=== PATIENT | female | born 1940 | race Caucasian/White ===

== ENCOUNTER 2022-11-08 12:50 | Outpatient (OUT) | payer MEDICARE, OTHER, SELFPAY ==
--- NOTE | 2022-11-08 14:10 | PM.CN ---
Consult Note: HPI Data of Consult Patient: known to practice within the last 3 years Consult date: 11/08/22 Requesting Physician: Elisa Donohue MD Primary Care Provider: Danae Wallace MD Consult Narrative Reason for consult: Low back pain, midback pain Narrative: This is a pleasant 82-year-old female who presents for system. She notes persistence of pain throughout her low back, as well as new pain in her right abdomen. She denies any recent trauma or falls. She previously underwent bilateral sacroiliac joint injections approximately one year ago, which provided greater than fifty percent relief for over a three-month period. She notes similar symptoms as before. She recently underwent lumbar imaging, which is significant for multilevel facet arthropathy throughout her lumbar spine. She has a considerable amount of scoliosis. She denies adverse medication side effects loss of bowel or bladder control. cc:: CC: Elisa Donohue MD Review of Systems ROS Status of ROS 10 or more systems reviewed and unremarkable except as noted in history and below Meds Home Medications and Allergies Home Medications Medication Instructions Recorded Confirmed Type acetaminophen 650 mg 650 mg PO Q8H PAIN 11/08/22 11/08/22 History tablet,extended release (8 Hour Pain Reliever) ascorbic acid (vitamin C) 1,000 mg 1 g PO DAILY 11/08/22 11/08/22 History tablet (Vitamin C) cholecalciferol (vitamin D3) 50 50 mcg PO DAILY 11/08/22 11/08/22 History mcg (2,000 unit) tablet (Vitamin D3) diphenhydramine 25 2 tab PO .HS PRN sleep 11/08/22 11/08/22 History mg-acetaminophen 500 mg tablet (Tylenol PM Extra Strength) magnesium 200 mg tablet 200 mg PO DAILY 11/08/22 11/08/22 History zinc 50 mg tablet 50 mg PO DAILY 11/08/22 11/08/22 History Exam Constitutional Common normals: no apparent distress, oriented x3 and healthy appearing Respiratory Common normals: normal respiratory effort Effort & inspection: able to speak in complete sentences Back & Pelvis Other: tenderness to palpation throughout the lower spine and paraspinal musculature. Pain is elicited with flexion, extension, and lateral rotation of the lumbar spine. Facet loading maneuvers are positive bilaterally. Tenderness to palpation over the bilateral PSIS. Magdy's maneuver is positive bilaterally. Positive thigh thrust bilaterally. Coordination remains intact. Gait remains mildly antalgic. Extremity Common normals: normal to inspection Neuro Common normals: oriented x3, CN's II-XII intact bilaterally and no focal motor deficits Psych Common normals: mental status grossly normal and cooperative Assessment and Plan Assessment and Plan (1) Thoracic back pain: (2) Lumbar spondylosis: (3) Sacroiliac joint pain: Plan This is a pleasant 82-year-old female presents for assessment. She has failed physical medical modalities, as stated above. Given that her pain is similar to the pain that she had prior to her sacroiliac joint injections bilaterally last year, which provided substantial relief for greater than three months, it is prudent to repeat bilateral sacroiliac joint injections provide further analgesia. She is in agreement with this plan. In terms of her new pain in the right abdomen, I would like her to undergo a thoracic x-ray to ensure that there is no compression fracture. She expressed understanding. Medications were reviewed, and no changes were made at this time. She will follow-up after the procedure and imaging are complete.
== END 2022-11-08 12:51 ==
LOC: PM 12:50
PROVIDERS: PCP Family Medicine; Visit Provider Anesthesiology
DX: M54.6 Pain in thoracic spine (principal); M47.814 Spondylosis without myelopathy or radiculopathy, thoracic region; M41.86 Other forms of scoliosis, lumbar region; M53.3 Sacrococcygeal disorders, not elsewhere classified
CPT/HCPCS: 72070; G0463

== ENCOUNTER 2022-11-08 14:03 | Outpatient (OUT) | payer MEDICARE, OTHER, SELFPAY ==
--- NOTE | 2022-11-08 14:15 | XR_ITS ---
[facility] [id number] Patient Name: DACIA ESPINOZA MRN: [id number] date: 1940 Sex: F Assigned Patient Location: [facility] Current Patient Location: [facility] Accession/Order Number: [id number] Exam Date: 11/08/2022 14:29 Report Date: 11/09/2022 09:42 At the request of: ISSAC KIRKPATRICKEDRALOLITA Procedure: XR thoracic spine 2V EXAMINATION: XR thoracic spine 2V HISTORY: Thoracic Back Pain COMPARISON: XR L-spine 11/04/2020 FINDINGS: BONES: Marked scoliotic curvature of lumbar spine and involving the lower thoracic spine. No fracture, spondylolisthesis or bone lesion. DISC SPACES: No significant disc height narrowing, subluxation, or endplate abnormality. PARASPINOUS: Negative. No paraspinous abnormality is seen. OTHER: Negative. IMPRESSION: 1. Grossly stable marked scoliosis of lumbar spine. 2. Multilevel mild degenerative changes of thoracic spine; no appreciable acute abnormality. Electronically authenticated by: MARKY BEAL Date: 11/09/2022 09:42
== END 2022-11-08 14:04 ==
PROVIDERS: PCP Family Medicine; Visit Provider Anesthesiology
DX: M54.6 Pain in thoracic spine (principal); M41.86 Other forms of scoliosis, lumbar region; M47.814 Spondylosis without myelopathy or radiculopathy, thoracic region
CPT/HCPCS: 72070

== ENCOUNTER 2022-11-22 08:27 | Day surgery (SDC) | payer MEDICARE, OTHER, SELFPAY ==
[2022-11-22 09:22] VITALS: BP 162/71; PULSE 71; RESP 16; TEMP 36.6; O2SAT 100
[2022-11-22] MEDS: BUPIVACAINE HCL 0.25% PF 25 MG/10 ML VIAL INJ (10:14)
[2022-11-22] MEDS: IOHEXOL 240 MG/ML - 10 ML VIAL INJ (10:15)
[2022-11-22] MEDS: LIDOCAINE HCL 2% PF 100 MG/5 ML VIAL INJ (10:15)
[2022-11-22] MEDS: TRIAMCINOLONE ACETONIDE 40 MG/ML VIAL INJ (10:16)
--- NOTE | 2022-11-22 10:17 | W.PM.PROCNOT ---
Date of procedure: 11/22/22 Pre-op diagnosis: sacroiliitis, bilateral Post-op diagnosis: same Procedure: Procedure: Bilateral block of the nerve innervating the sacroiliac joint Medications: Bupivacaine 0.25% 3cc, kenalog 40mg x2 After informed consent was obtained, the patient was brought to the medical procedure unit and placed in the prone position, when a timeout was completed verifying correct patient, procedure, site, positioning, implant, and/or special equipment.? The skin overlying the area was prepped and draped in standard sterile fashion using alcohol.? A 25-gauge needle was inserted and guided towards the nerve that innervates the left sacroiliac joint under direct fluoroscopic imaging.? Needle tip was advanced and contrast was injected, which showed no vascular uptake.? We then instilled a total of 3 mL of solution.? Postoperatively needles were removed. The same procedure was then completed on the opposite side. The patient tolerated the procedure well without complication.? The patient reported reduction in pain symptoms postoperatively. Anesthesia: None Surgeon: Elisa Donohue Condition: stable
[2022-11-22 12:25] VITALS: BP 155/69; BP 170/72; PULSE 68; PULSE 79; RESP 18; O2SAT 95; O2SAT 96
== END 2022-11-22 10:23 | disposition home or self-care (01) ==
LOC: SURGOUT 08:31
PROVIDERS: PCP Family Medicine; Visit Provider Anesthesiology
DX: M46.1 Sacroiliitis, not elsewhere classified (principal)
CPT/HCPCS: 27096; Q9966

== ENCOUNTER 2022-12-06 14:45 | Outpatient (OUT) | payer MEDICARE, OTHER, SELFPAY ==
--- NOTE | 2022-12-06 15:15 | PM.CN ---
Consult Note: HPI Data of Consult Patient: known to practice within the last 3 years Consult date: 12/06/22 Requesting Physician: Elisa Donohue MD Primary Care Provider: Danae Wallace MD Consult Narrative Reason for consult: Low back pain, R>L Narrative: this is a pleasant 82-year-old female who presents for this. She recently underwent bilateral sacroiliac joint injections and notes significant relief on her left side, though more moderate relief on her right side. She continues to have axial low back pain which has been ongoing for greater than three months. Her lumbar imaging was reviewed, which is significant for severe facet arthropathy throughout the lower lumbar spine. She notes increasing pain while ambulating. She recently completed physical therapy and continues in provider directed home exercises, which she has performed for greater than three months. She utilizes Tylenol, which she has taken for greater than three months. She denies adverse medication side effects or loss of bowel or bladder control. GHADA 34 cc:: CC: Elisa Donohue MD Review of Systems ROS Status of ROS 10 or more systems reviewed and unremarkable except as noted in history and below PFSH PFS Medical History Surgical History Meds Home Medications and Allergies Home Medications Medication Instructions Recorded Confirmed Type acetaminophen 650 mg 650 mg PO Q8H PAIN 11/08/22 11/22/22 History tablet,extended release (8 Hour Pain Reliever) ascorbic acid (vitamin C) 1,000 mg 1 g PO DAILY 11/08/22 11/22/22 History tablet (Vitamin C) calcium 100 mg capsule mg PO .QD 11/08/22 History carbidopa 25 mg-levodopa 100 mg 1 tab PO QID 11/08/22 11/22/22 History tablet (Sinemet) cholecalciferol (vitamin D3) 50 50 mcg PO DAILY 11/08/22 11/22/22 History mcg (2,000 unit) tablet (Vitamin D3) diphenhydramine 25 2 tab PO .HS PRN sleep 11/08/22 11/22/22 History mg-acetaminophen 500 mg tablet (Tylenol PM Extra Strength) magnesium 200 mg tablet 200 mg PO DAILY 11/08/22 11/22/22 History multivitamin 1 tab PO DAILY 11/08/22 11/22/22 History zinc 50 mg tablet 50 mg PO DAILY 11/08/22 11/22/22 History Allergies Allergy/AdvReac Type Severity Reaction Status Date / Time No Known Drug Allergies Allergy Verified 11/22/22 09:31 Exam Constitutional Common normals: no apparent distress, oriented x3 and healthy appearing Respiratory Common normals: normal respiratory effort Effort & inspection: able to speak in complete sentences Back & Pelvis Other: tenderness to palpation throughout the lumbar spine and paraspinal musculature. Pain is elicited with flexion, extension, and lateral lumbar spine. Facet loading maneuvers are positive bilaterally. Coordination remains intact. Gait remains antalgic. Extremity Common normals: normal to inspection Neuro Common normals: oriented x3, CN's II-XII intact bilaterally and no focal motor deficits Psych Common normals: mental status grossly normal and cooperative Assessment and Plan Assessment and Plan (1) Lumbar spondylosis: (2) Lumbar stenosis with neurogenic claudication: (3) Sacroiliac joint pain: Plan this is a pleasant 82-year-old female who presents for assessment. I wanted she had moderate to significant relief after her recent sacroiliac joint injection, but I suspect that her residual axial back pain as a consequence of the severe facet arthropathy in her lower lumbar spine. Given her symptomatology and imaging findings, coupled with her failure to respond to greater than three months of conservative measures, it is prudent to attempt diagnostic bilateral L4-5, L5-S1 medial branch blocks under fluoroscopic guidance with the intention of proceeding to a frequency ablation. She is in agreement with this plan. Medications were reviewed, and no changes were made at this time. She will follow-up after the procedure is completed.
== END 2022-12-06 14:46 | disposition home or self-care (01) ==
LOC: PM 14:45
PROVIDERS: PCP Family Medicine; Visit Provider Anesthesiology
DX: M47.816 Spondylosis without myelopathy or radiculopathy, lumbar region (principal); M48.062 Spinal stenosis, lumbar region with neurogenic claudication; M53.3 Sacrococcygeal disorders, not elsewhere classified
CPT/HCPCS: G0463

== ENCOUNTER 2022-12-13 07:52 | Day surgery (SDC) | payer MEDICARE, OTHER, SELFPAY ==
[2022-12-13 08:33] VITALS: BP 182/80; PULSE 75; RESP 14; TEMP 36.8; O2SAT 100
[2022-12-13] MEDS: LIDOCAINE HCL 2% PF 100 MG/5 ML VIAL INJ (09:07)
[2022-12-13] MEDS: BUPIVACAINE HCL 0.25% PF 25 MG/10 ML VIAL INJ (09:07)
[2022-12-13] MEDS: TRIAMCINOLONE ACETONIDE 40 MG/ML VIAL INJ (09:07)
--- NOTE | 2022-12-13 09:10 | W.PM.PROCNOT ---
Date of procedure: 12/13/22 Pre-op diagnosis: Lumbosacral spondylosis Post-op diagnosis: same Procedure: Procedure: Bilateral L4-5, L5-S1 medial branch block Medications: Bupivacaine 0.25% 5cc The patient was seen and examined in the preoperative holding area.? An informed consent was obtained and placed on the chart.? The patient was brought to the medical procedure unit and placed in the prone position.? A timeout was completed verifying correct patient, procedure site, positioning, plan, and special equipment.? Using aseptic technique, the needle was placed at left L4. Under direct fluoroscopic visualization a Quincke-tipped spinal needle was advanced to the junction of the superior articulating process with the transverse process at the designated medial branch segment.? Preceded by negative aspiration, the above-mentioned injectate was placed in 1 mL aliquots.? The procedure was repeated at left L5, S1.? The needle was removed and insertion site was covered. The same procedure, at the same levels, was completed on the right side. The patient was taken to the postprocedural recovery area and monitored for an appropriate length of time before found suitable for discharge in the company of a responsible adult. Anesthesia: None Surgeon: Elisa Donohue Pathology: none sent Condition: stable
[2022-12-13 14:34] VITALS: BP 179/77; BP 198/82; PULSE 74; PULSE 76; RESP 18; O2SAT 97; O2SAT 98
== END 2022-12-13 09:17 | disposition home or self-care (01) ==
PROVIDERS: PCP Family Medicine; Visit Provider Anesthesiology
DX: M47.817 Spondylosis without myelopathy or radiculopathy, lumbosacral region (principal)
CPT/HCPCS: 64493; 64494

== ENCOUNTER 2022-12-27 12:50 | Outpatient (OUT) | payer MEDICARE, OTHER, SELFPAY ==
--- NOTE | 2022-12-27 13:19 | PM.CN ---
Consult Note: HPI Data of Consult Patient: known to practice within the last 3 years Consult date: 12/27/22 Requesting Physician: Elisa Donohue MD Primary Care Provider: Danae Wallace MD Consult Narrative Reason for consult: Lumbosacral spondylosis Narrative: This is a pleasant 82-year-old female who presents for assessment. She recently underwent diagnostic bilateral L4-L5, L5-S1 medial branch blocks and notes significant relief of her pain of greater than eighty percent for over two hours and subsequent return of her pain to baseline. She continues to now have persistent axial low back pain. she has engaged in provider directed home exercises for greater than three months. She continues to utilize Tylenol number which provides mild relief, which she has done for over 3 months. She otherwise denies any medication side effects with possible bladder control. cc:: CC: Elisa Donohue MD Review of Systems ROS Status of ROS 10 or more systems reviewed and unremarkable except as noted in history and below PFSH PFS Medical History Surgical History Meds Home Medications and Allergies Home Medications Medication Instructions Recorded Confirmed Type acetaminophen 650 mg 650 mg PO Q8H PAIN 11/08/22 12/13/22 History tablet,extended release (8 Hour Pain Reliever) ascorbic acid (vitamin C) 1,000 mg 1 g PO DAILY 11/08/22 12/13/22 History tablet (Vitamin C) calcium 100 mg capsule mg PO .QD 11/08/22 History carbidopa 25 mg-levodopa 100 mg 1 tab PO QID 11/08/22 12/13/22 History tablet (Sinemet) cholecalciferol (vitamin D3) 50 50 mcg PO DAILY 11/08/22 12/13/22 History mcg (2,000 unit) tablet (Vitamin D3) diphenhydramine 25 2 tab PO .HS PRN sleep 11/08/22 12/13/22 History mg-acetaminophen 500 mg tablet (Tylenol PM Extra Strength) magnesium 200 mg tablet 200 mg PO DAILY 11/08/22 12/13/22 History multivitamin 1 tab PO DAILY 11/08/22 12/13/22 History zinc 50 mg tablet 50 mg PO DAILY 11/08/22 12/13/22 History Allergies Allergy/AdvReac Type Severity Reaction Status Date / Time No Known Drug Allergies Allergy Verified 11/22/22 09:31 Exam Narrative Exam Narrative: GHADA 36 Constitutional Common normals: no apparent distress, oriented x3 and healthy appearing Respiratory Common normals: normal respiratory effort Effort & inspection: able to speak in complete sentences Back & Pelvis Lumbar spine/lower back: pain with ROM Other: tenderness to palpation throughout the lumbar spine and paraspinal musculature. Pain is elicited with flexion, extension, and lateral rotation of the lumbar spine. Facet loading maneuvers are positive bilaterally. Coordination remains intact. Gait remains mildly antalgic. Extremity Common normals: normal to inspection Neuro Common normals: oriented x3, CN's II-XII intact bilaterally and no focal motor deficits Psych Common normals: mental status grossly normal and cooperative Assessment and Plan Assessment and Plan (1) Lumbar stenosis with neurogenic claudication: (2) Lumbar spondylosis: (3) Sacroiliac joint pain: Plan this is a pleasant 82-year-old female who presents for assessment. She had significant relief after her recent lumbar medial branch blocks, as noted above. Given her significant response and failure to respond to conservative measures for greater than three months, as mentioned above, it is prudent to proceed with a 2nd diagnostic bilateral L4-L5, L5-S1 medial branch block under fluoroscopic guidance with the intention of proceeding to radiofrequency ablation. She is in agreement with this plan. Medications were reviewed. I recommended that she not exceed 3000 mg of Tylenol daily. She expressed understanding. She will follow up after the procedures completed.
== END 2022-12-27 12:51 | disposition home or self-care (01) ==
LOC: PM 12:51
PROVIDERS: PCP Family Medicine; Visit Provider Anesthesiology
DX: M47.816 Spondylosis without myelopathy or radiculopathy, lumbar region (principal); M53.3 Sacrococcygeal disorders, not elsewhere classified; M48.062 Spinal stenosis, lumbar region with neurogenic claudication
CPT/HCPCS: G0463

== ENCOUNTER 2023-01-10 09:23 | Day surgery (SDC) | payer MEDICARE, OTHER, SELFPAY ==
[2023-01-10 09:53] VITALS: BP 144/69; PULSE 77; RESP 16; TEMP 36.8; O2SAT 100
[2023-01-10] MEDS: LIDOCAINE HCL 2% PF 100 MG/5 ML VIAL INJ (10:35)
[2023-01-10] MEDS: BUPIVACAINE HCL 0.25% PF 25 MG/10 ML VIAL INJ (10:35)
[2023-01-10] MEDS: TRIAMCINOLONE ACETONIDE 40 MG/ML VIAL INJ (10:35)
--- NOTE | 2023-01-10 10:38 | W.PM.PROCNOT ---
Date of procedure: 01/10/23 Pre-op diagnosis: Lumbosacral spondylosis Post-op diagnosis: same as pre-op Procedure: Procedure: Bilateral L4-5, L5-S1 medial branch block Medications: Bupivacaine 0.25% 4cc The patient was seen and examined in the preoperative holding area.? An informed consent was obtained and placed on the chart.? The patient was brought to the medical procedure unit and placed in the prone position.? A timeout was completed verifying correct patient, procedure site, positioning, plan, and special equipment.? Using aseptic technique, the needle was placed at left L4. Under direct fluoroscopic visualization a Quincke-tipped spinal needle was advanced to the junction of the superior articulating process with the transverse process at the designated medial branch segment.? Preceded by negative aspiration, the above-mentioned injectate was placed in 1 mL aliquots.? The procedure was repeated at left L5, S1.? The needle was removed and insertion site was covered. The same procedure, at the same levels, was completed on the right side. The patient was taken to the postprocedural recovery area and monitored for an appropriate length of time before found suitable for discharge in the company of a responsible adult. Anesthesia: None Surgeon: Elisa Donohue Pathology: none sent Condition: stable Disposition: no change
[2023-01-10 14:20] VITALS: BP 149/68; BP 153/69; PULSE 77; PULSE 80; RESP 20; O2SAT 96
== END 2023-01-10 10:45 | disposition home or self-care (01) ==
PROVIDERS: PCP Family Medicine; Visit Provider Anesthesiology
DX: M47.817 Spondylosis without myelopathy or radiculopathy, lumbosacral region (principal)
CPT/HCPCS: 64493; 64494

== ENCOUNTER 2023-01-24 13:12 | Outpatient (OUT) | payer MEDICARE, OTHER, SELFPAY ==
--- NOTE | 2023-01-24 14:55 | PM.CN ---
Consult Note: HPI Data of Consult Patient: new to practice Consult date: 01/24/23 Requesting Physician: Elisa Donohue MD Primary Care Provider: Danae Wallace MD Consult Narrative Reason for consult: Low back pain Narrative: 82yof who presents for assessment. Underwent diagnostic bilateral L4-5, L5-S1 medial branch blocks x2, both with >80% relief for >2 hours and return of pain to baseline. Now still has low back pain that is axial. Continues in provider directed home exercise program. Utilizes tylenol. Denies side effects. cc:: CC: Elisa Donohue MD Review of Systems ROS Status of ROS 10 or more systems reviewed and unremarkable except as noted in history and below PFSH PFS Medical History Surgical History Meds Home Medications and Allergies Home Medications Medication Instructions Recorded Confirmed Type acetaminophen 650 mg 650 mg PO Q8H PAIN 11/08/22 01/10/23 History tablet,extended release (8 Hour Pain Reliever) ascorbic acid (vitamin C) 1,000 mg 1 g PO DAILY 11/08/22 01/10/23 History tablet (Vitamin C) calcium 100 mg capsule mg PO .QD 11/08/22 History carbidopa 25 mg-levodopa 100 mg 1 tab PO QID 11/08/22 01/10/23 History tablet (Sinemet) cholecalciferol (vitamin D3) 50 50 mcg PO DAILY 11/08/22 01/10/23 History mcg (2,000 unit) tablet (Vitamin D3) diphenhydramine 25 2 tab PO .HS PRN sleep 11/08/22 01/10/23 History mg-acetaminophen 500 mg tablet (Tylenol PM Extra Strength) magnesium 200 mg tablet 200 mg PO DAILY 11/08/22 01/10/23 History multivitamin 1 tab PO DAILY 11/08/22 01/10/23 History zinc 50 mg tablet 50 mg PO DAILY 11/08/22 01/10/23 History Allergies Allergy/AdvReac Type Severity Reaction Status Date / Time No Known Drug Allergies Allergy Verified 11/22/22 09:31 Exam Narrative Exam Narrative: GHADA 20 Constitutional Common normals: no apparent distress, oriented x3 and healthy appearing Respiratory Common normals: normal respiratory effort Effort & inspection: able to speak in complete sentences Back & Pelvis Lumbar spine/lower back: pain with ROM Other: tenderness to palpation throughout the lumbar spine and paraspinal musculature. Pain is elicited with flexion, extension, and lateral rotation of the lumbar spine. Facet loading maneuvers are positive bilaterally. Coordination remains intact. Gait remains mildly antalgic. Extremity Common normals: normal to inspection Neuro Common normals: oriented x3, CN's II-XII intact bilaterally and no focal motor deficits Psych Common normals: mental status grossly normal and cooperative Assessment and Plan Assessment and Plan (1) Lumbar spondylosis: (2) Lumbar stenosis with neurogenic claudication: Plan PLeasant 82yof who presents for assessment. Underwent lumbar medial branch blocks, as noted above. Given significant response, prudent to proceed with bilateral L4-5, l5-S1 radiofrequency ablation under fluoroscopic guidance. Will do at 80 degrees Celsius at each level for 90 seconds. She is in agreement. Medications reviewed. No changes. Follow up after procedure.
== END 2023-01-24 13:13 | disposition home or self-care (01) ==
LOC: PM 13:12
PROVIDERS: PCP Family Medicine; Visit Provider Anesthesiology
DX: M47.816 Spondylosis without myelopathy or radiculopathy, lumbar region (principal); M48.062 Spinal stenosis, lumbar region with neurogenic claudication
CPT/HCPCS: G0463

== ENCOUNTER 2023-02-07 09:22 | Day surgery (SDC) | payer MEDICARE, OTHER, SELFPAY ==
[2023-02-07 10:27] VITALS: BP 155/70; PULSE 72; RESP 18; TEMP 36.6; O2SAT 99
[2023-02-07 11:02] VITALS: BP 160/72; PULSE 80; RESP 18; O2SAT 99
[2023-02-07] MEDS: BUPIVACAINE HCL 0.25% PF 25 MG/10 ML VIAL INJ (11:04)
[2023-02-07] MEDS: LIDOCAINE HCL 2% 400 MG/20 ML MDV 15 ML INJ (11:04)
[2023-02-07] MEDS: TRIAMCINOLONE ACETONIDE 40 MG/ML VIAL INJ (11:05)
[2023-02-07 11:08] VITALS: BP 162/65; PULSE 77; RESP 18; O2SAT 99
--- NOTE | 2023-02-07 11:16 | P.ON_ITS ---
Date of procedure: 02/07/23 Pre-op diagnosis: Lumbar spondylosis Post-op diagnosis: same as pre-op Procedure: Procedure: Bilateral L4-5, L5-S1 radiofrequency ablation Medications: Bupivacaine 0.25% 6cc, kenalog 80mg, lidocaine 1% 4cc The patient was seen and examined in the preoperative holding area.? The site was marked.? Written informed consent was obtained and placed on the chart.? The patient was brought to the medical procedure unit and placed in the prone position.? A timeout was completed verifying correct patient, procedure, positioning, and special requirements.? The skin overlying the target points, the designated medial branch, were prepped and draped in the usual sterile fashion.? The target point was achieved with a 20-gauge 15 cm with a 10 mm curved active tip radiofrequency cannula under direct fluoroscopic visualization.? The needle was inserted at level L4 on the right side. Needle tip position was confirmed with lateral fluoroscopic position.? Motor stimulation was carried out at 2 Hz up to 5 volts with the absence of extremity activity.? This was repeated at level L5, S1 on right side.?? Sensory stimulation was carried out.? Concordant pain was realized at the above- mentioned sites.? Then radiofrequency lesioning was carried out times 90 seconds at 80 degrees times 2 lesions at each level.? The radiofrequency probe was removed prior to cannula removal.? The above-mentioned injectate was placed in 1 mL increments.? The needle was removed. The same procedure, with the same steps, was then completed on the left side at the same levels. Insertion sites were covered.? The patient was taken to the postoperative recovery area and monitored for an appropriate length of time before being found suitable for discharge in the company of a responsible adult. Anesthesia: Local Surgeon: Elisa Donohue Pathology: none sent Condition: stable Disposition: no change
== END 2023-02-07 11:27 | disposition home or self-care (01) ==
LOC: SURGOUT 09:24
PROVIDERS: PCP Family Medicine; Visit Provider Anesthesiology
DX: M47.816 Spondylosis without myelopathy or radiculopathy, lumbar region (principal)
CPT/HCPCS: 64635; 64636

== ENCOUNTER 2023-03-07 12:58 | Outpatient (OUT) | payer MEDICARE, OTHER, SELFPAY ==
--- NOTE | 2023-03-07 13:31 | PM.CN ---
Consult Note: HPI Data of Consult Patient: known to practice within the last 3 years Consult date: 03/07/23 Requesting Physician: Elisa Donohue MD Primary Care Provider: Danae Wallace MD Consult Narrative Reason for consult: Low back and right lower extremity pain Narrative: 82yof who presents for assessment. Notes mild improvement after lumbar RFA, but now has new pain in right low back that affects right lower extremity. No recent advanced imaging available for review. Continues in provider directed home exercise program >6 weeks, with limited benefit. Uses tylenol, does not want pain medications otherwise. Denies adverse medication side effects. cc:: CC: Elisa Donohue MD Review of Systems ROS Status of ROS 10 or more systems reviewed and unremarkable except as noted in history and below PFSH PFSH Medical History Parkinson disease ?G20 - Parkinson's disease (ICD-10) Surgical History History of phacoemulsification of cataract of both eyes with intraocular lens implantation ?Z98.41 - Cataract extraction status, right eye (ICD-10) ?Z98.42 - Cataract extraction status, left eye (ICD-10) ?Z96.1 - Presence of intraocular lens (ICD-10) Meds Home Medications and Allergies Home Medications Medication Instructions Recorded Confirmed Type acetaminophen 650 mg 650 mg PO Q8H PAIN 11/08/22 02/07/23 History tablet,extended release (8 Hour Pain Reliever) ascorbic acid (vitamin C) 1,000 mg 1 g PO DAILY 11/08/22 02/07/23 History tablet (Vitamin C) calcium 100 mg capsule mg PO .QD 11/08/22 History carbidopa 25 mg-levodopa 100 mg 1 tab PO QID 11/08/22 02/07/23 History tablet (Sinemet) cholecalciferol (vitamin D3) 50 50 mcg PO DAILY 11/08/22 02/07/23 History mcg (2,000 unit) tablet (Vitamin D3) diphenhydramine 25 2 tab PO .HS PRN sleep 11/08/22 02/07/23 History mg-acetaminophen 500 mg tablet (Tylenol PM Extra Strength) magnesium 200 mg tablet 200 mg PO DAILY 11/08/22 02/07/23 History multivitamin 1 tab PO DAILY 11/08/22 02/07/23 History zinc 50 mg tablet 50 mg PO DAILY 11/08/22 02/07/23 History entacapone 200 mg tablet 200 mg PO BID 01/25/23 02/07/23 History Allergies Allergy/AdvReac Type Severity Reaction Status Date / Time No Known Drug Allergies Allergy Verified 02/07/23 10:23 Exam Narrative Exam Narrative: Psych-alert and oriented x 3. Attentive and appropriate, constitutionally normal, displays normal mood and affect per situation. There are no obvious deficits in memory, reasoning, or intellect.? Skin-no obvious rashes, bruising, erythema noted to the patient's area of pain.? Extremities- extremities are warm with minimal edema and palpable pulses. Lumbar-tenderness to palpation noted in the lumbar spine and paraspinal musculature. Pain is not elicited with flexion, extension, and lateral rotation of the lumbar spine. Range of motion is not diminished with these motions. Facet loading maneuvers are negative.? Strength-noted to be unremarkable with the exception of decreased strength rated at 4 out of 5 in right quadriceps femoris, anterior tibialis. Sensory-no notable sensory deficits in the bilateral lower extremities to touch or pinprick in all dermatomal distributions with the exception to decreased sensation to the right L3, 4, 5 dermatomal distribution Coordination remains intact.? Gait remains non-antalgic. Assessment and Plan Assessment and Plan (1) Lumbar stenosis with neurogenic claudication: (2) Lumbar spondylosis: Plan 82yof who present for assessment. Notes new worsening pain from right low back to right lower extremity. Last MRI was in 2017. Given new and worsening symptoms, coupled with failure to respond to conservative measures, would like her to undergo lumbar MRI without contrast. She is in agreement. Meds reviewed, no changes. Encouraged to use tylenol as needed. Follow up after imaging.
== END 2023-03-07 12:59 | disposition home or self-care (01) ==
LOC: PM 13:02
PROVIDERS: PCP Family Medicine; Visit Provider Anesthesiology
DX: M48.062 Spinal stenosis, lumbar region with neurogenic claudication (principal); M47.816 Spondylosis without myelopathy or radiculopathy, lumbar region
CPT/HCPCS: G0463

== ENCOUNTER 2023-03-15 12:25 | Outpatient (OUT) | payer MEDICARE, OTHER, SELFPAY ==
--- NOTE | 2023-03-15 12:28 | MR_ITS ---
[facility] [place] [id number] Patient Name: DACIA ESPINOZA MRN: [id number] date: 1940 Sex: F Assigned Patient Location: MRI Current Patient Location: MRI Accession/Order Number: [id number] Exam Date: 03/15/2023 12:40 Report Date: 03/15/2023 14:15 At the request of: ISSAC GIEDRALOLITA Procedure: MR lumbar spine wo con MR lumbar spine wo con, 03/15/2023 12:40 PM EDT INDICATION: Lumbar Stenosis COMPARISON: This study was compared to the prior x-ray dated 11/04/2020 TECHNIQUE: Multiplanar, multisequential MRI images of lumbar spine were obtained without contrast. FINDINGS: For dictation purposes, the lowest complete disc space in the lumbar spine considered as L5-S1. There is significant levoscoliosis centered on L2-L3. The vertebral height is relatively preserved. The conus medullaris is at the level of L1. No signal abnormality within the visualized spinal cord is noted. Level of T12-L1, the neuroforaminal narrowing cannot be evaluated. No significant canal stenosis is noted At the level of L1-L2, there are disc bulge. The neuroforaminal narrowing cannot be evaluated. There is no canal stenosis. At the level of L2-L3, there are disc bulge with mild right neuroforaminal narrowing and no canal stenosis. At the level of L3-4, there are disc bulge with moderate right and mild left neuroforaminal narrowing and moderate canal stenosis. At the level of L4-5, there are disc bulge with mild right and moderate left neuroforaminal narrowing and moderate canal stenosis. At the level of L5-S1, there are disc bulge with moderate bilateral neuroforaminal narrowing and no canal stenosis. The paraspinal muscles show moderate fatty atrophy. 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 MR/MR lumbar spine wo con IMPRESSION: Severe levoscoliosis. Moderate degenerative changes of lumbar spine in particular at L3-L4 and L4-L5. Electronically authenticated by: KENYETTA ESPINO Date: 03/15/2023 14:15
== END 2023-03-15 12:26 | disposition home or self-care (01) ==
LOC: MRI 12:26
PROVIDERS: PCP Family Medicine; Visit Provider Anesthesiology
DX: M48.061 Spinal stenosis, lumbar region without neurogenic claudication (principal); M47.816 Spondylosis without myelopathy or radiculopathy, lumbar region; M41.86 Other forms of scoliosis, lumbar region
CPT/HCPCS: 72148

== ENCOUNTER 2023-03-28 10:43 | Outpatient (OUT) | payer MEDICARE, OTHER, SELFPAY ==
--- NOTE | 2023-03-28 11:33 | PM.CN ---
Consult Note: HPI Data of Consult Patient: known to practice within the last 3 years Consult date: 03/28/23 Requesting Physician: Elisa Donohue MD Primary Care Provider: Danae Wallace MD Consult Narrative Reason for consult: Low back, left leg pain Narrative: 82yof who presents for assessment. Worsening low back pain that radiates into left lower extremity, worst at night. MRI reviewed, which is significant for multilevel lumbar stenosis, worst at L4-5 and L5-S1. Continues in provider directed home exercise program for >6 weeks, with minimal benefit. Also uses tylenol, which helps. cc:: CC: Elisa Donohue MD Review of Systems ROS Status of ROS 10 or more systems reviewed and unremarkable except as noted in history and below PFSH PFSH Medical History Parkinson disease ?G20 - Parkinson's disease (ICD-10) Surgical History History of phacoemulsification of cataract of both eyes with intraocular lens implantation ?Z98.41 - Cataract extraction status, right eye (ICD-10) ?Z98.42 - Cataract extraction status, left eye (ICD-10) ?Z96.1 - Presence of intraocular lens (ICD-10) Meds Home Medications and Allergies Home Medications Medication Instructions Recorded Confirmed Type acetaminophen 650 mg 650 mg PO Q8H PAIN 11/08/22 02/07/23 History tablet,extended release (8 Hour Pain Reliever) ascorbic acid (vitamin C) 1,000 mg 1 g PO DAILY 11/08/22 02/07/23 History tablet (Vitamin C) calcium 100 mg capsule mg PO .QD 11/08/22 History carbidopa 25 mg-levodopa 100 mg 1 tab PO QID 11/08/22 02/07/23 History tablet (Sinemet) cholecalciferol (vitamin D3) 50 50 mcg PO DAILY 11/08/22 02/07/23 History mcg (2,000 unit) tablet (Vitamin D3) diphenhydramine 25 2 tab PO .HS PRN sleep 11/08/22 02/07/23 History mg-acetaminophen 500 mg tablet (Tylenol PM Extra Strength) magnesium 200 mg tablet 200 mg PO DAILY 11/08/22 02/07/23 History multivitamin 1 tab PO DAILY 11/08/22 02/07/23 History zinc 50 mg tablet 50 mg PO DAILY 11/08/22 02/07/23 History entacapone 200 mg tablet 200 mg PO BID 01/25/23 02/07/23 History Allergies Allergy/AdvReac Type Severity Reaction Status Date / Time No Known Drug Allergies Allergy Verified 02/07/23 10:23 Exam Narrative Exam Narrative: Psych-alert and oriented x 3. Attentive and appropriate, constitutionally normal, displays normal mood and affect per situation. There are no obvious deficits in memory, reasoning, or intellect.? Skin-no obvious rashes, bruising, erythema noted to the patient's area of pain.? Extremities- extremities are warm with minimal edema and palpable pulses. Lumbar-tenderness to palpation noted in the lumbar spine and paraspinal musculature. Pain is not elicited with flexion, extension, and lateral rotation of the lumbar spine. Range of motion is not diminished with these motions. Facet loading maneuvers are negative.? Strength-noted to be unremarkable with the exception of decreased strength rated at 4 out of 5 in left quadriceps femoris, anterior tibialis. Sensory-no notable sensory deficits in the bilateral lower extremities to touch or pinprick in all dermatomal distributions with the exception to decreased sensation to the left L4, l5 dermatomal distribution? Sacroiliitis - tenderness over left PSIS. Positive thigh thrust on the left. Magdy's maneuver positive on left. Coordination remains intact.? Gait remains non-antalgic Assessment and Plan Assessment and Plan (1) Lumbar stenosis with neurogenic claudication: (2) Sacroiliac joint pain: Plan 82yof who presents for assessment. failed physical and medical modalities, as noted. imaging reviewed, as noted. given imaging and symptoms, prudent to attempt left L4-5, L5-S1 tfesi under fluoroscopic guidance. may also benefit from left block of the nerve innervating the sacroiliac joint. she will call to schedule when she is ready. medications reviewed, no changes. follow up after procedure.
== END 2023-03-28 10:44 | disposition home or self-care (01) ==
LOC: PM 10:44
PROVIDERS: PCP Family Medicine; Visit Provider Anesthesiology
DX: M48.062 Spinal stenosis, lumbar region with neurogenic claudication (principal)
CPT/HCPCS: G0463

== ENCOUNTER 2023-07-25 15:33 | Outpatient (OUT) | payer MEDICARE, OTHER, SELFPAY ==
--- NOTE | 2023-07-25 15:42 | XR_ITS ---
[facility] [place] [address] Patient Name: DACIA ESPINOZA MRN: [id number] date: 1940 Sex: F Assigned Patient Location: [facility] Current Patient Location: Accession/Order Number: [id number] Exam Date: 07/25/2023 16:00 Report Date: 07/26/2023 07:50 At the request of: AMRITA GRANT Procedure: XR lumbar spine 2-3V EXAMINATION: XR lumbar spine 2-3V HISTORY: right side rib pain R07.81, Lumbar back pain M54.50 COMPARISON: No relevant comparison available. FINDINGS: BONES: Severe degenerative rotatory levoscoliosis measuring 57 degrees from T12 to L4. Severe diffuse degenerative spondylosis and facet osteoarthropathy DISC SPACES: Multilevel disc space narrowing with endplate sclerosis PARASPINOUS: Negative. No paraspinous abnormality is seen. OTHER: Vascular calcifications XR/XR lumbar spine 2-3V IMPRESSION: Severe degenerative changes with rotatory levoscoliosis Electronically authenticated by: PING AYALA Date: 07/26/2023 07:50
--- NOTE | 2023-07-25 15:43 | XR_ITS ---
[address] [address] Patient Name: DACIA ESPINOZA MRN: [id number] date: 1940 Sex: F Assigned Patient Location: [facility] Current Patient Location: [facility] Accession/Order Number: [id number] Exam Date: 07/25/2023 16:00 Report Date: 07/26/2023 07:53 At the request of: AMRITA GRANT Procedure: XR ribs RT min 3V w CXR1V EXAMINATION: XR ribs RT min 3V w CXR1V HISTORY: right side rib pain R07.81, Lumbar back pain M54.50 COMPARISON: No relevant comparison available. FINDINGS: LUNGS: No significant pulmonary parenchymal abnormalities. Hyperinflation. Biapical pleural parenchymal opacities likely scarring PLEURA: No pneumothorax, effusion, or pleural thickening. MEDIASTINUM: No visible mass or adenopathy. CARDIAC: No cardiomegaly or cardiac silhouette abnormality. RIBS: No acute rib fracture OTHER: Severe degenerative rotatory levoscoliosis of the thoracolumbar spine XR/XR ribs RT min 3V w CXR1V IMPRESSION: No acute rib fracture Electronically authenticated by: PING AYALA Date: 07/26/2023 07:53
== END 2023-07-25 15:34 | disposition home or self-care (01) ==
LOC: RAD 15:35
PROVIDERS: PCP Family Medicine; Visit Provider Family Medicine
DX: R07.81 Pleurodynia (principal); M54.50 Low back pain, unspecified; M51.36 Other intervertebral disc degeneration, lumbar region
CPT/HCPCS: 71101; 72100

== ENCOUNTER 2024-02-06 14:42 | Outpatient (OUT) | payer MEDICARE, OTHER, SELFPAY ==
--- NOTE | 2024-02-06 16:15 | P.CN_ITS ---
Consult Note: HPI Data of Consult Patient: known to practice within the last 3 years Consult date: 02/06/24 Requesting Physician: Elisa Donohue MD Primary Care Provider: Danae Wallace MD Consult Narrative Reason for consult: midback, low back, right leg pain Narrative: 83yof who presents for assessment. notes worsening pain in midback, low back, right leg. recently has had several falls, but no imaging to evaluate her ribs, where she has acute pain. right leg tends to feel weak. 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 continues in a series of provider directed home exercises >6 weeks, without benefit. uses tylenol prn. cc:: CC: Elisa Donohue MD Review of Systems ROS Status of ROS 10 or more systems reviewed and unremark able except as noted in history and below PFSH PFS Medical History Parkinson disease ?G20 - Parkinson's disease (ICD-10) Surgical History History of phacoemulsification of cataract of both eyes with intraocular lens implantation ?Z98.41 - Cataract extraction status, right eye (ICD-10) ?Z98.42 - Cataract extraction status, left eye (ICD-10) ?Z96.1 - Presence of intraocular lens (ICD-10) Meds Home Medications and Allergies Home Medications ?Medication ?Instructions ?Recorded ?Confirmed ?Type acetaminophen 650 mg 650 mg PO Q8H PAIN 11/08/22 02/07/23 History tablet,extended release (8 Hour Pain Reliever) ascorbic acid (vitamin C) 1,000 mg 1 g PO DAILY 11/08/22 02/07/23 History tablet (Vitamin C) calcium 100 mg capsule mg PO .QD 11/08/22 History carbidopa 25 mg-levodopa 100 mg 1 tab PO QID 11/08/22 02/07/23 History tablet (Sinemet) cholecalciferol (vitamin D3) 50 50 mcg PO DAILY 11/08/22 02/07/23 History mcg (2,000 unit) tablet (Vitamin D3) diphenhydramine 25 2 tab PO .HS PRN sleep 11/08/22 02/07/23 History mg-acetaminophen 500 mg tablet (Tylenol PM Extra Strength) magnesium 200 mg tablet 200 mg PO DAILY 11/08/22 02/07/23 History multivitamin 1 tab PO DAILY 11/08/22 02/07/23 History zinc 50 mg tablet 50 mg PO DAILY 11/08/22 02/07/23 History entacapone 200 mg tablet 200 mg PO BID 01/25/23 02/07/23 History acetaminophen 300 mg-codeine 30 mg 1 tab PO BID PRN pain #60 tabs 02/06/24 Rx tablet Allergies Allergy/AdvReac Type Severity Reaction Status Date / Time No Known Drug Allergies Allergy Verified 02/07/23 10:23 Exam Narrative Exam Narrative: Psych-alert and oriented x 3. Attentive and appropriate, constitutionally normal, displays normal mood and affect per situation. There are no obvious deficits in memory, reasoning, or intellect.? Skin-no obvious rashes, bruising, erythema noted to the patient's area of pain.? Extremities- extremities are warm with minimal edema and palpable pulses. Lumbar-tenderness to palpation noted in the lumbar spine and paraspinal musculature. Pain is elicited with flexion, extension, and lateral rotation of the lumbar spine. Range of motion is diminished with these motions. Facet loading maneuvers are positive.? Strength-noted to be unremarkable with the exception of decreased strength rated at 4 out of 5 in right quadriceps femoris. Sensory-no notable sensory deficits in the bilateral lower extremities to touch or pinprick in all dermatomal distributions with the exception to decreased sensation to the right L4, 5 dermatomal distribution Coordination remains intact.? Gait remains non-antalgic. Assessment and Plan Assessment and Plan (1) Lumbar stenosis with neurogenic claudication: (2) Sacroiliac joint pain: (3) Thoracic back pain: Qualifiers: Chronicity: acute Back pain laterality: right Qualified Code(s): M54.6 - Pain in thoracic spine Plan 83yof who presents for assessment. failed conservative measures, as noted. imaging reviewed, as noted. given symptoms and imaging, prudent to attempt right l4-5, l5-s1 tfesi under fluoroscopic guidance. she may even benefit from right sij injection. she is in agreement. in terms of midback and right rib pain, will order xr of right ribs, thoracic spine, lumbar spine. she is in agreement. meds reviewed. pdmp reviewed. will trial t#3 bid prn. follow up after procedure.
== END 2024-02-06 14:43 | disposition home or self-care (01) ==
PROVIDERS: PCP Family Medicine; Visit Provider Anesthesiology
DX: R07.81 Pleurodynia (principal); M46.1 Sacroiliitis, not elsewhere classified; M47.814 Spondylosis without myelopathy or radiculopathy, thoracic region; M48.062 Spinal stenosis, lumbar region with neurogenic claudication; M54.6 Pain in thoracic spine
CPT/HCPCS: 71100; 72070; 72110; G0463

== ENCOUNTER 2024-02-06 15:56 | Outpatient (OUT) | payer MEDICARE, OTHER, SELFPAY ==
--- NOTE | 2024-02-06 16:40 | XR_ITS ---
[place] [id number] Patient Name: DACIA ESPINOZA MRN: [id number] date: 1940 Sex: F Assigned Patient Location: [facility] Current Patient Location: Accession/Order Number: [id number] Exam Date: 02/06/2024 16:25 Report Date: 02/07/2024 06:34 At the request of: ANDRIUS GIEDRAITIS Procedure: XR thoracic spine 2V 2 views of the thoracic spine INDICATION: Pain COMPARISON: 11/08/2022 XR/XR thoracic spine 2V IMPRESSION: Moderate multilevel degenerative changes of the thoracic spine without evidence for acute fracture or subluxation. Soft tissues grossly unremarkable. Electronically authenticated by: JUAN WARD Date: 02/07/2024 06:34
== END 2024-02-06 15:57 | disposition home or self-care (01) ==
PROVIDERS: PCP Family Medicine; Visit Provider Anesthesiology
DX: R07.81 Pleurodynia (principal); M48.061 Spinal stenosis, lumbar region without neurogenic claudication; M46.1 Sacroiliitis, not elsewhere classified; M47.814 Spondylosis without myelopathy or radiculopathy, thoracic region
CPT/HCPCS: 71100; 72070; 72110

== ENCOUNTER 2024-02-20 10:41 | Day surgery (SDC) | payer MEDICARE, OTHER, SELFPAY ==
[2024-02-20 10:59] VITALS: BP 142/72; PULSE 74; TEMP 36.6; O2SAT 97
--- OUTSIDE RECORDS SUMMARY | 2024-02-20 11:02 | XMS_ITS | CCD ---
Author Organization [facility] [place] [facility] [place] Providers Care Permaculture Designer Name Role Phone Reilly, Maximilian Unavailable Unavailable Zahler, Maximilian Unavailable Unavailable Reilly, Maximilian Unavailable Unavailable NATALIE [phone] UNKNOWN Unavailable Unavailable RUDY, DR DANAE Rosa Admitting Unavailable RUDY, DR DANAE Rosa Attending Unavailable RUDY, DR DANAE Rosa Primary Care Unavailable WEST, DR PING Valentin Consulting Unavailable ERNAEBJENNA, DR MARKY Irhaeta Consulting Unavailable RUDY, DR DANAE Rosa Consulting Unavailable MAGGI, EVARISTO Admitting Unavailable MAGGI, EVARISTO Attending Unavailable RUDY, DR DANAE Rosa Primary Care Unavailable MAGGI, EVARISTO Consulting Unavailable MAGGI, EVARISTO Admitting Unavailable MAGGI, EVARISTO Attending Unavailable RUDY, DR DANAE Rosa Primary Care Unavailable MAGGI, EVARISTO Consulting Unavailable MAGGI, EVARISTO Admitting Unavailable MAGGI, EVARISTO Attending Unavailable RUDY, DR DANAE Rosa Primary Care Unavailable MAGGI, EVARISTO Consulting Unavailable MAGGI, EVARISTO Admitting Unavailable MAGGI, EVARISTO Attending Unavailable DR DANAE GRANT Referring Unavailable DR DANAE GRANT Primary Care Unavailable MD Danae Grant Primary Care Provider MD Danae Grant Referring Provider MD Ankit Resendiz Attending Provider MD Danae Grant Primary Care Provider MD Ankit Resendiz Attending Provider MD Danae Grant Primary Care Provider Community, Outreach Attending Provider Danae Grant Unavailable MD Danae Grant Attending Provider [phone] NO FAMILY, PHYSICIAN Primary Care Unavailable Grant, Danae E Admitting Unavailable Grant, Danae E Attending Unavailable Grant, Danae E Primary Care Unavailable Grant, Danae E Referring Unavailable Bej, Ankit D Admitting Unavailable Bej, Ankit D Attending Unavailable Grant, Danae E Primary Care Unavailable BejAnkit D Admitting Unavailable Bej, Ankit D Attending Unavailable Grant, Danae E Primary Care Unavailable Community, Outreach Admitting Unavailable Community, Outreach Attending Unavailable BEJ, ANKIT D Attending Unavailable RENE, ENRIQUE Attending Unavailable BEJ, ANKIT D Referring Unavailable RENE, ENRIQUE Attending Unavailable BEJ, ANKIT D Referring Unavailable WENGERD, SHERYL Attending Unavailable BEJ, ANKIT D Referring Unavailable WENGERD, SHERYL Attending Unavailable BEJ, ANKIT D Referring Unavailable RENE, ENRIQUE Attending Unavailable BEJ, ANKIT D Referring Unavailable RENE, ENRIQUE Attending Unavailable BEJ, ANKIT D Referring Unavailable WENGERD, SHERYL Attending Unavailable BEJ, ANKIT D Referring Unavailable RENE, ENRIQUE Attending Unavailable BEJ, ANKIT D Referring Unavailable BEJ, ANKIT D Attending Unavailable WENGERD, SHERYL Attending Unavailable BEJANKIT D Referring Unavailable RENE, ENRIQUE Attending Unavailable BEJ, ANKIT D Referring Unavailable WENGERD, SHERYL Attending Unavailable BEJ, ANKIT D Referring Unavailable WENGERD, SHERYL Attending Unavailable BEJ, ANKIT D Referring Unavailable WENGERD, SHERYL Attending Unavailable BEJ, ANKIT D Referring Unavailable WENGERD, SHERYL Attending Unavailable BEJ, ANKIT D Referring Unavailable RENE, ENRIQUE Attending Unavailable BEJ, ANKIT D Referring Unavailable WENGERD, SHERYL Attending Unavailable BEJ, ANKIT D Referring Unavailable RENE, ENRIQUE Attending Unavailable BEJ, ANKIT D Referring Unavailable BEJ, ANKIT D Attending Unavailable Gieditis , Andrius Johnathan Attending Unavailable Gieditis , Andrius Vytfloresita Attending Unavailable Gieditis , Andrius Vytfloresita Attending Unavailable Allergies Allergy Classification Reported Allergen(s) Allergy Type Date of Onset Reaction(s) Facility (1 source) No Known Medication Allergies; Translations: [No Known Medication Allergies] Propensity to adverse reactions (disorder) [facility] Repository Medications Current Medications Medication Drug Class(es) Dates Sig (Normalized) Sig (Original) aspirin 300 mg rectal suppository (5 sources) Platelet Aggregation Inhibitor, Nonsteroidal Anti-inflammatory Drug take 0.5 tablet by mouth once daily Aspirin 300 MG 1/2 tablet Orally Once a day Active Calcium (5 sources) Phosphate Binder, Calcium Calcium 250 MG as directed Orally Active carbidopa 10 mg / levodopa 100 mg oral tablet (5 sources) Aromatic Amino Acid Decarboxylation Inhibitor, Aromatic Amino Acid take 1 tablet by mouth every six hours Sinemet 10-100 MG 1 tablet Orally four times a day Active entacapone 200 mg oral tablet (3 sources) Havrbbaw-Y-Uvenvhowxr sferase Inhibitor take 1 tablet by mouth every six hours Entacapone 200 MG 1 tablet Orally qid Active Fish Oils (5 sources) take 1 capsule by mouth twice daily Fish Oil 500 MG 1 capsule Orally Twice a day Active Magnesium (5 sources) take 2 tablets by mouth twice daily at mealtime Magnesium 100 MG 2 tablets with meals Orally Twice a day Active 24 hr mirabegron 25 mg extended release oral tablet (4 sources) beta3-Adrenergic Agonist Start: 02-15-2023 take 1 tablet by mouth every twenty-four hours Myrbetriq 25 MG 1 tablet Orally Once a day for 30 day(s) Jan, Active Multivitamin preparation (5 sources) Multivitamin Active vitamin b12 0.1 mg oral tablet (1 source) Vitamin B12 Vitamin B12 100 MCG as directed Orally Active Vitamin B12 100 MCG (4 sources) Vitamin B12 100 MCG as directed Orally Active Vitamin C 1000 MG (5 sources) take 1 tablet by mouth once daily Vitamin C 1000 MG 1 tablet Orally Once a day Active Vitamin D 1000 UNIT (5 sources) take 1 tablet by mouth once daily Vitamin D 1000 UNIT 1 tablet Orally Once a day Active Zinc (5 sources) take 1 tablet by mouth once daily Zinc 100 MG 1 tablet Orally Once a day Active Problems Active Problems Problem Classification Problem Date Documented Date Episodic/Chronic Genitourinary symptoms and ill-defined conditions (9 sources) Mixed urinary incontinence; Translations: [Mixed incontinence] Onset: 02-08-2023 Chronic Other acquired deformities (5 sources) Leg length inequality; Translations: [Unequal limb length (acquired), unspecified site] Episodic Other nervous system disorders (1 source) Polyneuropathy, unspecified; Translations: [Polyneuropathy, unspecified] Onset: 04-12-2022 Chronic Other nervous system disorders (5 sources) Abnormal gait; Translations: [Other abnormalities of gait and mobility] Episodic Other screening for suspected conditions (not mental disorders or infectious disease) (2 sources) Encounter for screening mammogram for malignant neoplasm of breast; Translations: [Abnormal findings on diagnostic imaging of other parts of musculoskeletal system] Onset: 06-04-2021 Episodic Parkinson`s disease (5 sources) Parkinson's disease; Translations: [Parkinson's disease] Chronic Spondylosis; intervertebral disc disorders; other back problems (1 source) Spondylosis without myelopathy or radiculopathy, lumbar region; Translations: [SPONDYLS W/O MYELO-/RADICULOP LUMB] Onset: 11-25-2021 Chronic Spondylosis; intervertebral disc disorders; other back problems (1 source) Sacrococcygeal disorders, not elsewhere classified; Translations: [SACROCOCCYGEAL DISORDERS NEC] Onset: 11-25-2021 Episodic Unclassified (3 sources) LOW BACK PAIN, UNSPECIFIED; Translations: [LOW BACK PAIN, UNSPECIFIED] Onset: 11-25-2021 Past or Other Problems Problem Classification Problem Date Documented Da te Episodic/Chronic Residual codes; unclassified (4 sources) Asymptomatic menopausal state; Translations: [ASYMPTOMATIC MENOPAUSAL STATE] Onset: 05-28-2021 Episodic Residual codes; unclassified (1 source) Family history of malignant neoplasm of breast; Translations: [FAMILY HX MALIG NEOPLASM OF BREAST] Onset: 06-04-2021 Episodic Residual codes; unclassified (1 source) Family history of leukemia; Translations: [FAMILY HISTORY OF LEUKEMIA] Onset: 06-04-2021 Episodic Unclassified (1 source) LOW BACK PAIN, UNSPECIFIED; Translations: [LOW BACK PAIN, UNSPECIFIED] Onset: 11-20-2021 Results Test Name Value Interpretation Reference Range Facility Urinalysis - DIPSTICKon 01-28 Appearance (U) cloudy [facility] Other Bilirubin Ql (U) small brotips Other Color (U) orange [facility] Other Glucose Ql (U) Negative [facility] Other Hemoglobin Ql (U) Negative [facility] Other Ketones Ql (U) off chart [facility] Other Leukocyte esterase Test strip Ql (U) off chart [facility] Other Nitrite Ql (U) Negative [facility] Other pH (U) trace [facility] Other Protein Ql (U) trace [facility] Other Specific gravity (U) [Rel density] 1.015 [facility] Other Urobilinogen (U) [Mass/Vol] 0.2 mg/dL [facility] Other Urinalysis - DIPSTICK [facility] [employer] Other Urine Cultureon 02-08-2023 Bacteria identified Cx Nom (U) <9,000 colonies/ml mixed bacterial skin contaminants 2 Days PERFORMED BY: [place] [address] PATHOLOGIST INSPECTOR HAIRSPRING ISAIAS BAHENA M.D. [facility] Comment on above: Performed By: #### C UU #### [address] Bacteria identified Cx Nom (U) [employer] [facility] Other Alanine aminotransferase [En zymatic activity/volume] in Serum or PlasmaOrdered By: OUTREACH COMMUNITY on 01-15-2023 ALT [Catalytic activity/Vol] 11 U/L 7-52 [facility] Albumin [Mass/volume] in Ser um or Plasma by Bromocresol green (BCG) dye binding methoOrdered By: OUTREACH COMMUNITY on 01-15-2023 Albumin BCG dye [Mass/Vol] 4.2 g/dL 3.5-5.7 [facility] Alkaline phosphatase [Enzyma tic activity/volume] in Serum or PlasmaOrdered By: OUTREACH COMMUNITY on 01-15-2023 ALP [Catalytic activity/Vol] 35 U/L 34-104 [facility] Aspartate aminotransferase [ Enzymatic activity/volume] in Serum or PlasmaOrdered By: OUTREACH COMMUNITY on 01-15-2023 AST [Catalytic activity/Vol] 28 U/L 13-39 [facility] Bilirubin.total [Mass/volume ] in Serum or PlasmaOrdered By: OUTREACH COMMUNITY on 01-15-2023 Bilirubin [Mass/Vol] 0.4 mg/dL 0.3-1.0 [facility] CBC Without Differentialon 0 01-15-2023 Erythrocyte distribution width (RBC) [Ratio] 13.2 % Normal 11.9-15.3 [facility] Comment on above: Performed By: #### O UTREACH CMP, OUTREACH LIPID, CBCNOOUTREACH #### [address] Hematocrit (Bld) [Volume fraction] 34.7 % Normal 34.0-46.4 [facility] Comment on above: Performed By: #### O UTREACH CMP, OUTREACH LIPID, CBCNOOUTREACH #### [address] Hemoglobin (Bld) [Mass/Vol] 11.5 g/dL Low 11.8-15.4 [facility] Comment on above: Performed By: #### O UTREACH CMP, OUTREACH LIPID, CBCNOOUTREACH #### [address] MCH (RBC) [Entitic mass] 32.2 pg Normal 24.7-34.3 [facility] Comment on above: Performed By: #### O UTREACH CMP, OUTREACH LIPID, CBCNOOUTREACH #### [facility] [address] [place] [address] MCV (RBC) [Entitic vol] 97.2 fL Normal 80-100 [facility] Comment on above: Performed By: #### O UTREACH CMP, OUTREACH LIPID, CBCNOOUTREACH #### [facility] [address] [place] [address] Mean Corpuscular HGB Conc 33.1 g/dL Normal 32.0-35.0 [facility] Comment on above: Performed By: #### O UTREACH CMP, OUTREACH LIPID, CBCNOOUTREACH #### [address] Platelet mean volume (Bld) [Entitic vol] 7.9 fL Normal 6.3-10.7 [facility] Comment on above: Result Comment: PERF ORMED BY: [place] [address] PATHOLOGIST INSPECTOR HAIRSPRING ISAIAS BAHENA M.D. Performed By: #### O UTREACH CMP, OUTREACH LIPID, CBCNOOUTREACH #### [address] Platelets (Bld) [#/Vol] 319 10*3/uL Normal 150-450 [facility] Comment on above: Performed By: #### O UTREACH CMP, OUTREACH LIPID, CBCNOOUTREACH #### [address] RBC (Bld) [#/Vol] 3.56 10*6/uL Low 3.60-5.00 [facility] Comment on above: Performed By: #### O UTREACH CMP, OUTREACH LIPID, CBCNOOUTREACH #### [address] WBC (Bld) [#/Vol] 9.3 10*3/uL Normal 3.8-11.6 [facility] Comment on above: Performed By: #### O UTREACH CMP, OUTREACH LIPID, CBCNOOUTREACH #### [facility] [address] [place] [address] CMP Outreachon 01-15-2023 Albumin [Mass/Vol] 4.2 g/dL Normal 3.5-5.7 [facility] Comment on above: Performed By: #### O UTREACH CMP, OUTREACH LIPID, CBCNOOUTREACH #### [address] ALP [Catalytic activity/Vol] 35 U/L Normal 34-104 [facility] Comment on above: Performed By: #### O UTREACH CMP, OUTREACH LIPID, CBCNOOUTREACH #### [address] ALT [Catalytic activity/Vol] 11 U/L Normal 7-52 [facility] Comment on above: Performed By: #### O UTREACH CMP, OUTREACH LIPID, CBCNOOUTREACH #### [facility] [address] [place] [address] [place] Anion gap [Moles/Vol] 12.5 mmol/L Normal 6.0-15.0 [facility] Comment on above: Performed By: #### O UTREACH CMP, OUTREACH LIPID, CBCNOOUTREACH #### [facility] [address] AST [Catalytic activity/Vol] 28 U/L Normal 13-39 [facility] Comment on above: Performed By: #### O UTREACH CMP, OUTREACH LIPID, CBCNOOUTREACH #### [facility] [address] [place] [address] [place] Bilirubin [Mass/Vol] 0.4 mg/dL Normal 0.3-1.0 [facility] Comment on above: Performed By: #### O UTREACH CMP, OUTREACH LIPID, CBCNOOUTREACH #### [facility] [address] [place] [address] [place] Calcium [Mass/Vol] 9.9 mg/dL Normal 8.6-10.3 [facility] Comment on above: Performed By: #### O UTREACH CMP, OUTREACH LIPID, CBCNOOUTREACH #### [facility] [address] [place] [address] [place] Chloride [Moles/Vol] 104 mmol/L Normal 98-107 [facility] Comment on above: Performed By: #### O UTREACH CMP, OUTREACH LIPID, CBCNOOUTREACH #### [facility] [address] [place] [address] [place] CO2 [Moles/Vol] 26.8 mmol/L Normal 21.0-31.0 [facility] Comment on above: Performed By: #### O UTREACH CMP, OUTREACH LIPID, CBCNOOUTREACH #### [facility] [address] [place] [address] [place] Creatinine [Mass/Vol] 0.76 mg/dL Normal 0.60-1.20 [facility] Comment on above: Performed By: #### O UTREACH CMP, OUTREACH LIPID, CBCNOOUTREACH #### [facility] [address] [place] [address] [place] GFR/1.73 sq M.predicted MDRD (S/P/Bld) [Vol rate/Area] mL/min/{1.73_m2} Normal [facility] Comment on above: Performed By: #### O UTREACH CMP, OUTREACH LIPID, CBCNOOUTREACH #### [facility] [address] [place] [address] [place] Glucose [Mass/Vol] 102 mg/dL High 70-100 [facility] Comment on above: Result Comment: [facility] Glucose Reference Range is dependent on time and content of last meal. Glucose of more than 200 mg/dL in a nonstressed, ambulatory subject supports the diagnosis of Diabetes Mellitus. ADA recommended reference range Performed By: #### O UTREACH CMP, OUTREACH LIPID, CBCNOOUTREACH #### [facility] [address] [place] [address] [place] Potassium [Moles/Vol] 4.3 mmol/L Normal 3.5-5.1 [facility] Comment on above: Performed By: #### O UTREACH CMP, OUTREACH LIPID, CBCNOOUTREACH #### [facility] [address] [place] [address] [place] Protein [Mass/Vol] 6.6 g/dL Normal 6.4-8.9 [facility] Comment on above: Performed By: #### O UTREACH CMP, OUTREACH LIPID, CBCNOOUTREACH #### [facility] [address] [place] [id number] [place] Sodium [Moles/Vol] 139 mmol/L Normal 136-145 [facility] Comment on above: Performed By: #### O UTREACH CMP, OUTREACH LIPID, CBCNOOUTREACH #### [facility] [address] [place] [id number] [place] Urea nitrogen [Mass/Vol] 28 mg/dL High 7-25 [facility] Comment on above: Performed By: #### [facility], CBCNOOUTREACH #### [facility] [address] Calcium [Mass/volume] in Ser um or PlasmaOrdered By: OUTREACH COMMUNITY on 01-15-2023 Calcium [Mass/Vol] 9.9 mg/dL 8.6-10.3 [facility] Carbon dioxide, total [Moles /volume] in Serum or PlasmaOrdered By: OUTREACH COMMUNITY on 01-15-2023 CO2 [Moles/Vol] 26.8 mmol/L 21.0-31.0 [facility] Chloride [Moles/volume] in S zachary or PlasmaOrdered By: OUTREACH COMMUNITY on 01-15-2023 Chloride [Moles/Vol] 104 mmol/L 98-107 [facility] Cholesterol [Mass/volume] in Serum or PlasmaOrdered By: OUTREACH COMMUNITY on 01-15-2023 Cholesterol [Mass/Vol] 211 mg/dL 140-200 [facility] Comment on above: Chol less than 200 m g/dl low riskChol 201-239 mg/dl borderline riskChol 240 mg/dl and greater high risk Cholesterol in LDL Calc [Mas s/Vol]Ordered By: OUTREACH COMMUNITY on 01-15-2023 Cholesterol in LDL [Mass/Vol] 121 mg/dL 0-100 [facility] Comment on above: LDL ATP III CLASSIFI CATIONLDL less than 100 mg/dL OptimalLDL 100-129 mg/dL Near or above optimalLDL 130-159 mg/dL Borderline highLDL 160-189 mg/dL HighLDL greater than 189 mg/dL Very high Cholesterol in VLDL Calc [Ma ss/Vol]Ordered By: OUTREACH COMMUNITY on 01-15-2023 Cholesterol in VLDL [Mass/Vol] 11 mg/dL [facility] Creatinine [Mass/volume] in Serum or PlasmaOrdered By: OUTREACH COMMUNITY on 01-15-2023 Creatinine [Mass/Vol] 0.76 mg/dL 0.60-1.20 [facility] Erythrocyte distribution wid th Auto (RBC) [Ratio]Ordered By: OUTREACH COMMUNITY on 01-15-2023 Erythrocyte distribution width (RBC) [Ratio] 13.2 % 11.9-15.3 [facility] Glucose [Mass/volume] in Ser um or PlasmaOrdered By: [facility] on 01-15-2023 Glucose [Mass/Vol] 102 mg/dL 70-100 [facility] Comment on above: ADA recommended refe rence rangeRandom Glucose Reference Range is dependent on time and content of last meal. Glucose of more than 200 mg/dL in a nonstressed, ambulatory subject supports the diagnosis of Diabetes Mellitus. Hematocrit Auto (Bld) [Volum e fraction]Ordered By: [facility] on 01-15-2023 Hematocrit (Bld) [Volume fraction] 34.7 % 34.0-46.4 [facility] Hemoglobin [Mass/volume] in BloodOrdered By: [facility] on 01-15-2023 Hemoglobin (Bld) [Mass/Vol] 11.5 g/dL 11.8-15.4 [facility] Leukocytes [#/volume] correc glenda for nucleated erythrocytes in Blood by Automated counOrdered By: [facility] on 01-15-2023 WBC corrected for nucl RBC Auto (Bld) [#/Vol] 9.3 10*3/uL 3.8-11.6 [facility] Lipid Profile Outreach Cholesterol [Mass/Vol] 211 mg/dL High 140-200 [facility] Comment on above: Result Comment: Chol less than 200 mg/dl low risk Chol 201-239 mg/dl borderline risk Chol 240 mg/dl and greater high risk Performed By: #### O RYLEE [facility], OUTREACH LIPID, CBCNOOUTREACH #### [facility] [address] [place] [id number] [place] Cholesterol in HDL [Mass/Vol] 78 mg/dL Normal 23-92 [facility] Comment on above: Result Comment: HDL CHOL ATP-III CLASSIFICATION Cardiovascular Risk HDL > or equal to 60 mg/dL LOW HDL < 40 mg/dL HIGH Performed By: #### O RYLEE [facility], OUTREACH LIPID, CBCNOOUTREACH #### [facility] [address] [place] [id number] [facility] Cholesterol.total/Chol esterol in HDL [Mass ratio] 2.7 {ratio} Normal <5.0 [facility] Comment on above: Result Comment: PERF ORMED BY: [place] [address] PATHOLOGIST INSPECTOR HAIRSPRING ISAIAS BAHENA M.D. Performed By: #### O UTRLANNYCH CMP, OUTREACH LIPID, CBCNOOUTREACH #### [address] LDL Cholesterol,Calculated 121 mg/dL High 0-100 [facility] Comment on above: Result Comment: LDL ATP III CLASSIFICATION LDL less than 100 mg/dL Optimal LDL 100-129 mg/dL Near or above optimal LDL 130-159 mg/dL Borderline high LDL 160-189 mg/dL High LDL greater than 189 mg/dL Very high Performed By: #### O UTREACH CMP, OUTREACH LIPID, CBCNOOUTREACH #### [facility] [address] [place] [address] Triglyceride w/Reflex 59 mg/dL Normal 0-149 [facility] Comment on above: Result Comment: TRIG ATP III CLASSIFICATION TRIG less than 150 mg/dL Normal TRIG 150-199 mg/dL Borderline high TRIG 200-500 mg/dL High TRIG greater than 500 mg/dL Very high Standard traceable to the Center for Disease Conrtrol and Prevention (CDC) test method. Performed By: #### O UTRLANNYCH CMP, OUTREACH LIPID, CBCNOOUTREACH #### [facility] [address] [place] [address] VLDL CHOLESTEROL 11 mg/dL Normal [facility] Comment on above: Performed By: #### O UTREACH CMP, OUTREACH LIPID, CBCNOOUTREACH #### [facility] [address] [place] [address] MCH Auto (RBC) [Entitic mass ]Ordered By: OUTREACH COMMUNITY on 01-15-2023 MCH (RBC) [Entitic mass] 32.2 pg 24.7-34.3 [facility] MCHC Auto (RBC) [Mass/Vol]Or dered By: OUTREACH COMMUNITY on 01-15-2023 MCHC (RBC) [Mass/Vol] 33.1 g/dL 32.0-35.0 [facility] MCV Auto (RBC) [Entitic vol] Ordered By: OUTREACH COMMUNITY on 01-15-2023 MCV (RBC) [Entitic vol] 97.2 fL 80-100 [facility] No Panel InformationOrdered By: OUTREACH [facility] on 01-15-2023 Estimated GFR (CKD-EPI) > 60.0 mL/Min [facility] Creatinine Clearance (Chem N/A [facility] Platelet mean volume Auto (B ld) [Entitic vol]Ordered By: [facility] on 01-15-2023 Platelet mean volume (Bld) [Entitic vol] 7.9 fL 6.3-10.7 [facility] Platelets Auto (Bld) [#/Vol] Ordered By: [facility] on 01-15-2023 Platelets (Bld) [#/Vol] 319 10*3/uL 150-450 [facility] Potassium [Moles/volume] in Serum or PlasmaOrdered By: [facility] on 01-15-2023 Potassium [Moles/Vol] 4.3 mmol/L 3.5-5.1 [facility] Protein [Mass/volume] in Ser um or PlasmaOrdered By: [facility] on 01-15-2023 Protein [Mass/Vol] 6.6 g/dL 6.4-8.9 [facility] RBC Auto (Bld) [#/Vol]Ordere d By: [facility] on 01-15-2023 RBC (Bld) [#/Vol] 3.56 10*6/uL 3.60-5.00 [facility] Serum or plasma anion gap de terminationOrdered By: [facility] on 01-15-2023 Anion gap [Moles/Vol] 12.5 mmol/L 6.0-15.0 [facility] Serum or plasma high density lipoprotein (HDL) cholesterol measurementOrdered By: [facility] on 01-15-2023 Cholesterol in HDL [Mass/Vol] 78 mg/dL 23-92 [facility] Comment on above: HDL CHOL ATP-III CLA SSIFICATION Cardiovascular RiskHDL > or equal to 60 mg/dL LOWHDL < 40 mg/dL HIGH Serum or plasma total choles terol/high density lipoprotein (HDL) cholesterol mass ratOrdered By: [facility] on 01-15-2023 Cholesterol.total/Chol esterol in HDL [Mass ratio] 2.7 {ratio} <5.0 [facility] Sodium [Moles/volume] in Ser um or PlasmaOrdered By: OUTREACH COMMUNITY on 01-15-2023 Sodium [Moles/Vol] 139 mmol/L 136-145 [facility] Triglyceride [Mass/volume] i n Serum or PlasmaOrdered By: OUTREACH COMMUNITY on 01-15-2023 Triglyceride [Mass/Vol] 59 mg/dL 0-149 [facility] Comment on above: TRIG ATP III CLASSIF ICATIONTRIG less than 150 mg/dL NormalTRIG 150-199 mg/dL Borderline highTRIG 200-500 mg/dL High TRIG greater than 500 mg/dL Very highStandard traceable to the Center for Disease Conrtrol and Prevention (CDC) test method. Urea nitrogen [Mass/volume] in Serum or PlasmaOrdered By: [employer]REACH COMMUNITY on 01-15-2023 Urea nitrogen [Mass/Vol] 28 mg/dL 7-25 [facility] A1C with Estimated Average G luon 10-01-2022 Glucose [Mass/Vol] 117 mg/dL Normal [facility] Comment on above: Result Comment: PERF ORMED BY: [place] [address] PATHOLOGIST INSPECTOR HAIRSPRING ISAIAS BAHENA M.D. Performed By: #### A 1C WT eA #### [address] HbA1c (Bld) [Mass fraction] 5.7 % High 4.3-5.6 [facility] Comment on above: Result Comment: Incr eased risk for diabetes: 5.7 - 6.4 diabetes: >6.4 glycemic control for adults with diabetes: <7.0 Performed By: #### A 1C WT eA #### [facility] [address] [place] [address] XR lumbar spine min 4V*on XR lumbar spine min 4V* [facility] [address] XRay Report Signed Patient: Dacia Sprague MR#: [id number] : 1940 Acct:[id number] Age/Sex: 82 / F ADM Date: 10/01/22 Loc: XD Room: Type: [facility] Attending Dr: Ankit Resendiz MD Copies to: Ankit Resendiz MD Ordering Provider: Ankit Resendiz MD Date of Service: 10/01/22 XR/XR lumbar spine min 4V*: - LUMBAR SPINE - 6 views: CLINICAL HISTORY: Chronic worsening low back pain, greater on the right. No injury. COMPARISON: None AP, lateral, both oblique and AP and lateral coned-down views of the lumbosacral junction were obtained. There is prominent rotatory lumbar levoscoliosis. There is right lateral translation of L1 on L2 and left lateral translation of L4 on L5. There is approximately 6 mm of anterolisthesis of L4 and L5. There is multilevel disc space narrowing, greater toward the right proximally and toward the left distally. There is mild endplate spurring. There is also mid and lower lumbar facet disease. No pars defect is identified. The sacroiliac joints are maintained and show mild sclerosis. There is atherosclerotic plaque involving the aorta. There are no paraspinal soft tissue abnormalities. XR/XR lumbar spine min 4V* IMPRESSION: PROMINENT SCOLIOSIS. DEGENERATIVE CHANGES, DESCRIBED. Impression dictated by: Yaneli Neely M.D.10/01/2022 3:36 PM Dictation Location: [place] [address] Transcribed By: [facility] 10/01/22 153 Dictated By: Yaneli Neely MD 10/01/22 153 Signed By: 10/01/22 153 Normal [facility] A1C with Estimated Average G milisoila 04-12-2022 Glucose [Mass/Vol] 117 mg/dL Normal [facility] Comment on above: Result Comment: PERF ORMED BY: [place] [address] PATHOLOGIST INSPECTOR HAIRSPRING ISAIAS BAHENA M.D. Performed By: #### A 1C [facility] #### [address] HbA1c (Bld) [Mass fraction] 5.7 % High 4.3-5.6 [facility] Comment on above: Result Comment: Incr eased risk for diabetes: 5.7 - 6.4 diabetes: >6.4 glycemic control for adults with diabetes: <7.0 Performed By: #### A 1C [facility] #### [facility] [address] MG MAMM SCREEN 3D GISELA CADon 05-28-2021 MG MAMM SCREEN 3D GISELA CAD Patient: DACIA SPRAGUE Exam Date: 05/28/2021 : 1940 Gender:F Ordering : DR DANAE GRANT M.D. Admission #: [id number] Family : Order #: [id number] CLICK HERE TO VIEW EXAM RADIOLOGY REPORT PROCEDURE: MAMMOGRAM SCREENING 3D BILATERAL CAD COMPARISON: MG MAMM SCREEN GISELA W CAD, 05/03/2019. MG MAMM SCREEN GISELA W CAD, 02/06/2018. INDICATIONS: Screening mammography Calculator Name NCI Breast Cancer Risk Assessment Tool 5 Year Breast Cancer Risk 1.90% Lifetime Breast Cancer Risk 2.70% Personal Breast Cancer No Personal Ovarian Cancer No Treatments None Family Cancers Aunt-maternal with breast cancer at age 65; Daughter with leukemia cancer at age 25. LOCATION: [facility] BREAST COMPOSITION: Heterogeneously dense,which may obscure small masses. FINDINGS: DIAGNOSTIC CATEGORY 1--NEGATIVE. NO CHANGE FROM COMPARISON ASSESSMENT. Tomographic images not obtained in the CC projection due to patient stability and inability to turn her head. Scattered benign-appearing calcifications are present. RIGHT BREAST: No significant suspicious finding. LEFT BREAST: No significant suspicious finding. RECOMMENDATIONS: ROUTINE MAMMOGRAM AND CLINICAL EVALUATION IN 12 MONTHS. PLEASE NOTE: A NORMAL MAMMOGRAM DOES NOT EXCLUDE THE POSSIBILITY OF BREAST CANCER. A CLINICALLY SUSPICIOUS PALPABLE LUMP SHOULD BE BIOPSIED. Dictated by: Ping Anand MD on 05/29/2021 at 07:23 Approved by: Ping Anand MD on 05/29/2021 at 07:25 Normal [facility] XR DEXA BONE DENSITYon 05-28 XR DEXA BONE DENSITY EXAMINATION: XR DEX A BONE DENSITY, 05/28/2021 1:41 PM EST HISTORY: Bone density finding COMPARISON: DEXA bone densitometry 11/11/2017 TECHNIQUE: Dual-energy X-ray absorptiometry (DEXA) bone density study performed for the axial skeleton. FINDINGS: FOREARM ANALYSIS: Average bone mineral density is 0.694 g/cm2. T-score (standard deviation relative to young adult mean): -0.3 . -6.7% change since prior study. HIP ANALYSIS: Lowest bone mineral density is within the left femoral trochanter, 0.750 g/cm2. T-score (standard deviation relative to young adult mean): -0.9 . +10.1% change since prior study. IMPRESSION: [employer] Classification: Normal - Low Fracture Risk Electronically authenticated by: MARKY BEAL Date: 2021-05-28 14:52 Normal [facility] Initial Visit (Orthopaedic S urgery)on 10-26-2019 Initial Visit (Orthopaedic Surgery) Chief Complaint New patient visit for scoliosis of lumbar spine. -MM History of Present Illnessretirend [facility]. Seen at the request of self for another opinion about low back pain in the setting of scoliosis. Patient complains of low back pain present since about 2015, but worsening for the past 8 or 9 months since late 2018. She has no significant injury, but notices that she is shuffling her feet and walking more slowly. Pain is localized mainly over the left buttock she calls her hip, but also feels some pinching poking type pain over the right side of the pelvis. She has been evaluated by 2 neurologists, PMANDR,, and pain management for epidural injection without relief Patient reports no fevers, chills, sweats, night pain, weight loss or cancer history no bowel or bladder disturbance. Pertinent Physical Exam (see remainder below): MSK: She has a marketed right lumbar scoliosis and is unable to get upright to neutral in the coronal plane, and also has a mildly positive sagittal balance and extends only to 0 degrees, but is really unable to provoke any of her severe pain with spinal motion or prolonged positioning and weightbearing. She was getting the right-sided rib pinching when I loaded her lower ribs against her right iliac crest. Kody test was positive on left for sacral region pain, and the left SI joint was more tender than the right. Pelvis otherwise level, straight leg raise negative Neuro: Normal strength, bulk and tone of lower limbs bilaterally , Reflexes absent in lower extremities sensation intact IMPRESSION: Lumbar scoliosis, probably progressive, but pain seems more mechanical, likely left sacroiliitis possibly left L5 facet pain with radiation RECOMMENDATIONS: -New lumbar x-rays today were compared with once she brought in from outside hospital 2017 but she says these were not done in the weightbearing position. There appears to be approximately 40 degrees lumbar curve measured from the superior endplate of L1 and L5, and by gross comparison there is been progression since 2017 x-rays. I also reviewed lumbar MRI from 2017 with the report in HIE below, but it looks like there is only mild foraminal stenosis (reading has moderate Right L3 stenosis but this doesn't fit with her symptoms. -I will perform a left sacroiliac injection followed by possible left L4 and L5 facet medial branch blocks. This is basically picking up or Dr. Gonzalez left off his epidural injection and May which did not help -Continue Tylenol, restart ibuprofen or Aleve and alternate. She really does not want to take medications f/u 6-8 wk, consider repeat MRI lumbar or spine surgery consultation but she really does not want surgery at her age. I suppose we could do bone density testing if we are considering surgery okay diagnoses and plan discussed with the patient, patient educated on above diagnoses and treatments, including alternatives Anthony Bright MD, FAAPMR, R-MSK Chief, Division of PMANDR Board Certified in PMANDR and Sports Medicine SUPPORTING DOCUMENTATION (remaining history, exam, other findings): Work-up reviewed - this has included - MRI [facility] 2017 - L2-L3: Marked disc height reduction and moderate facet spondylosis without significant central canal or foraminal narrowing. L3-L4: Moderate right foraminal narrowing. Prominent posterior disc-osteophyte complex and marked disc height reduction. Moderate facet spondylosis bilaterally. L4-L5: Mild central canal and foraminal narrowing bilaterally. A diffuse disc bulging and moderate facet spondylosis bilaterally. Marked disc height reduction. L5-S1: Mild-moderate foraminal narrowing bilaterally at. No significant central canal narrowing. Mild diffuse disc bulging and mild disc height reduction. Moderate facet spondylosis bilaterally xray Treatment has included above, HORACIO May ?level - no help. Review of Systems: GENERAL:No weight loss, malaise or fevers., SEE HPI HEENT:Negative for frequent or significant headaches, No changes in hearing or vision, no nose bleeds or other nasal problems NECK:Negative for lumps, goiter, pain and significant neck swelling RESPIRATORY: Negative for cough, wheezing or shortness of breath. CARDIOVASCULAR: Negative for chest pain, leg swelling or palpitations. GASTROINTESTINAL: Negative for abdominal discomfort, blood in stools or black stools or change in bowel habits GENITOURINARY: No history of dysuria, frequency or incontinence MUSCULOSKELETAL: See HPI NEUROLOGIC:See HPI SKIN:Negative for lesions, rash, and itching. PSYCHIATRIC: Negative for sleep disturbance, mood disorder and recent psychosocial stressors.[] HEM Normal [facility] Operative Reporton Operative Report Date of Surgery: 05/16/2018SURGEON: Maximilian Grover D.O.PREOPERATIVE DIAGNOSIS: Nuclear sclerotic cataract, right eyePOSTOPERATIVE DIAGNOSIS: Nuclear sclerotic cataract, right eyeOPERATION: Cataract extraction with intraocular lens placement, right eyeANESTHESIA: TopicalCOMPLICATIONS: NoneESTIMATED BLOOD LOSS: ZeroPROCEDURE: The patient was brought to the Operating Room in the supineposition. After proper identification, the right eye was prepped anddraped in a sterile ophthalmic fashion. Two drops of Tetracaine wereplaced into the eye and a paracentesis was created at the two oclockposition. Approximately 0.1 cc of unpreserved Xylocaine was injected intothe anterior chamber and this was followed by Amvisc Plus. Using a 2.6 mmkeratome blade, a clear corneal incision was created at the twelve oclocklimbus. A cystotome was fashioned out of a 25 gauge needle and acurvilinear capsulorrhexis was begun and continued for 360 degrees withUtrata forceps. Balanced Salt Solution on a cannula was injected under theanterior capsule to hydrodissect as well as hydrodelineate the lens. Afterensuring mobility with a second handpiece, phacoemulsification wasperformed in a conquer and divide type fashion. After all nuclear materialhad been removed from the eye, IA was introduced into the anterior chamberand all residual cortical material was cleaned up. Additional Amvisc Pluswas injected into the posterior bag and a lens Model MX60 24.0 diopters wasinjected into the posterior bag as well. This was dialed into positionwith a secondhand piece and centered. After ensuring centration, IA wasreintroduced into the anterior chamber and all residual Amvisc Plus wasremoved from the eye. Balanced Salt Solution on a cannula was injectedinto the stroma of the clear corneal incision as well as the paracentesisto hydrate the wounds. Additional Balanced Salt Solution was injected intothe anterior chamber to pressurize the eye to approximately 20-22 mmHg byfinger tension. Weck-krishna sponges were then utilized to check the wounds sheri watertight. One drop of Iopidine, one drop of prednisolone acetate andone drop of Ocuflox were placed into the eye and a shield was placed overtop. The patient was sent to the Postoperative Area in satisfactorycondition to follow up the following day for postoperative care.Maximilian Grover D.O.glsDictated: 05/16/2018 #[id number]: 05/17/2018 #[id number]: Maximilian Grover D.O. [facility] Comment on above: Result Comment: Elec tronically Signed By: Maximilian Grover DO\.br\Date and Time Signed: 06/02/18 11:27 EST Coding Summary.on 05-17-2018 Coding Summary. CODING DATE: 018 FINAL [facility] STATUS: Home (Routine DC) PAYOR: Medicare APC DESCRIPTION 5491 Level 1 Intraocular Procedures ADMIT DX: REASON FOR VISIT DX: H25.11 Age-related nuclear cataract, right eye FINAL DX: PRINCIPAL: H25.11 Age-related nuclear cataract, right eye SECONDARY: H25.011 Cortical age-related cataract, right eye Z98.42 Cataract extraction status, left eye Z96.1 Presence of intraocular lens PYMT PROC APC STAT DESCRIPTION DOCTOR NAME DATE 08926 5491 J1 Extracapsular cataract Maximilian Grover DO 05/16/2018 removal with insertion of intraocular lens prosthesis (1 stage procedure), manual or mechanical technique (eg, irrigation and aspiration or phacoemulsification) RT Right side (used to identify procedures performed on the right side of the body) NOTE: The code number assigned matches the documented diagnosis and / or procedure in the patient's chart. However, the narrative phrase printed from the coding software may appear abbreviated, or result in slightly different terminology. Coded By: Linda Schaefer Date Saved: 05/17/2018 11:16 am Normal [facility] History and Physicalon 05-16 History and Physical HOSPITAL REGULATION S: ALL Positive Important Negative Findings Shall BeRecordedDATE ADMITTED: 05/16/2018HISTORY: The patient is a 77-year-old white female presenting complainingof a steady decline in visual acuity of her right eye. The gradual onsetof this has been slow over the prior several years, however more noticeableover the last year. She states having difficulty seeing the television andthe scrolling on the bottom of it. She states having difficulty atnighttime while driving with road signs at a distance as well as headlightcreating glare. Finally, she states having difficulty while reading.PAST OCULAR HISTORY: Status post cataract extraction with intraocular lensplacement to the left eye.PAST MEDICAL HISTORY: Scoliosis.PSYCHOSOCIAL HISTORY: Denies tobacco, alcohol or recreational drug abuse.SYSTEMIC MEDICATIONS: Denies.ALLERGIES: Denies.REVIEW OF SYSTEMS: No pertinent positives.PHYSICAL EXAMINATION:VITAL SIGNS: Blood pressure measured at 161/84 with a respiration rate of12 and pulse of 67.GENERAL: She is awake, alert and oriented x3, well developed, wellnourished. No acute distress.HEART: Regular rate and rhythm.LUNGS: Clear bilaterally.ABDOMEN: Soft, nontender, nondistended.EXTREMITIE S: No pitting edema.EYES: Ophthalmic examination revealed a visual acuity of 20/50 -2 in theright eye and 20/60 -1 in the left eye. Pupils, motility, muscle balance,confrontation to visual gorman are within normal limits bilaterally.Pressures are measured at 16 bilaterally. Slit-lamp examination revealedblepharitis with a severe decrease in tear film bilaterally. Conjunctivae,cornea, anterior chamber and iris are within normal limits bilaterally.Lens status demonstrated 3+ nuclear sclerosis with 1+ cortical changes inthe right eye and a well-centered posterior chamber intraocular lens in theleft eye. Fundus examination revealed a good view with good dilationbilaterally. Optic discs, macula, vessels, periphery and vitreous withinnormal limits bilaterally.ASSESSMENT AND PLAN: Visually significant cataract, right eye. Afterrisks, benefits, alternatives as well as expectations were delivered to thepatient, she elected to go forward with cataract removal. She understandsthose risks to include but are not limited to infection, bleeding, loss ofvision or loss of the eye itself. Secondly, she understands thatpostoperatively she is likely to require spectacle correction for her bestvisual acuity. Finally, a complete ophthalmic examination was performedand there was not determined to be any other source of vision decline otherthan that of the cataract. After understanding all risks as well asexpectations, she elected to go forward with the procedure as listed aboveand will be doing so in the near future.Maximilian Grover D.O.glsDictated: 05/15/2018 #[id number] 05/16/2018 #[id number]: Maximilian Grover D.O. [facility] Comment on above: Result Comment: Elec tronically Signed By: Maximilian Grover DO\.br\Date and Time Signed: 05/16/18 07:20 EST Inpatient Patient Summaryon 05-16-2018 [facility] Name: DACIA SPRAGUE [facility] Admitting Physician: Maximilian Grover DOAttending Physician: Maximilian Grover DO PCP: Narda GRANT MD Diagnosis: Cataract Comment: PATIENT EDUCATION INFORMATIONInstructions :REILLY- After Surgery Eye (Custom)Medication Leaflets:Follow up:With: Address: When: Maximilian Grover [facility] [address], [place] [phone] Business (1) Within 1 to 2 days MEDICATION LISTComment: [facility] Main OR Intraoperative Recor don 05-16-2018 Main OR Intraoperative Record IntraOp Document Type FT Summary Primary Physician: Maximilian Grover DO Finalized Date/Time: 05/16/18 14:53:37 Pt. Name: DACIA SPRAGUE D.O.B./Sex: 1940 Female Med Rec #: [id number] Physician: Maximilian Grover DO Financial #: [id number] Pt. 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 Case Attendance FT Entry 1 Entry 2 Entry 3 Case Attendee Reilly CROSS, aMximilian Blount RN, Jorgito Clay RN, Kadi Aguilar Role Performed Surgeon - Primary Tape Edge Machine Operator - Primary Tape Edge Machine Operator - Primary Time In 05/16/18 08:56:00 05/16/18 08:51:00 05/16/18 08:51:00 Time Out 05/16/18 09:13:00 05/16/18 09:13:00 05/16/18 09:13:00 Procedure CATARACT EXTRACTION W/ CATARACT EXTRACTION W/ CATARACT EXTRACTION W/ INTRAOCULAR LENS(Right) INTRAOCULAR LENS(Right) INTRAOCULAR LENS(Right) Comments Last Modified By: Jose Alejandro RN, Jorgito Blount RN, Jorgito Blount RNJorgito 05/16/18 09:13:05 05/16/18 09:13:05 05/16/18 09:13:05 Entry 4 Entry 5 Case Attendee Al COOPER, Digna Cash CST, Mindy Role Performed Scrub - Primary Scrub - Other Time In 05/16/18 08:51:00 05/16/18 08:51:00 Time Out 05/16/18 09:13:00 05/16/18 09:13:00 Procedure CATARACT EXTRACTION W/ CATARACT EXTRACTION W/ INTRAOCULAR LENS(Right) INTRAOCULAR LENS(Right) Comments Last Modified By: Jose Alejandro AGUILLON, Jorgito Ryan RN 05/16/18 09:13:05 05/16/18 09:13:05 Perioperative Protocols FT Pre-Care Text: Implements protective measures prior to operative or invasive procedure, confirms identity before the operative or invasive procedure, verifies operative procedure, surgical site, and laterality Entry 1 Procedure(s) CATARACT EXTRACTION W/ Patient Identity Birthday, ID Band INTRAOCULAR LENS(Right) Verified (select at Check, Patient least 2): Participation Consents / H and P HandP, Surgery/Procedure Operative Site Present Verified Consent Marking Verified Surgical Site Yes Laterality Verified Yes Verified Procedure Verified Yes Correct Patient Yes Position Verified Availability Equipment, Implant, Prep Dry n/a Verified (If Medication Applicable) PreOp Antibiotic No Time Out Maximilian Grover DO, Given Participants Jorgito Blount RN, Crosby RN, Al Goodman CST, Shreya Lance CST, Mindy Time Out Complete 05/16/18 08:58:00 Outcomes Met? Yes Last Modified By: Jorgito Blount RN 05/16/18 09:00:25 Post-Care Text: The patient is free from signs and symptoms of injury caused by extraneous objects Allergy Information FT Pre-Care Text: Verifies allergies Entry 1 Allergies Reviewed? Yes Allergies Reviewed Self/Patient With Outcomes Met? Yes Last Modified By: Jorgito Blount RN 05/16/18 08:39:00 Post-Care Text: The patient received appropriate medication(s) safely administered during the perioperative period Surgical Procedures FT Entry 1 Procedure Description Procedure CATARACT EXTRACTION W/ Modifiers Right INTRAOCULAR LENS IMPLANTATION Surgeon Description CATARACT EXTRACTION RIGHT EYE WITH INTRAOCULAR LENS IMPLANTATION Primary Procedure Yes Primary Surgeon Maximilian Grover DO Start 05/16/18 09:00:00 Stop 05/16/18 09:11:00 Anesthesia Type Local Surgical Service Ophthalmology Wound Class 1 - Clean Last Modified By: Jorgito Blount RN 05/16/18 09:13:03 General Case Data FT Pre-Care Text: Classifies surgical wound, implements aseptic technique, initiates traffic control Entry 1 Case Information OR OR 3 FT Case Level Level 2 Wound Class 1 - Clean Specialty Ophthalmology Preop Diagnosis CATARACT RIGHT EYE Postop Same As Preop Yes Postop Diagnosis CATARACT RIGHT EYE Outcomes Met? Yes Last Modified By: Jorgito Blount RN 05/16/18 08:39:21 Post-Care Text: The patient is free from signs and symptoms of infection Skin Assessment (Pre Procedure) FT Pre-Care Text: Implements protective measures to prevent skin/ tissue injury due to thermal or mechanical sources Evaluates for signs and symptoms of physical injury to skin and tissue Entry 1 Skin Integrity Intact, Hannah, Warm, and Skin Abnormality No Dry Outcomes Met? Yes Last Modified By: Jorgito Blount RN 05/16/18 08:39:29 Post-Care Text: The patient is free from signs and symptoms of injury caused by extraneous objects Patient Positioning FT Pre-Care Text: Identifies physical alterations that require additional precautions for procedure-specific positioning, verifies presence of prosthetics or corrective devices, positions the patient, evaluates the patient for signs and symptoms of injury as a result of positioning Entry 1 Procedure CATARACT EXTRACTION W/ Additional folded towel under head INTRAOCULAR LENS(Right) Information Body Position Supine Feet Uncrossed? Yes Left Arm Position Resting at Side Right Arm Position Resting at Side Left Leg Position Extended Right Leg Position Extended Press Points Checked Yes By Jorgito Blount RN Outcomes Met? Yes Last Modified By: Jorgito Blount RN 05/16/18 08:39:53 Post-Care Text: The patient is free from signs and symptoms of injury related to positioning General Comments: EYE CART WHEELS LOCKED FOR PROCEDURE. Patient Care Devices FT Pre-Care Text: Implements protective measures to prevent skin/ tissue injury due to thermal or mechanical sources Entry 1 Entry 2 Entry 3 Equipment Type MICROSCOPE EYE[F] MONITOR CHARGE SURGERY PHACO UNIT[F] [F] Equipment Number Equipment Setting Outcomes Met? Yes Yes Yes Last Modified By: Jorgito Blount RN, RN, Andrea L Krupp RN, Andrea L 05/16/18 08:40:11 05/16/18 08:40:11 05/16/18 08:40:11 Post-Care Text: The patient is free from signs and symptoms of injury caused by extraneous objects Transport To OR FT Pre-Care Text: Transports according to individual needs. Evaluates for signs and symptoms of skin and tissue injury as a result of transfer or transport Entry 1 Via Cart By Jorgito Blount RN Safety Precautions Side Rails Up Outcomes Met? Yes Last Modified By: Jorgito Blount RN 05/16/18 08:40:22 Post-Care Text: The patient is free from signs and symptoms of injury related to transfer/transport Counts Verification FT Pre-Care Text: Performs required counts Entry 1 Entry 2 Procedure(s) CATARACT EXTRACTION W/ CATARACT EXTRACTION W/ INTRAOCULAR LENS(Right) INTRAOCULAR LENS(Right) Type Initial Final Items Instruments Instruments Status Correct Correct Time 05/16/18 08:54:00 05/16/18 09:11:00 By Digna Melendez CST Outcomes Met? Yes Yes Last Modified By: Jorgito Blount RN, RN, Andrea L 05/16/18 08:54:57 05/16/18 09:11:49 Post-Care Text: The patient is free from signs and symptoms of injury caused by extraneous objects Skin Prep FT Pre-Care Text: Performs skin preparations Entry 1 Procedure CATARACT EXTRACTION W/ Prep Area operative site- RIGHT INTRAOCULAR LENS(Right) EYE Prep Agents Saline Rinse, Betadine Scrub and Solution Hair Removal Methods Not Indicated By Kadi Clay RN Outcomes Met? Yes Last Modified By: Jorgito Blount RN 05/16/18 08:55:11 Post-Care Text: The patient is free from signs and symptoms of infection Departure From OR FT Pre-Care Text: Transports according to individual needs. Evaluates for signs and symptoms of skin and tissue injury as a result of transfer or transport. Entry 1 Via Cart Safety Precautions Side Rails Up PostOp Destination Pre Surgery/ASU Transported By Jorgito Blount RN Patient Status Stable Skin. Condition Intact, Hannah, Warm, and Dry Airway Maintenance Oxygen in Use? No Airway Device N/A Outcomes Met? Yes Last Modified By: Jorgito Blount RN 05/16/18 09:00:05 Post-Care Text: The patient is free from signs and symptoms of injury related to transfer/transport General Comments: OR TRANSPORTER TO TAKE PATIENT BACK TO ASU UNIT AFTER SURGICAL PROCEDURE. Dressing/Packing FT Pre-Care Text: Administers care to wound sites Entry 1 Type Dressing Site and Details RIGHT EYE- PLASTIC EYE SHIELD AND PAPER TAPE Outcomes Met? Yes Last Modified By: Jorgito Blount RN 05/16/18 09:02:22 Post-Care Text: The patient is free from signs and symptoms of infection Medication Administration FT Pre-Care Text: Verifies allergies, administers prescribed medications and solutions, administers prescribed antibiotic therapy and immunizing agents as ordered, evaluates response to medications Administers prescribed medications and solutions Entry 1 Route of Admin Intraocular Expiration Date Yes Verified Outcomes Met? Yes Last Modified By: Jorgito Blount RN 05/16/18 09:00:47 Post-Care Text: The patient received appropriate medication(s) safely administered during the perioperative period For Ricarda please see scanned medication reconcilliation form for medications used at the field during the procedure. Implant Log FT Pre-Care Text: Records devices implanted during the operative or invasive procedure Entry 1 Implant/Explant Implant Implant Identification Description YOVANI [id number] 12.50MM Serial Number [id number] 24.00 [[id number]] Lot Number [id number] [employer] Catalog ?# [id number] [F] Size 24.0 Expiration Date 04/28/20 Usage Data Implant Site RIGHT EYE Quantity 1 Reconstitution N/A Outcomes Met? Yes Method Last Modified By: Jorgito Blount RN 05/16/18 09:02:00 Post-Care Text: The patient is free from signs and symptoms of injury caused by extraneous objects Case Comments Finalized By: Blessing Stacy CST Document Signatures Signed By: Jorgito Blount RN 05/16/18 09:13 Blessing Stacy CST 05/16/18 14:53 Normal [facility] Main OR PACU II Recordon Main OR PACU II Record PACU Phase II Doc ument Type FT Summary Primary Physician: Maximilian Grover DO Finalized Date/Time: 05/16/18 10:30:32 Pt. Name: DACIA SPRAGUE Esequiel Santo/Sex: 1940 Female Med Rec #: [id number] Physician: Maximilian Grover DO Financial #: [id number] Pt. Type: A Room/Bed: [place] [address] Admit/Disch: 05/16/18 06:43:11 - Institution: Case Times PACU II FT Pre-Care Text: Identifies barriers to communication and implements measures to provide psychological support and determines knowledge level Develops individualized plan of care, and ensures continuity of care Maintains patient's dignity and privacy, and maintains patient confidentiality Identifies and reports philosophical, cultural, and spiritual beliefs and values Identifies individual values and wishes concerning care administers prescribed antibiotic therapy and immunizing agents as ordered, Evaluates postoperative tissue perfusion Implements thermoregulation measures, and monitors body temperature Evaluates postoperative respiratory status Evaluates postoperative cardiac status Evaluates postoperative neurological status Assesses pain control, collaborated in initiating patient-controlled analgesia and implements alternative methods of pain control Verifies allergies, administers prescribed medications and solutions, evaluates response to medications Entry 1 In PACU II 05/16/18 09:15:00 Discharge from PACU 05/16/18 09:50:00 II Outcomes Met? Yes Last Modified By: Shu Chung RN 05/16/18 10:30:29 Post-Care Text: The patient demonstrates knowledge of the expected response to the operative or invasive procedure The patient's care is consistent with the individualized perioperative plan of care The patient's right to privacy is maintained The patient's value system, lifestyle, ethnicity, and culture are considered, respected, and incorporated into the perioperative plan of care The patient participates in decisions affecting his or her perioperative plan of care. The patient is free from signs and symptoms of infection The patient has wound/tissue perfusion consistent with or improved from baseline levels established preoperatively The patient is at or returning to normothermia at the conclusion of the immediate postoperative period The patient's respiratory function is consistent with or improved from baseline levels established preoperatively The patient's cardiovascular status is consistent with or improved from baseline levels established preoperatively The patient's neurological status is consistent with or improved from baseline levels established preoperatively The patient demonstrates and/or reports adequate pain control throughout the perioperative period The patient received appropriate medication(s), safely administered during the perioperative period Finalized By: Shu Chung RN Document Signatures Signed By: Shu Chung RN 05/16/18 10:30 Normal [facility] Main OR Preoperative Recordo n 05-16-2018 Main OR Preoperative Record PreOp Document Type FT Summary Primary Physician: Maximilian Grover DO Finalized Date/Time: 05/16/18 08:54:03 Pt. Name: DACIA SPRAGUE/Sex: 1940 Female Med Rec #: [id number] Physician: Maximilian Grover DO Financial #: [id number] Pt. Type: A Room/Bed: Admit/Disch: 05/16/18 06:43:11 - Institution: Case Times PreOp FT Pre-Care Text: Verifies consent for planned procedure, identifies individual values and wishes concerning care, includes family members in perioperative teaching Entry 1 Patient Times. In Pre Surgery 05/16/18 07:00:00 Out Pre Surgery 05/16/18 08:41:00 Outcomes Met? Yes Last Modified By: Jorgito Blount RN 05/16/18 08:54:02 Post-Care Text: The patient participates in decisions affecting his or her perioperative plan of care Finalized By: Jorgito Blount RN Document Signatures Signed By: Jorgito Blount RN 05/16/18 08:54 Normal [facility] Main OR Preoperative Record Holding Area Document Type FT Summary Primary Physician: Maximilian Grover DO Finalized Date/Time: 05/16/18 07:10:50 Pt. Name: OLGA DACIA Valenzuela./Sex: 1940 Female Med Rec #: [id number] Physician: Maximilian Grover DO Financial #: [id number] Pt. Type: A Room/Bed: [place] [address] Admit/Disch: 05/16/18 06:43:11 - Institution: Case Times Holding FT Pre-Care Text: Verifies consent for planned procedure, identifies individual values and wishes concerning care, includes family members in perioperative teaching Secures patient's records' belongings, and valuables, maintains patient's dignity and privacy, and maintains patient confidentiality Entry 1 In Holding 05/16/18 07:00:00 Outcomes Met? Yes Last Modified By: Silvia Munoz RN 05/16/18 07:08:41 Post-Care Text: The patient participates in decisions affecting his or her perioperative plan of care The patient's right to privacy is maintained Surgery Checklist FT Entry 1 Patient Birthday, ID Band Procedure Surgical Consent, With Identification: Check, Patient Verification: Patient Participation NPO after Midnight: No Date/Time: 05/16/18 05:30:00 Personal Items: Cataract Lens Implant Complaints of Pain: No Operative Site Yes Marked By: CHRIS AGUILLON Marking: Does Patient Smoke No Patient states Yes Comment - Adult VABIHAV-SPOUSE postop adult Supervision supervision available Case Cancelled in No Holding Area see comments below for reason Last Modified By: Silvia Munoz RN 05/16/18 07:10:46 Finalized By: Frasher RN, Silvia Document Signatures Signed By: Silvia Munoz RN 05/16/18 07:10 Normal [facility] Patient Education - Texton 1 07-17-2017 Patient Education - Text [facility] GroverAFTER SURGERY [right eye] [left eye] RESTRICTIONS FOR SIX WEEKS:(1) No rubbing of eye.(2) Try not to sleep on stomach.(3) Wear eye shield at bedtime for 2 WEEKS.(4) Avoid circumstances which may result in trauma to the eye.(5) You may shower and/or bathe. To wash hair allow water to run down back of the head if possible. (6) For YOUR comfort, wear sunglasses in sunlight as needed.METHOD OF APPLYING EYE MEDICATION:(1) Look up.(2) Pull down lower lid. (NO PRESSURE ON EYE)(3) Apply one drop of medication inside the pocket of lower lid.ON THE DAY OF SURGERY:(1) Wear your shield until you get home and then it can be removed. Reapply the shield at bedtime or at any time you are sleeping.(2) PAIN: use Tylenol 325 mg. every 4 hours as needed. The eye may feel as if there is an eyelash in it. This scratchiness is normal.(3) Start your eye drops when you get home.Besivance ? apply to surgical eye, three more times today.Diclofenac ? apply to surgical eye, four more times today.Prednisolone Acetate ? apply to surgical eye, six times today. Normal [facility] Progress Note-Physicianon Protein mass conc Patient: DACIA SPRAGUE Age: 77 years Sex: Female : 1940 Associated Diagnoses: None Author: Maximilian Grover DO Postoperative Information Date/ Time: 05/16/18 09:14:00 Preoperative Diagnosis: Senile Cataract - OD . Postoperative Diagnosis: same . Procedure: Cataract Extraction with IOL placement - OD. Anesthesia Method: Local. Performed by: Maximilian Grover DO. Specimens Removed: none . Estimated Blood Loss: 0 ml. Complications: None. Normal [facility] Comment on above: Result Comment: Elec tronically Signed By: Maximilian Grover DO\.br\Date and Time Signed: 05/16/18 09:14 EST Vital Signs Date Time Vital Sign Value Performing Clinician Facility 04-11-2023 14:30-0500 Body height 149.86 cm Danae Grant Other [facility] Other 04-11-2023 14:30-0500 Body mass index (BMI) [Ratio] 21.89 kg/m2 Danae Grant Other [facility] Other 04-11-2023 14:30-0500 Body weight 49.17 kg Danae Grant Other [facility] Other 04-11-2023 14:30-0500 Diastolic blood pressure 68 mm[Hg] Danae Grant Other [facility] Other 04-11-2023 14:30-0500 Systolic blood pressure 142 mm[Hg] Danae Grant Other [facility] Other 02-08-2023 15:00-0400 Body height 149.86 cm Danae Grant Other [facility] Other 02-08-2023 15:00-0400 Body mass index (BMI) [Ratio] 21.61 kg/m2 Danae Grant Other [facility] Other 02-08-2023 15:00-0400 Body weight 48.54 kg Danae Grant Other [facility] Other 02-08-2023 15:00-0400 Diastolic blood pressure 71 mm[Hg] Danae Grant Other [facility] Other 02-08-2023 15:00-0400 Respiratory rate 12 /min Danae Grant Other [facility] Other 02-08-2023 15:00-0400 Systolic blood pressure 126 mm[Hg] Danae Rudy Other [facility] Other Encounters Encounter Date Encounter Type Care Provider Facility Start: 02-06-2024 End: 02-06-2024 ambulatory Elisa Donohue MD Facility:[facility] Start: 01-10-2024 End: 01-10-2024 ambulatory ANKIT D BEJ Not Available Start: 11-24-2023 End: 11-25-2023 ambulatory ENRIQUE RENE Not Available Start: 11-22-2023 End: 11-22-2023 ambulatory SHERYL WENGERD Not Available Start: 11-17-2023 End: 11-18-2023 ambulatory ENRIQUE RENE Not Available Start: 11-15-2023 End: 11-15-2023 ambulatory SHERYL WENGERD Not Available Start: 11-10-2023 End: 11-11-2023 ambulatory SHERYL WENGERD Not Available Start: 10-27-2023 End: 10-27-2023 ambulatory SHERYL WENGERD Not Available Start: 10-25-2023 End: 10-26-2023 ambulatory SHERYL WENGERD Not Available Start: 10-20-2023 End: 10-20-2023 ambulatory ENRIQUE RENE Not Available Start: 10-18-2023 End: 10-19-2023 ambulatory SHERYL WENGERD Not Available Start: 10-18-2023 End: 10-18-2023 ambulatory ANKIT D BEJ Not Available Start: 10-13-2023 End: 10-13-2023 ambulatory ENRIQUE RENE Not Available Start: 10-11-2023 End: 10-12-2023 ambulatory SHERYL WENGERD Not Available Start: 10-06-2023 End: 10-06-2023 ambulatory ENRIQUE RENE Not Available Start: 10-03-2023 End: 10-04-2023 ambulatory ENRIQUE RENE Not Available Start: 09-27-2023 End: 09-28-2023 ambulatory SHERYL WENGERD Not Available Start: 09-22-2023 End: 09-22-2023 ambulatory SHERYL JASSO Not Available Start: 09-19-2023 End: 09-20-2023 ambulatory ENRIQUELATESHA AVENDAÑORENE Not Available Start: 09-15-2023 End: 09-15-2023 ambulatory ENRIQUELATESHA AVENDAÑORENE Not Available Start: 08-16-2023 End: 08-16-2023 ambulatory ANKIT RESENDIZ Not Available Start: 04-25-2023 End: 04-25-2023 ambulatory Danae Grant Other [facility] Other Start: 04-25-2023 Telephone encounter Danae Grant [facility] Start: 04-11-2023 End: 04-11-2023 ambulatory Danae Grant Other [facility] Other Start: 04-11-2023 Office outpatient visit 15 minutes Danae Grant [facility] Start: 03-28-2023 End: 03-28-2023 ambulatory Elisa Donohue MD Facility:[facility] Start: 03-07-2023 Telephone encounter Danae Grant [facility] Start: 03-07-2023 End: 03-07-2023 ambulatory Elisa Donohue MD [facility] Other Start: 02-11-2023 End: 02-11-2023 ambulatory Danae Grant Other [facility] Other Start: 02-11-2023 Telephone encounter Danae Grant [facility] Start: 02-08-2023 End: 02-08-2023 Departed Referred MD Danae Grant Work Phone: [facility] [place] Work Phone: Start: 02-08-2023 End: 02-08-2023 ambulatory MD Danae Grant Work Phone: [facility] Work Phone: Start: 02-08-2023 Office outpatient visit 15 minutes Danae Grant [facility] Start: 01-15-2023 End: 01-15-2023 ambulatory Danae Grant Facility:[facility] Start: 01-15-2023 End: 01-15-2023 ambulatory MD Danae Grant Work Phone: [facility] Work Phone: Start: 01-15-2023 End: 01-15-2023 Departed Referred MD Danae Grant Work Phone: [facility] Work Phone: Start: 10-01-2022 End: 10-01-2022 ambulatory Danae Grant Facility:[facility] Start: 10-01-2022 End: 10-01-2022 ambulatory MD Danae Grant Work Phone: [facility] Work Phone: Start: 10-01-2022 End: 10-01-2022 Patient encounter procedure MD Danae Grant Work Phone: [facility] [place] Work Phone: Start: 04-12-2022 End: 04-12-2022 ambulatory Danae Grant Facility:[facility] Start: 04-12-2022 End: 04-12-2022 ambulatory MD Danae Grant Work Phone: [facility] Work Phone: Start: 04-12-2022 End: 04-12-2022 Patient encounter procedure MD Danae Grant Work Phone: [facility] [place] Start: 02-19-2022 ambulatory EVARISTO MAGGI Facility :[facility] Start: 11-20-2021 End: 11-21-2021 ambulatory EVARISTO MAGGI Facility:[facility] Start: 10-23-2021 End: 10-23-2021 ambulatory EVARISTO MAGGI Facility:[facility] Start: 10-09-2021 End: 10-10-2021 ambulatory EVARISTO MAGGI Facility:[facility] Start: 05-28-2021 End: 05-29-[address] DANAE GRANT Facility:[facility] Start: 05-16-2018 End: 05-16-2018 Patient encounter procedure Maximilian Grover Facility:[facility] Procedures Date Procedure Procedure Detail Performing Clinician Start: 10-01-2022 X-ray of lumbar spin e, four or more views MD Danae Grant Work Phone: Plan of Treatment Date Care Activity Detail Author Start: 02-08-2023 Bacteria identified in Urine by Culture Urine Culture [facility] Start: 10-01-2022 [facility] Start: 04-12-2022 [facility] Glucose measurement estimated from glycated hemoglobin [facility] Work Phone: Glucose measurement estimated from glycated hemoglobin [facility] Hemoglobin A1c/Hemoglobin.total in Blood [facility] Work Phone: Hemoglobin A1c/Hemoglobin.total in Blood [facility] Immunizations Immunization Date Immunization Notes Care Provider Fa cility 02-08-2023 influenza, high dose seasonal, preservative-free Danae Grant Other [facility] Other 04-30-2021 COVID-19 Vaccine Moderna - Documentation Purposes Only Danae Grant Other [facility] Other 03-19-2021 influenza virus vaccine, split virus (incl. purified surface antigen) Danae Grant Other [facility] Other 09-18-2020 COVID-19 Vaccine Pfi zer - Documentation Purposes Only Danae Grant Other [facility] Other 08-29-2020 COVID-19 Vaccine Pfi zer - Documentation Purposes Only Danae Grant Other [facility] Other 03-06-2020 influenza virus vaccine, split virus (incl. purified surface antigen) Danae Grant Other [facility] Other 03-29-2019 pneumococcal polysaccharide vaccine, 23 valent Danae Grant Other [facility] Other 02-23-2019 influenza virus vaccine, split virus (incl. purified surface antigen) Danae Grant Other [facility] Other 03-07-2018 influenza virus vaccine, split virus (incl. purified surface antigen) Danae Grant Other [facility] Other 02-10-2017 influenza virus vaccine, split virus (incl. purified surface antigen) Danae Grant Other [facility] Other 05-20-2016 influenza virus vaccine, split virus (incl. purified surface antigen) Danae Grant Other [facility] Other 05-20-2016 influenza, injectabl e, quadrivalent, preservative free Danae Grant Other [facility] Other 05-06-2015 pneumococcal conjuga te vaccine, 13 valent Danae Grant Other [facility] Other 03-11-2015 influenza virus vaccine, split virus (incl. purified surface antigen) Danae Grant Other [facility] Other 02-20-2014 tetanus and diphther ia toxoids, adsorbed, preservative free, for adult use (5 Lf of tetanus toxoid and 2 Lf of diphtheria toxoid) Danae Grant Other [facility] Other 04-04-2013 tetanus and diphther ia toxoids, adsorbed, preservative free, for adult use (5 Lf of tetanus toxoid and 2 Lf of diphtheria toxoid) Danae Grant Other [facility] Other Payers Date Payer Category Payer Medicare 2022 Unknown 2022 Self-pay [id number] 2018 Medicare [id number] 1959 Medicare [id number] 1959 Unknown [id number] 1940 Unknown [id number] 2.16.84 0.1.330106.3.579.2.727 1940 Unknown [id number] 2.16.84 0.1.797167.3.579.2.593 1940 Unknown [id number] 2.16.84 0.1.057889.3.579.2.593 1940 Unknown [id number] 2.16.84 0.1.986923.3.579.2.593 1940 Unknown [id number] 2.16.84 0.1.783085.3.579.2.593 1940 Unknown [id number] 2.16.84 0.1.535180.3.579.2.593 1940 Unknown [id number] 2.16.84 0.1.712044.3.579.2.1259 1940 Unknown [id number] 2.16.84 0.1.178815.3.579.2.1259 1940 Unknown [id number] 2.16.84 0.1.221465.3.579.2.1259 1940 Unknown [id number] 2.16.84 0.1.154140.3.579.2.1259 1940 Unknown [id number] 2.16.84 0.1.309619.3.579.2.1259 1940 Unknown [id number] 2.16.84 0.1.155295.3.579.2.1259 1940 Unknown [id number] 2.16.84 0.1.033503.3.579.2.1259 1940 Unknown [id number] 2.16.84 0.1.394711.3.579.2.1259 1940 Unknown [id number] 2.16.84 0.1.602652.3.579.2.1259 1940 Unknown [id number] 2.16.84 0.1.529842.3.579.2.1258 1940 Unknown [id number] 2.16.84 0.1.352167.3.579.2.1258 1940 Unknown [id number] 2.16.84 0.1.701891.3.579.2.1258 1940 Unknown [id number] 2.16.84 0.1.551327.3.579.2.1258 1940 Unknown [id number] 2.16.84 0.1.740339.3.579.2.1258 1940 Unknown [id number] 2.16.84 0.1.924858.3.579.2.1258 1940 Unknown [id number] 2.16.84 0.1.319442.3.579.2.1258 1940 Unknown [id number] 2.16.84 0.1.528646.3.579.2.1258 1940 Unknown [id number] 2.16.84 0.1.235349.3.579.2.9 1940 Unknown [id number] 2.16.84 0.1.378120.3.579.2.1258 1940 Unknown [id number] 2.16.84 0.1.949145.3.579.2.1258 1940 Unknown [id number] 2.16. 840.1.200337.3.579.2. 1940 Unknown [id number] 2.16. 840.1.856456.3.579.2.196 1940 Unknown [id number] 2.16. 840.1.077260.3.579.2.196 Medicare [id number] 2.1 6.840.1.147433.19 Medicare [id number] 2.16 .840.1.228609.19 Unknown [id number] 2.16.8 40.1.539742.3.579.2.531 Unknown [id number] 2.16.8 40.1.453205.3.579.2.531 Unknown [id number] 2.16.8 40.1.498053.3.579.2.531 Unknown [id number] 2.16.8 40.1.114376.3.579.2.531 Social History Date Type Detail Facility Tobacco smoking status NHIS Unknown if ever smoked [facility] Work Phone: Start: 1940 Sex Assigned At Female F [facility] Sex Assigned At Sex Assigned At Bir th [facility] Other Evaluation note 04-11-2023 Note Date & Type Note Facility 04-11-2023 Evaluation note Encounter Date Diagnosis Assessment Notes Mar, Mixed stress and urge urinary incontinence (ICD-10 - N39.46) States improvement on myrbetriq, continue at 25mg dose Mar, Abnormal MRI, lumbar spine (ICD-10 - R93.7) will contact pain mgmt with her concerns. [facility] Other Evaluation note 03-07-2023 Note Date & Type Note Facility 03-07-2023 Evaluation note Encounter Date Diagnosis Assessment Notes Feb, Mixed stress and urge urinary incontinence (ICD-10 - N39.46) [facility] Other Evaluation note 02-08-2023 Note Date & Type Note Facility 02-08-2023 Evaluation note Encounter Date Diagnosis Assessment Notes Jan, Mixed stress and urge urinary incontinence (ICD-10 - N39.46) Myrbetriq #28 samples given to pt. Discussed potential referral to Urology due to the amount of leakage. Pt just went through a lot of appts, procedures w pain management. Will start w myrbetriq and consider referral in a few weeks if not improved. [facility] Other Evaluation note Note Date & Type Note Facility Evaluation note No assessment information availa ble [facility] Work Phone: Evaluation note Note Date & Type Note Facility Evaluation note No Information [facility] [employer] Other History general Narrative - Reported Note Date & Type Note Facility History general Narrative - Reported Type Medical History SCOLIOSIS Medical History Parkinson Surgical History D&C Hospitalization History SEE ABOVE [facility] [employer] Other Summary Purpose Family History No Family History Records FoundNo Family History Records FoundNo Family History Records FoundNo Family History Records FoundNo Family History Records FoundNo Family History Records Found Advance Directives No Advanced Directives Records Found Advance Directive Response Recorded Date/ Time Advance Directives No May 02, 2017 11:42am Advance Directive Response Recorded Date/ Time Advance Directives No May 02, 2017 12:42pm Chief Complaint and Reason for Visit Chief Complaint G62.9;R79.89 Chief Complaint See order Chief Complaint complete Additional Source Comments INFORMATION SOURCE (unrecogn ized section and content) DATE CREATED AUTHOR 06/03/2018 [facility] DATE CREATED AUTHOR AUTHOR'S ORGANIZ ATION 10/26/2019 [employer] DATE CREATED AUTHOR AUTHOR'S ORGANIZ ATION [facility]/26/[address] [facility] DATE CREATED AUTHOR AUTHOR'S ORGANIZ ATION 02/16/2023 [facility] DATE CREATED AUTHOR AUTHOR'S ORGANIZ ATION 01/12/2024 [facility] EPIC DATE CREATED AUTHOR AUTHOR'S ORGANIZ ATION 02/12/2024 [facility] Care Teams (unrecognized sec tion and content) Team Status: Inactive Member Role Status Dates Danae Grant MD Primary Care Provider, Referring Tony pleitez Active Ankit Resendiz MD Attending Provider Active Team Status: Active Member Role Status Dates Danae Grant MD Primary Care Provider Active Team Status: Inactive Member Role Status Dates Danae Grant MD Primary Care Provider Active Ankit Resendiz MD Attending Provider Active Team Status: Inactive Member Role Status Dates Danae Grant MD Primary Care Provider Active [facility] Attending Provider Active Team Status: Inactive Member Role Status Dates Danae Grant MD Attending Provider Active Goals (unrecognized section and content) Goals may be documented in a n alternate sectionGoals may be documented in an alternate sectionGoals may be documented in an alternate sectionNo InformationNo InformationGoals may be documented in an alternate sectionNo InformationNo InformationNo Information REASON FOR VISIT (unrecogniz ed section and content) urine cultureUrinary inconti nence; 8-9 wksSampleseveral concernsabnormal lumbar MRI FOR RECORDS PERTAINING TO PATIENTS WHO ARE OR HAVE BEEN ENROLLED IN A CHEMICAL DEPENDENCY/SUBSTANCEABUSE PROGRAM, SOME INFORMATION MAY BE OMITTED. This clinical summary was aggregated from multiple sources. Caution should be exercised in using it in the provision of clinical care. This summary normalizes information from multiple sources, and as a consequence, information in this document may materially change the coding, format and clinical context of patient data. In addition, data may be omitted in some cases. CLINICAL DECISIONS SHOULD BE BASED ON THE PRIMARY CLINICAL RECORDS. [employer] provides no warranty or guarantee of the accuracy or completeness of information in this document.
[2024-02-20 11:39] VITALS: BP 171/74; BP 174/77; PULSE 79; O2SAT 97
[2024-02-20] MEDS: 0.9 % SODIUM CHLORIDE 10 ML SYRINGE - SALINE FLUSH INJ (11:43)
[2024-02-20] MEDS: BUPIVACAINE HCL 0.25% PF 25 MG/10 ML VIAL INJ (11:43)
--- NOTE | 2024-02-20 11:43 | P.ON_ITS ---
Date of procedure: 02/20/24 Pre-op diagnosis: Pain due to lumbar stenosis with neurogenic claudication Post-op diagnosis: same as pre-op Procedure: Procedure: Right L4-5, L5-S1 transforaminal epidural steroid injection Medications: Bupivacaine 0.25% 2cc, lidocaine 2% 1cc, kenalog 80mg The patient was seen and examined in the preoperative holding area.? Informed consent was obtained and placed on the chart.? Patient was brought to the medical procedure unit and placed in the prone position where a timeout was completed verifying the correct patient, procedure site, position, and planned special equipment using sterile aseptic technique.? Under direct fluoroscopic visualization a 25-gauge Quincke tipped spinal needle was advanced to the designated neural foramen where contrast dye was injected to show adequate spread.? The needle was inserted at level right L4-5. There was no evidence of vascular or adverse uptake.? Epidural spread was appreciated.? The above- mentioned injectate was then placed in a 1.5 mL aliquot preceded by negative aspiration.? The needle was removed. The needle was inserted and the procedure repeated at level right L5-S1.? The surgery site was covered.? Patient was taken to the postprocedural recovery area and monitored for an appropriate length of time before found suitable for discharge in the accompaniment of a responsible adult. Anesthesia: Local Surgeon: Elisa Donohue Pathology: none sent Condition: stable Disposition: no change
[2024-02-20] MEDS: TRIAMCINOLONE ACETONIDE 40 MG/ML VIAL 80 MG INJ (11:44)
[2024-02-20] MEDS: LIDOCAINE HCL 2% 400 MG/20 ML MDV INJ (11:44)
[2024-02-20] MEDS: IOHEXOL 240 MG/ML - 10 ML VIAL 12 MG INJ (11:44)
== END 2024-02-20 11:52 | disposition home or self-care (01) ==
LOC: SURGOUT 10:42
PROVIDERS: PCP Family Medicine; Visit Provider Anesthesiology
DX: M48.062 Spinal stenosis, lumbar region with neurogenic claudication (principal)
CPT/HCPCS: 64483; 64484; J0665; J3301; Q9966

== ENCOUNTER 2024-02-29 13:43 | Outpatient (OUT) | payer MEDICARE, OTHER, SELFPAY ==
--- NOTE | 2024-02-29 14:27 | P.CN_ITS ---
Consult Note: HPI Data of Consult Patient: known to practice within the last 3 years Consult date: 02/06/24 Requesting Physician: Farzaneh Syed NP Primary Care Provider: Danae Wallace MD Consult Narrative Reason for consult: midback, low back, right leg pain Narrative: 83yof who presents for assessment. notes worsening pain in midback, low back, right leg. recently has had several falls, where she has acute pain. right leg tends to feel weak. 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 continues in a series of provider directed home exercises >6 weeks, without benefit. uses tylenol prn. recently underwent right L4-5 L5-S1 TFESI with mild relief ongoing, complaining of low back pain right sided greater than left. has trialed tylenol #3 with drowsiness and dizziness, has not utilized often due to side effects. cc:: CC: Farzaneh Syed NP Review of Systems ROS Status of ROS 10 or more systems reviewed and unremark able except as noted in history and below PFSH PFSH Medical History Parkinson disease ?G20 - Parkinson's disease (ICD-10) Surgical History History of phacoemulsification of cataract of both eyes with intraocular lens implantation ?Z98.41 - Cataract extraction status, right eye (ICD-10) ?Z98.42 - Cataract extraction status, left eye (ICD-10) ?Z96.1 - Presence of intraocular lens (ICD-10) Meds Home Medications and Allergies Home Medications ?Medication ?Instructions ?Recorded ?Confirmed ?Type acetaminophen 650 mg 650 mg PO Q8H PAIN 11/08/22 02/20/24 History tablet,extended release (8 Hour Pain Reliever) ascorbic acid (vitamin C) 1,000 mg 1 g PO DAILY 11/08/22 02/20/24 History tablet (Vitamin C) calcium 100 mg capsule mg PO .QD 11/08/22 History carbidopa 25 mg-levodopa 100 mg 1 tab PO QID 11/08/22 02/20/24 History tablet (Sinemet) cholecalciferol (vitamin D3) 50 50 mcg PO DAILY 11/08/22 02/20/24 History mcg (2,000 unit) tablet (Vitamin D3) diphenhydramine 25 2 tab PO .HS PRN sleep 11/08/22 02/20/24 History mg-acetaminophen 500 mg tablet (Tylenol PM Extra Strength) magnesium 200 mg tablet 200 mg PO DAILY 11/08/22 02/20/24 History multivitamin 1 tab PO DAILY 11/08/22 02/20/24 History zinc 50 mg tablet 50 mg PO DAILY 11/08/22 02/20/24 History entacapone 200 mg tablet 200 mg PO BID 01/25/23 02/20/24 History acetaminophen 300 mg-codeine 30 mg 1 tab PO BID PRN pain #60 tabs 02/06/24 02/20/24 Rx tablet Allergies Allergy/AdvReac Type Severity Reaction Status Date / Time No Known Drug Allergies Allergy Verified 02/20/24 11:02 Exam Narrative Exam Narrative: Psych-alert and oriented x 3. Attentive and appropriate, constitutionally normal, displays normal mood and affect per situation. There are no obvious deficits in memory, reasoning, or intellect.? Skin-no obvious rashes, bruising, erythema noted to the patient's area of pain.? Extremities- extremities are warm with minimal edema and palpable pulses. Lumbar-tenderness to palpation noted in the lumbar spine and paraspinal musculature. Pain is elicited with flexion, extension, and lateral rotation of the lumbar spine. Range of motion is diminished with these motions. Facet loading maneuvers are positive.? right sij positive keila(patricks), gaenslens, thigh thrust, compression test Strength-noted to be unremarkable Sensory-no notable sensory deficits in the bilateral lower extremities to touch or pinprick in all dermatomal distributions Coordination remains intact.? Gait remains non-antalgic. Results Additional Findings Additional findings: If on a controlled substance or opioids, I have checked an [place] report on this patient and there are no aberrancies noted in the prescribing history.??If on a controlled substance or opioid a drug screen was completed and reviewed within the last year, and if there has not been a drug screen completed we ordered one today to monitor higher risk, state monitored pain medication use. As part of providing excellent, safe, comprehensive care, the following was completed at our patient's visit: 1. A medication reconciliation and review to ensure accurate knowledge of current/active medications, including asking our patients to inform us about any [id number] medications or herbal remedies/nutritional supplements/alternative remedies. 2. A review to specifically ensure our patients have had annual screening for screening for depression, screening for tobacco use, and screening for unhealthy alcohol use. For concerning screenings had a discussion with the patient, provided patient education, and recommended follow-up with primary care provider when appropriate. If patient noted with a risk of falling, they received education on strength, gait, and balance training to prevent future risk of falling. Assessment and Plan Assessment and Plan (1) Sacroiliac joint pain: (2) Lumbar stenosis with neurogenic claudication: (3) Lumbar spondylosis: Assessment and Plan: could consider right L1-2 L2-3 MBB x2 working towards RFA in the future (4) Lumbar scoliosis: Assessment and Plan: unfortunately with degree of curvature she is unlikely to have significant relief from interventional therapy Plan right SIJ injection under fluoroscopy stop tylenol #3 due to dizziness and drowsiness, start hydrocodone-acetaminophen 5-325mg daily as needed moderate to severe pain 7 day trial 7 tabs continue HEP as tolerated encouraged rollator use over cane f/u after injection
== END 2024-02-29 13:44 | disposition home or self-care (01) ==
PROVIDERS: PCP Family Medicine; Visit Provider Nurse Practitioner
DX: M53.3 Sacrococcygeal disorders, not elsewhere classified (principal); M48.062 Spinal stenosis, lumbar region with neurogenic claudication; M47.816 Spondylosis without myelopathy or radiculopathy, lumbar region; M41.86 Other forms of scoliosis, lumbar region
CPT/HCPCS: G0463

== ENCOUNTER 2024-03-12 10:28 | Day surgery (SDC) | payer MEDICARE, OTHER, SELFPAY ==
--- OUTSIDE RECORDS SUMMARY | 2024-03-12 10:47 | XMS_ITS | CCD ---
Author Organization [facility] Care Team Providers Care Certified Professional Coder Name Role Phone Reilly, Maximilian Unavailable Unavailable Zahler, Maximilian Unavailable Unavailable Reilly, Maximilian Unavailable Unavailable NATALIE [phone] UNKNOWN Unavailable Unavailable RUDY, DR DANAE Rosa Admitting Unavailable RUDY, DR DANAE Rosa Attending Unavailable RUDY, DR DANAE Rosa Primary Care Unavailable WEST, DR PING Valentin Consulting Unavailable ERNAEBJENNA, DR MARKY Iraheta Consulting Unavailable RUDY, DR DANAE Rosa Consulting [...] Care Provider MD Ankit Resendiz Attending Provider [phone] MD Danae Grant Primary Care Provider Community, Outreach Attending Provider Danae Grant Unavailable MD Danae Grant Attending Provider [phone] NO FAMILY, PHYSICIAN Primary Care Unavailable Grant, [...] Referring Unavailable BEJ, ANKIT D Attending Unavailable Giedraitis , Andrius Vytfloresita Attending Unavailable Giedraitis , Andrius Vytautas Attending Unavailable Giedraitis , Andrius Vytautas Attending Unavailable Giedraitis , Andrius Vytautas Attending Unavailable Allergies Allergy Classification Reported Allergen(s) Allergy Type Date of Onset Reaction(s) Facility (1 source) No Known Medication Allergies; Translations: [No Known Medication Allergies] Propensity to adverse reactions (disorder) [facility] Repository Medications Current Medications Medication Drug Class(es) [...] entacapone 200 mg oral tablet (3 sources) Upnaeyyg-S-Vzdkxdghev sferase Inhibitor take 1 tablet by mouth [...] Urinalysis - DIPSTICKon 01-28 Appearance (U) cloudy Brandpotion Other Bilirubin Ql (U) small [employer] Other Color (U) orange Gabstr Other Glucose Ql (U) Negative Brandpotion Other Hemoglobin Ql (U) Negative BrightBytes Other Ketones Ql (U) off chart Brandpotion Other Leukocyte esterase Test strip Ql (U) off chart Gabstr Other Nitrite Ql (U) Negative [employer]otion Other pH (U) trace Gab[employer] Other Protein Ql (U) trace [employer]otion Other Specific gravity (U) [Rel density] 1.015 Gabstr Other Urobilinogen (U) [Mass/Vol] 0.2 mg/dL [place] 24S[employer] Other Urinalysis - DIPSTICK Nor 24Symbols Other Urine Cultureon 02-08-2023 Bacteria identified Cx Nom (U) <9,000 colonies/ml mixed bacterial skin contaminants 2 Days PERFORMED BY: [place] [address] PATHOLOGIST EQUIPMENT MAINTENANCE SUPERVISOR ISAIAS BAHENA M.D. Normal [facility] Comment on above: Performed By: #### C UU #### [address] Bacteria identified Cx Nom (U) Gabstr Other Alanine aminotransferase [En zymatic activity/volume] in Serum or PlasmaOrdered By: OUTREACH COMMUNITY on 01-15-2023 ALT [Catalytic activity/Vol] 11 U/L 7-52 [facility] Albumin [Mass/volume] in Ser um or Plasma by Bromocresol green (BCG) dye binding methoOrdered By: OUTREACH COMMUNITY on 01-15-2023 Albumin BCG dye [Mass/Vol] 4.2 g/dL 3.5-5.7 [facility] Alkaline phosphatase [Enzyma tic activity/volume] in Serum or PlasmaOrdered By: OUTREACH COMMUNITY on 01-15-2023 ALP [Catalytic activity/Vol] 35 U/L 34-104 [facility] Aspartate aminotransferase [ Enzymatic activity/volume] in Serum or PlasmaOrdered By: OUTREACH COMMUNITY on 01-15-2023 AST [Catalytic activity/Vol] 28 U/L 13-39 [facility] Bilirubin.total [Mass/volume ] in Serum or PlasmaOrdered By: OUTREACH COMMUNITY on 01-15-2023 Bilirubin [Mass/Vol] 0.4 mg/dL 0.3-1.0 [facility] CBC Without Differentialon 0 01-15-2023 Erythrocyte distribution width (RBC) [Ratio] 13.2 % Normal 11.9-15.3 [facility] Comment on above: Performed By: #### O UTREACH CMP, OUTREACH LIPID, CBCNOOUTREACH #### [address] Hematocrit (Bld) [Volume fraction] 34.7 % Normal 34.0-46.4 [facility] Comment on above: Performed By: #### O UTREACH CMP, OUTREACH LIPID, CBCNOOUTREACH #### [address] Hemoglobin (Bld) [Mass/Vol] 11.5 g/dL Low 11.8-15.4 [facility] Comment on above: Performed By: #### O UTREACH CMP, OUTREACH LIPID, CBCNOOUTREACH #### [address] MCH (RBC) [Entitic mass] 32.2 pg Normal 24.7-34.3 [facility] Comment on above: Performed By: #### O UTREACH CMP, OUTREACH LIPID, CBCNOOUTREACH #### [address] MCV (RBC) [Entitic vol] 97.2 fL Normal 80-100 [facility] Comment on above: Performed By: #### O UTREACH CMP, OUTREACH LIPID, CBCNOOUTREACH #### [address] Mean Corpuscular HGB Conc 33.1 g/dL Normal 32.0-35.0 [facility] Comment on above: Performed By: #### O UTREACH CMP, OUTREACH LIPID, CBCNOOUTREACH #### [address] Platelet mean volume (Bld) [Entitic vol] 7.9 fL Normal 6.3-10.7 [facility] Comment on above: Result Comment: PERF ORMED BY: [place] [address] PATHOLOGIST EQUIPMENT MAINTENANCE SUPERVISOR ISAIAS BAHENA M.D. Performed By: #### O UTREACH CMP, OUTREACH LIPID, CBCNOOUTREACH #### [address] Platelets (Bld) [#/Vol] 319 10*3/uL Normal 150-450 [facility] Comment on above: Performed By: #### O UTREACH CMP, OUTREACH LIPID, CBCNOOUTREACH #### [address] RBC (Bld) [#/Vol] 3.56 10*6/uL Low 3.60-5.00 [facility] Comment on above: Performed By: #### O UTREACH CMP, OUTREACH LIPID, CBCNOOUTREACH #### [address] WBC (Bld) [#/Vol] 9.3 10*3/uL Normal 3.8-11.6 [facility] Comment on above: Performed By: #### O UTREACH CMP, OUTREACH LIPID, CBCNOOUTREACH #### [address] CMP Outreachon 01-15-2023 Albumin [Mass/Vol] 4.2 g/dL Normal 3.5-5.7 [facility] Comment on above: Performed By: #### O UTREACH CMP, OUTREACH LIPID, CBCNOOUTREACH #### [address] ALP [Catalytic activity/Vol] 35 U/L Normal 34-104 [facility] Comment on above: Performed By: #### O UTREACH CMP, OUTREACH LIPID, CBCNOOUTREACH #### [address] [place] [address] [place] ALT [Catalytic activity/Vol] 11 U/L Normal 7-52 [facility] Comment on above: Performed By: #### O UTREACH CMP, OUTREACH LIPID, CBCNOOUTREACH #### [facility] [address] Anion gap [Moles/Vol] 12.5 mmol/L Normal 6.0-15.0 [facility] Comment on above: Performed By: #### O UTREACH CMP, OUTREACH LIPID, CBCNOOUTREACH #### [facility] [address] [place] [address] AST [Catalytic activity/Vol] 28 U/L Normal 13-39 [facility] Comment on above: Performed By: #### O UTREACH CMP, OUTREACH LIPID, CBCNOOUTREACH #### [facility] [address] [place] [address] Bilirubin [Mass/Vol] 0.4 mg/dL Normal 0.3-1.0 [facility] Comment on above: Performed By: #### O UTREACH CMP, OUTREACH LIPID, CBCNOOUTREACH #### [facility] [address] [place] [address] [place] Calcium [Mass/Vol] 9.9 mg/dL Normal 8.6-10.3 [facility] Comment on above: Performed By: #### O UTREACH CMP, OUTREACH LIPID, CBCNOOUTREACH #### [facility] [address] [place] [address] [place] Chloride [Moles/Vol] 104 mmol/L Normal 98-107 [facility] Comment on above: Performed By: #### O UTREACH CMP, OUTREACH LIPID, CBCNOOUTREACH #### [facility] [address] [place] [address] [place] CO2 [Moles/Vol] 26.8 mmol/L Normal 21.0-31.0 [facility] Comment on above: Performed By: #### O UTREACH CMP, OUTREACH LIPID, CBCNOOUTREACH #### [facility] [address] [place] [address] [place] Creatinine [Mass/Vol] 0.76 mg/dL Normal 0.60-1.20 [facility] Comment on above: Performed By: #### O UTREACH CMP, OUTREACH LIPID, CBCNOOUTREACH #### [facility] [address] [place] [address] [place] GFR/1.73 sq M.predicted MDRD (S/P/Bld) [Vol rate/Area] mL/min/{1.73_m2} Normal [facility] Comment on above: Performed By: #### O UTREACH CMP, OUTREACH LIPID, CBCNOOUTREACH #### [facility] [address] [place] [address] [place] Glucose [Mass/Vol] 102 mg/dL High 70-100 [facility] Comment on above: Result Comment: [facility] Glucose Reference Range is dependent on time and content of last meal. Glucose of more than 200 mg/dL in a nonstressed, ambulatory subject supports the diagnosis of Diabetes Mellitus. ADA recommended reference range Performed By: #### O UTREACH CMP, OUTREACH LIPID, CBCNOOUTREACH #### [facility] [address] [place] [address] [place] Potassium [Moles/Vol] 4.3 mmol/L Normal 3.5-5.1 [facility] Comment on above: Performed By: #### O UTREACH CMP, OUTREACH LIPID, CBCNOOUTREACH #### [facility] [address] [place] [address] [place] Protein [Mass/Vol] 6.6 g/dL Normal 6.4-8.9 [facility] Comment on above: Performed By: #### O UTREACH CMP, OUTREACH LIPID, CBCNOOUTREACH #### [facility] [address] [place] [id number] [place] Sodium [Moles/Vol] 139 mmol/L Normal 136-145 [facility] Comment on above: Performed By: #### O UTREACH CMP, OUTREACH LIPID, CBCNOOUTREACH #### [facility] [address] [place] [address] [place] Urea nitrogen [Mass/Vol] 28 mg/dL High 7-25 [facility] Comment on above: Performed By: #### [facility], OUTREACH LIPID, CBCNOOUTREACH #### [facility] [address] Calcium [Mass/volume] in Ser um or PlasmaOrdered By: OUTREACH COMMUNITY on 01-15-2023 Calcium [Mass/Vol] 9.9 mg/dL 8.6-10.3 [facility] Carbon dioxide, total [Moles /volume] in Serum or PlasmaOrdered By: OUTREACH COMMUNITY on 01-15-2023 CO2 [Moles/Vol] 26.8 mmol/L 21.0-31.0 [facility] Chloride [Moles/volume] in S zachary or PlasmaOrdered By: OUTREACH COMMUNITY on 01-15-2023 Chloride [Moles/Vol] 104 mmol/L 98-107 [facility] Cholesterol [Mass/volume] in Serum or PlasmaOrdered By: OUTREACH COMMUNITY on 01-15-2023 Cholesterol [Mass/Vol] 211 mg/dL 140-200 [facility] Comment on above: Chol less than 200 m g/dl low riskChol 201-239 mg/dl borderline riskChol 240 mg/dl and greater high risk Cholesterol in LDL Calc [Mas s/Vol]Ordered By: OUTREACH COMMUNITY on 01-15-2023 Cholesterol in LDL [Mass/Vol] 121 mg/dL 0-100 [facility] Comment on above: LDL ATP III CLASSIFI CATIONLDL less than 100 mg/dL OptimalLDL 100-129 mg/dL Near or above optimalLDL 130-159 mg/dL Borderline highLDL 160-189 mg/dL HighLDL greater than 189 mg/dL Very high Cholesterol in VLDL Calc [Ma ss/Vol]Ordered By: OUTREACH COMMUNITY on 01-15-2023 Cholesterol in VLDL [Mass/Vol] 11 mg/dL [facility] Creatinine [Mass/volume] in Serum or PlasmaOrdered By: OUTREACH COMMUNITY on 01-15-2023 Creatinine [Mass/Vol] 0.76 mg/dL 0.60-1.20 [facility] Erythrocyte distribution wid th Auto (RBC) [Ratio]Ordered By: OUTREACH COMMUNITY on 01-15-2023 Erythrocyte distribution width (RBC) [Ratio] 13.2 % 11.9-15.3 [facility] Glucose [Mass/volume] in Ser um or PlasmaOrdered By: [facility] on 01-15-2023 Glucose [Mass/Vol] 102 mg/dL 70-100 [facility] Comment on above: ADA recommended refe rence rangeRandom Glucose Reference Range is dependent on time and content of last meal. Glucose of more than 200 mg/dL in a nonstressed, ambulatory subject supports the diagnosis of Diabetes Mellitus. Hematocrit Auto (Bld) [Volum e fraction]Ordered By: [facility] on 01-15-2023 Hematocrit (Bld) [Volume fraction] 34.7 % 34.0-46.4 [facility] Hemoglobin [Mass/volume] in BloodOrdered By: [facility] on 01-15-2023 Hemoglobin (Bld) [Mass/Vol] 11.5 g/dL 11.8-15.4 [facility] Leukocytes [#/volume] correc glenda for nucleated erythrocytes in Blood by Automated counOrdered By: [facility] on 01-15-2023 WBC corrected for nucl RBC Auto (Bld) [#/Vol] 9.3 10*3/uL 3.8-11.6 [facility] Lipid Profile [facility] Cholesterol [Mass/Vol] 211 mg/dL High 140-200 [facility] Comment on above: Result Comment: Chol less than 200 mg/dl low risk Chol 201-239 mg/dl borderline risk Chol 240 mg/dl and greater high risk Performed By: #### O R[facility]E [facility], OUTREACH LIPID, CBCNOOUTREACH #### [facility] [address] [place] [id number] [place] Cholesterol in HDL [Mass/Vol] 78 mg/dL Normal 23-92 [facility] Comment on above: Result Comment: HDL CHOL ATP-III CLASSIFICATION Cardiovascular Risk HDL > or equal to 60 mg/dL LOW HDL < 40 mg/dL HIGH Performed By: #### O RYLEE [facility], OUTREACH LIPID, CBCNOOUTREACH #### [facility] [address] [place] [address] [facility] Cholesterol.total/Chol esterol in HDL [Mass ratio] 2.7 {ratio} Normal <5.0 [facility] Comment on above: Result Comment: PERF ORMED BY: [place] [address] PATHOLOGIST EQUIPMENT MAINTENANCE SUPERVISOR ISAIAS BAHENA M.D. Performed By: #### O RYLEE CMP, OUTREACH LIPID, CBCNOOUTREACH #### [facility] [address] LDL Cholesterol,Calculated 121 mg/dL High 0-100 [facility] Comment on above: Result Comment: LDL ATP III CLASSIFICATION LDL less than 100 mg/dL Optimal LDL 100-129 mg/dL Near or above optimal LDL 130-159 mg/dL Borderline high LDL 160-189 mg/dL High LDL greater than 189 mg/dL Very high Performed By: #### O RYLEE CMP, OUTREACH LIPID, CBCNOOUTREACH #### [address] Triglyceride w/Reflex 59 mg/dL Normal 0-149 [facility] Comment on above: Result Comment: TRIG ATP III CLASSIFICATION TRIG less than 150 mg/dL Normal TRIG 150-199 mg/dL Borderline high TRIG 200-500 mg/dL High TRIG greater than 500 mg/dL Very high Standard traceable to the Center for Disease Conrtrol and Prevention (CDC) test method. Performed By: #### O RYLEE CMP, OUTREACH LIPID, CBCNOOUTREACH #### [address] VLDL CHOLESTEROL 11 mg/dL Normal [facility] Comment on above: Performed By: #### O RYLEE CMP, OUTREACH LIPID, CBCNOOUTREACH #### [facility] [address] [place] [address] MCH Auto (RBC) [Entitic mass ]Ordered By: OUTREACH COMMUNITY on 01-15-2023 MCH (RBC) [Entitic mass] 32.2 pg 24.7-34.3 [facility] MCHC Auto (RBC) [Mass/Vol]Or dered By: OUTREACH COMMUNITY on 01-15-2023 MCHC (RBC) [Mass/Vol] 33.1 g/dL 32.0-35.0 [facility] MCV Auto (RBC) [Entitic vol] Ordered By: OUTREACH COMMUNITY on 01-15-2023 MCV (RBC) [Entitic vol] 97.2 fL 80-100 [facility] No Panel InformationOrdered By: [facility] on 01-15-2023 Estimated GFR (CKD-EPI) > 60.0 mL/Min [facility] Creatinine Clearance (Chem N/A [facility] Platelet mean volume Auto (B ld) [Entitic vol]Ordered By: [facility] on 01-15-2023 Platelet mean volume (Bld) [Entitic vol] 7.9 fL 6.3-10.7 [facility] Platelets Auto (Bld) [#/Vol] Ordered By: [facility] on 01-15-2023 Platelets (Bld) [#/Vol] 319 10*3/uL 150-450 [facility] Potassium [Moles/volume] in Serum or PlasmaOrdered By: [facility] on 01-15-2023 Potassium [Moles/Vol] 4.3 mmol/L 3.5-5.1 [facility] Protein [Mass/volume] in Ser um or PlasmaOrdered By: [facility] on 01-15-2023 Protein [Mass/Vol] 6.6 g/dL 6.4-8.9 [facility] RBC Auto (Bld) [#/Vol]Ordere d By: [facility] on 01-15-2023 RBC (Bld) [#/Vol] 3.56 10*6/uL 3.60-5.00 [facility] Serum or plasma anion gap de terminationOrdered By: OUTREACH [facility] on 01-15-2023 Anion gap [Moles/Vol] 12.5 mmol/L 6.0-15.0 [facility] Serum or plasma high density lipoprotein (HDL) cholesterol measurementOrdered By: [facility] on 01-15-2023 Cholesterol in HDL [Mass/Vol] 78 mg/dL 23-92 [facility] Comment on above: HDL CHOL ATP-III CLA SSIFICATION Cardiovascular RiskHDL > or equal to 60 mg/dL LOWHDL < 40 mg/dL HIGH Serum or plasma total choles terol/high density lipoprotein (HDL) cholesterol mass ratOrdered By: OUTREACH [facility] on 01-15-2023 Cholesterol.total/Chol esterol in HDL [Mass ratio] 2.7 {ratio} <5.0 [facility] Sodium [Moles/volume] in Ser um or PlasmaOrdered By: OUTREACH COMMUNITY on 01-15-2023 Sodium [Moles/Vol] 139 mmol/L 136-145 [facility] Triglyceride [Mass/volume] i n Serum or PlasmaOrdered By: OUTREACH COMMUNITY on 01-15-2023 Triglyceride [Mass/Vol] 59 mg/dL 0-149 [facility] Comment on above: TRIG ATP III CLASSIF ICATIONTRIG less than 150 mg/dL NormalTRIG 150-199 mg/dL Borderline highTRIG 200-500 mg/dL High TRIG greater than 500 mg/dL Very highStandard traceable to the Center for Disease Conrtrol and Prevention (CDC) test method. Urea nitrogen [Mass/volume] in Serum or PlasmaOrdered By: OUTREACH COMMUNITY on 01-15-2023 Urea nitrogen [Mass/Vol] 28 mg/dL 7-25 [facility] A1C with Estimated Average G luon 10-01-2022 Glucose [Mass/Vol] 117 mg/dL Normal [facility] Comment on above: Result Comment: PERF ORMED BY: [place] [address] PATHOLOGIST EQUIPMENT MAINTENANCE SUPERVISOR ISAIAS BAHENA M.D. Performed By: #### A 1C WT eA #### [address] HbA1c (Bld) [Mass fraction] 5.7 % High 4.3-5.6 [facility] Comment on above: Result Comment: Incr eased risk for diabetes: 5.7 - 6.4 diabetes: >6.4 glycemic control for adults with diabetes: <7.0 Performed By: #### A 1C WT eA #### [facility] [address] [place] [address] XR lumbar spine min 4V*on XR lumbar spine min 4V* [facility] Main [place] [address] [place] [address] XRay Report Signed Patient: Dacia Sprague MR#: [id number] : 1940 Acct:[id number] Age/Sex: 82 / F ADM Date: 10/01/22 Loc: XD Room: Type: [facility] Attending Dr: Ankit Resendiz MD Copies to: [...] Yaneli Neely M.D.10/01/2022 3:36 PM Dictation Location: [place] [address] Transcribed By: [facility] 10/01/22 153 Dictated By: Yaneli Neely MD 10/01/22 153 Signed By: 10/01/22 153 Normal [facility] A1C with Estimated Average [facility] 04-12-2022 Glucose [Mass/Vol] 117 mg/dL Normal [facility] Comment on above: Result Comment: PERF ORMED BY: [place] [address] PATHOLOGIST EQUIPMENT MAINTENANCE SUPERVISOR ISAIAS BAHENA M.D. Performed By: #### A 1C [facility] #### [address] HbA1c (Bld) [Mass fraction] 5.7 % High 4.3-5.6 [facility] Comment on above: Result Comment: Incr eased risk for diabetes: 5.7 - 6.4 diabetes: >6.4 glycemic control for adults with diabetes: <7.0 Performed By: #### A 1C [facility] #### [place] [id number] [facility] MG MAMM SCREEN 3D GISELA CADon 05-28-2021 MG MAMM SCREEN 3D GISELA CAD Patient: DACIA SPRAGUE Exam Date: 05/28/2021 : 1940 Gender:F Ordering : DR DANAE GRANT M.D. Admission #: [id number] Family : Order #: [id number] CLICK HERE TO VIEW EXAM RADIOLOGY REPORT [...] leukemia cancer at age 24. LOCATION: [facility] BREAST COMPOSITION: Heterogeneously dense,which may obscure small [...] MD on 05/29/2021 at 07:25 Normal [facility] XR DEXA BONE DENSITYon 05-28 XR DEXA [...] MARKY BEAL Date: 2021-05-28 14:52 Normal [facility] Initial Visit (Orthopaedic S urgery)on 10-26-2019 Initial Visit (Orthopaedic Surgery) Chief Complaint New patient visit for scoliosis of lumbar spine. -MM History of Present Illnessretirend woman [facility] [place]. Seen at the request of self for [...] She has been evaluated by 2 neurologists, PMAADITIR,, and pain management for epidural injection without [...] day for postoperative care.Maximilian Grover D.O.glsDictated: 05/16/2018 #[id number]: 05/17/2018 #[id number]: Maximilian Grover D.O. [facility] Comment on above: Result Comment: Elec tronically Signed By: Maximilian Grover DO\.br\Date and Time Signed: 06/02/18 11:27 EST Coding Summary.on 05-17-2018 Coding Summary. CODING DATE: 018 FINAL [facility] STATUS: Home (Routine DC) PAYOR: Medicare APC DESCRIPTION 5491 Level 1 Intraocular Procedures ADMIT DX: REASON FOR VISIT DX: H25.11 Age-related nuclear cataract, right eye FINAL DX: PRINCIPAL: H25.11 Age-related nuclear cataract, right eye SECONDARY: H25.011 Cortical age-related cataract, right eye Z98.42 Cataract extraction status, left eye Z96.1 Presence of intraocular lens PYMT PROC APC STAT DESCRIPTION DOCTOR NAME DATE [id number] J1 Extracapsular cataract Maximilian Grover DO 05/16/2018 [...] Scha[place]er Date Saved: 05/17/2018 11:16 am Normal [facility] History and Physicalon 05-16 History and Physical [...] in the near future.Maximilian Grover D.O.glsDictated: 05/15/2018 #[id number] 05/16/2018 #[id number]: Maximilian Grover D.O. [facility] Comment on above: Result Comment: Elec tronically Signed By: Maximilian Grover DO\.br\Date and Time Signed: 05/16/18 07:20 EST Inpatient Patient Summaryon 05-16-2018 [facility] InstructionsPERSON INFORMATION Name: DACIA SPRAGUE PHYSICIANS Admitting Physician: Maximilian Grover DOAttending Physician: Maximilian Grover DO PCP: Narda GRANT MD Diagnosis: Cataract Comment: PATIENT EDUCATION INFORMATIONInstructions :REILLY- After Surgery Eye (Custom)Medication Leaflets:Follow up:With: Address: When: Maximilian Grover [facility] [address], [address] [place], [place] [id number] Business (1) Within 1 to 2 days MEDICATION LISTComment: [facility] Main OR Intraoperative Recor don 05-16-2018 Main OR Intraoperative Record IntraOp Document Type FT Summary Primary Physician: Maximilian Grover DO Finalized Date/Time: 05/16/18 14:53:37 Pt. Name: DACIA SPRAGUE D.O.B./Sex: 1940 Female Med Rec #: [id number] Physician: Maximilian Grover DO Financial #: [id number] Pt. Type: A Room/Bed: [facility] Admit/Disch: 05/16/18 06:43:00 - 05/16/18 09:50:00 Institution: Case Times FT Entry 1 Patient Times In Room 05/16/18 08:51:00 Out Room 05/16/18 09:13:00 Procedure Times Start 05/16/18 09:00:00 Stop 05/16/18 09:11:00 Anesthesia Times Last Modified By: Blessing Stacy CST 05/16/18 09:12:54 General Comments: 05/16/18 Chart opened to review and send charges Jeff Stacy CST Case Attendance FT Entry 1 Entry 2 Entry 3 Case Attendee Maximilian Grover DO RN, Jorgito Clay RN, Kadi Aguilar Role Performed Surgeon - Primary Vacuum Truck Driver - Primary Vacuum Truck Driver - Primary Time In 05/16/18 08:56:00 05/16/18 [...] and tissue Entry 1 Skin Integrity Intact, Wilcox, Warm, and Skin Abnormality No Dry Outcomes [...] RN Patient Status Stable Skin. Condition Intact, Wilcox, Warm, and Dry Airway Maintenance Oxygen in [...] safely administered during the perioperative period For [facility] please see scanned medication reconcilliation form for medications used at the field during the procedure. Implant Log FT Pre-Care Text: Records devices implanted during the operative or invasive procedure Entry 1 Implant/Explant Implant Implant Identification Description YOVANI [id number] 12.50MM Serial Number [id number] 24.00 [[id number]] Lot Number [id number] Principal Process Engineer [employer] Catalog ?# [id number] [F] Size 24.0 Expiration Date 04/28/20 Usage [...] 09:13 Blessing Stacy CST 05/16/18 14:53 Normal [facility] Main OR PACU II [facility] Main OR PACU II Record PACU Phase II Doc ument Type FT Summary Primary Physician: Maximilian Grover DO Finalized Date/Time: 05/16/18 10:30:32 Pt. Name: OLGADACIA/Sex: 1940 Female Med Rec #: [id number] Physician: Maximilian Grover DO Financial #: [id number] Pt. Type: A Room/Bed: [facility] HOSPITAL Admit/Disch: 05/16/18 06:43:11 - Institution: Case Times [...] By: Shu Chung RN 05/16/18 10:30 Normal [facility] Main OR Preoperative Recordo n 05-16-2018 Main OR Preoperative Record PreOp Document Type FT Summary Primary Physician: Maximilian Grover DO Finalized Date/Time: 05/16/18 08:54:03 Pt. Name: DACIA SPRAGUE/Sex: 1940 Female Med Rec #: [id number] Physician: Maximilian Grover DO Financial #: [id number] Pt. Type: A Room/Bed: [facility]06/30 Admit/Disch: 05/16/18 06:43:11 - Institution: Case Times [...] By: Jorgito Blount RN 05/16/18 08:54 Normal [facility] Main OR Preoperative Record Holding Area Document Type FT Summary Primary Physician: Maximilian Grover DO Finalized Date/Time: 05/16/18 07:10:50 Pt. Name: OLGADACIA./Sex: 1940 Female Med Rec #: [id number] Physician: Maximilian Grover DO Financial #: [id number] Pt. Type: A Room/Bed: [place] [address] Admit/Disch: 05/16/18 06:43:11 - Institution: Case Times [...] No Patient states Yes Comment - Adult VAIBHAV-SPOUSE postop adult Supervision supervision available Case Cancelled in No Holding Area see comments below for reason Last Modified By: Silvia Munoz RN 05/16/18 07:10:46 Finalized By: Silvia Munoz RN Document Signatures Signed By: Silvia Munoz RN 05/16/18 07:10 Normal [facility] Patient Education - Texton 1 07-17-2017 Patient Education - Text [facility] Zora Grover.AFTER SURGERY [right eye] [left eye] RESTRICTIONS FOR [...] to surgical eye, six times today. Normal [facility] Progress Note-Physicianon Protein mass conc Patient: DACIA [...] Blood Loss: 0 ml. Complications: None. Normal [facility] Comment on above: Result Comment: Elec tronically Signed By: Lisa Grover DO.maritza\Date and Time Signed: 05/16/18 09:14 EST Vital Signs Date Time Vital Sign Value Performing Clinician Facility 04-11-2023 14:30-0500 Body height 149.86 cm Danae Grant Other [facility] Other 04-11-2023 14:30-0500 Body mass index (BMI) [Ratio] 21.89 kg/m2 Danae Grant Other [facility] Other 04-11-2023 14:30-0500 Body weight 49.17 kg Danae Grant Other [facility] Other 04-11-2023 14:30-0500 Diastolic blood pressure 68 mm[Hg] Danae Grant Other [facility] Other 04-11-2023 14:30-0500 Systolic blood pressure 142 mm[Hg] Danae Grant Other [facility] Other 02-08-2023 15:00-0400 Body height 149.86 cm Danae Grant Other [facility] Other 02-08-2023 15:00-0400 Body mass index (BMI) [Ratio] 21.61 kg/m2 Danae Grant Other [facility] Other 02-08-2023 15:00-0400 Body weight 48.54 kg Danae Grant Other [facility] Other 02-08-2023 15:00-0400 Diastolic blood pressure 71 mm[Hg] Danae Grant Other [facility] Other 02-08-2023 15:00-0400 Respiratory rate 12 /min Danae Grant Other [facility] Other 02-08-2023 15:00-0400 Systolic blood pressure 126 mm[Hg] Danae Grant Other [facility] Other Encounters Encounter Date Encounter Type Care Provider Facility Start: 02-20-2024 End: 02-20-2024 ambulatory Elisa Donohue MD Facility:[facility] Start: 02-06-2024 End: 02-06-2024 ambulatory Elisa Donohue MD Facility:[facility] Start: 01-10-2024 End: 01-10-2024 ambulatory ANKIT D [...] Available Start: 09-22-2023 End: 09-22-2023 ambulatory SHERYL WENGERD Not Available Start: 09-19-2023 End: 09-20-2023 ambulatory ENRIQUE RENE Not Available Start: 09-15-2023 End: 09-15-2023 ambulatory ENRIQUE RENE Not Available Start: 08-16-2023 End: 08-16-2023 ambulatory ANKIT HUMMELJ Not Available Start: 04-25-2023 End: 04-25-2023 ambulatory Danae Grant Other [facility] Other Start: 04-25-2023 Telephone encounter Danae Grant [facility] Start: 04-11-2023 End: 04-11-2023 ambulatory Danae Grant Other [facility] Other Start: 04-11-2023 Office outpatient visit 15 minutes Danae Grant [facility] Start: 03-28-2023 End: 03-28-2023 ambulatory Elisa Donohue MD Facility:[facility] Start: 03-07-2023 Telephone encounter Danae Grant [facility] Start: 03-07-2023 End: 03-07-2023 ambulatory Elisa Donohue MD [facility] Other Start: 02-11-2023 End: 02-11-2023 ambulatory Danae Grant Other [facility] Other Start: 02-11-2023 Telephone encounter Danae Grant [facility] Start: 02-08-2023 End: 02-08-2023 Departed Referred MD Danae Grant Work Phone: [facility] [place] Work Phone: Start: 02-08-2023 End: 02-08-2023 ambulatory MD Danae Grant Work Phone: [facility] Work Phone: Start: 02-08-2023 Office outpatient visit 15 minutes Danae MARINA [facility] Start: 01-15-2023 End: 01-15-2023 ambulatory Danae Grant Facility:[facility] Start: 01-15-2023 End: 01-15-2023 ambulatory MD Danae Grant Work Phone: [facility] Work Phone: Start: 01-15-2023 End: 01-15-2023 Departed Referred MD Danae Grant Work Phone: [facility] Work Phone: Start: 10-01-2022 End: 10-01-2022 ambulatory Danae Grant Facility:[facility] Start: 10-01-2022 End: 10-01-2022 ambulatory MD Danae Grant Work Phone: [facility] Work Phone: Start: 10-01-2022 End: 10-01-2022 Patient encounter procedure MD Danae Grant Work Phone: [facility] [place] Work Phone: Start: 04-12-2022 End: 04-12-2022 ambulatory Danae Grant Facility:[facility] Start: 04-12-2022 End: 04-12-2022 ambulatory MD Danae Grant Work Phone: [facility] Work Phone: Start: 04-12-2022 End: 04-12-2022 Patient encounter procedure MD Danae Grant Work Phone: [facility] [place] Start: 02-19-2022 ambulatory EVARISTO MAGGI Facility :[facility] Start: 11-20-2021 End: 11-21-2021 ambulatory EVARISTO MAGGI Facility:[facility] Start: 10-23-2021 End: 10-23-2021 ambulatory EVARISTO MAGGI Facility:[facility] Start: 10-09-2021 End: 10-10-2021 ambulatory EVARISTO TAY Facility:[facility] Start: 05-28-2021 End: 05-29-[address] DANAE GRANT Facility:[facility] Start: 05-16-2018 End: 05-16-2018 Patient encounter procedure Maximilian Grover [place] [place] Date Procedure Procedure Detail Performing Clinician Start: 10-01-2022 X-ray of lumbar spin e, four or more views MD Danae Grant Work Phone: Plan of Treatment Date Care Activity Detail Author Start: 02-08-2023 Bacteria identified in Urine by Culture Urine Culture [facility] Start: 10-01-2022 [facility] Start: 04-12-2022 [facility] Glucose measurement estimated from glycated hemoglobin [facility] Work Phone: Glucose measurement estimated from glycated hemoglobin [facility] Hemoglobin A1c/Hemoglobin.total in Blood [facility] Work Phone: Hemoglobin A1c/Hemoglobin.total in Blood [facility] Immunizations Immunization Date Immunization Notes Care Provider Fa cility 02-08-2023 influenza, high dose seasonal, preservative-free Danae Grant Other [facility] Other 04-30-2021 COVID-19 Vaccine Moderna - Documentation Purposes Only Danae Grant Other [facility] Other 03-19-2021 influenza virus vaccine, split virus (incl. purified surface antigen) Danae Grant Other [facility] Other 09-18-2020 COVID-19 Vaccine Pfi zer - Documentation Purposes Only Danae Grant Other [facility] Other 08-29-2020 COVID-19 Vaccine Pfi zer - Documentation Purposes Only Danae Grant Other [facility] Other 03-06-2020 influenza virus vaccine, split virus (incl. purified surface antigen) Danae Grant Other [facility] Other 03-29-2019 pneumococcal polysaccharide vaccine, 23 valent Danae Grant Other [facility] Other 02-23-2019 influenza virus vaccine, split virus (incl. purified surface antigen) Danae Grant Other [facility] Other 03-07-2018 influenza virus vaccine, split virus (incl. purified surface antigen) Danae Grant Other [facility] Other 02-10-2017 influenza virus vaccine, split virus (incl. purified surface antigen) Danae Grant Other [facility] Other 05-20-2016 influenza virus vaccine, split virus (incl. purified surface antigen) Danae Grant Other [facility] Other 05-20-2016 influenza, injectabl e, quadrivalent, preservative free Danae Grant Other [facility] Other 05-06-2015 pneumococcal conjuga te vaccine, 13 valent Danae Grant Other [facility] Other 03-11-2015 influenza virus vaccine, split virus (incl. purified surface antigen) Danae Grant Other [facility] Other 02-20-2014 tetanus and diphther ia toxoids, adsorbed, preservative free, for adult use (5 Lf of tetanus toxoid and 2 Lf of diphtheria toxoid) Danae Grant Other [facility] Other 04-04-2013 tetanus and diphther ia toxoids, adsorbed, preservative free, for adult use (5 Lf of tetanus toxoid and 2 Lf of diphtheria toxoid) Danae Grant Other [facility] Other Payers Date Payer Category Payer Medicare 2022 Unknown 2022 Self-pay [id number] 2018 Medicare [id number] 1959 Medicare [id number] 1960 Unknown [id number] 1940 Unknown [id number] 2.16.84 0.1.235210.3.579.2.727 1940 Unknown [id number] 2.16.84 0.1.477482.3.579.2.593 1940 Unknown [id number] 2.16.84 0.1.185055.3.579.2.593 1940 Unknown [id number] 2.16.84 0.1.508468.3.579.2.593 1940 Unknown [id number] 2.16.84 0.1.611470.3.579.2.593 1940 Unknown [id number] 2.16.84 0.1.285405.3.579.2.593 1940 Unknown [id number] 2.16.84 0.1.940775.3.579.2.1259 1940 Unknown [id number] 2.16.84 0.1.048185.3.579.2.1259 1940 Unknown [id number] 2.16.84 0.1.858837.3.579.2.1259 1940 Unknown [id number] 2.16.84 0.1.227889.3.579.2.1259 1940 Unknown [id number] 2.16.84 0.1.105634.3.579.2.1259 1940 Unknown [id number] 2.16.84 0.1.720252.3.579.2.1259 1940 Unknown [id number] 2.16.84 0.1.938865.3.579.2.1259 1940 Unknown [id number] 2.16.84 0.1.400164.3.579.2.1258 1940 Unknown [id number] 2.16.84 0.1.628598.3.579.2.1258 1940 Unknown [id number] 2.16.84 0.1.034902.3.579.2.1258 1940 Unknown [id number] 2.16.84 0.1.445485.3.579.2.1258 1940 Unknown [id number] 2.16.84 0.1.916851.3.579.2.1258 1940 Unknown [id number] 2.16.84 0.1.357614.3.579.2.1258 1940 Unknown [id number] 2.16.84 0.1.454716.3.579.2.1258 1940 Unknown [id number] 2.16.84 0.1.732628.3.579.2.1258 1940 Unknown [id number] 2.16.84 0.1.959350.3.579.2.1258 1940 Unknown [id number] 2.16.84 0.1.702598.3.579.2.1258 1940 Unknown [id number] 2.16.84 0.1.537105.3.579.2.1258 1940 Unknown [id number] 2.16.84 0.1.003994.3.579.2.1258 1940 Unknown [id number] 2.16.84 0.1.609684.3.579.2.1258 1940 Unknown [id number] 2.16. 840.1.390265.3.579.2. 1940 Unknown [id number] 2.16. 840.1.253363.3.579.2.196 1940 Unknown [id number] 2.16. 840.1.602883.3.579.2.196 1940 Unknown [id number] 2.16. 840.1.794201.3.579.2.196 Medicare [id number] 2.1 6.840.1.541602.19 Medicare [id number] 2.16 .840.1.614116.19 Unknown [id number] 2.16.8 40.1.781870.3.579.2.531 Unknown [id number] 2.16.8 40.1.935367.3.579.2.531 Unknown [id number] 2.16.8 40.1.357734.3.579.2.531 Unknown [id number] 2.16.8 40.1.211708.3.579.2.531 Social History Date Type Detail Facility Tobacco smoking status NHIS Unknown if ever smoked [facility] Work Phone: Start: 1940 Sex Assigned At Female F [facility] Sex Assigned At Sex Assigned At Bir th [facility] Other Evaluation note 04-11-2023 Note Date & Type Note Facility 04-11-2023 Evaluation note Encounter Date Diagnosis Assessment Notes Mar, Mixed stress and urge urinary incontinence (ICD-10 - N39.46) States improvement on myrbetriq, continue at 25mg dose Mar, Abnormal MRI, lumbar spine (ICD-10 - R93.7) will contact pain mgmt with her concerns. [facility] Other Evaluation note 03-07-2023 Note Date & Type Note Facility 03-07-2023 Evaluation note Encounter Date Diagnosis Assessment Notes Feb, Mixed stress and urge urinary incontinence (ICD-10 - N39.46) [facility] Other Evaluation note 02-08-2023 Note Date & [...] in a few weeks if not improved. [facility] Other Evaluation note Note Date & Type Note Facility Evaluation note No assessment information availa [facility] Work Phone: Evaluation note Note Date & Type Note Facility Evaluation note No Information [email or web address] [facility] [employer] Other History general Narrative - Reported Note Date & Type Note Facility History general Narrative - Reported Type Medical History SCOLIOSIS Medical History Parkinson Surgical History D&C Hospitalization History SEE ABOVE [facility] Other Summary Purpose Family History No Family [...] section and content) DATE CREATED [facility]03/[facility] DATE CREATED AUTHOR AUTHOR'S ORGANIZ ATION 10/26/2019 [employer] DATE CREATED AUTHOR AUTHOR'S ORGANIZ ATION 11/26/2021 [facility] DATE CREATED AUTHOR AUTHOR'S ORGANIZ ATION 02/16/2023 [facility] DATE CREATED AUTHOR AUTHOR'S ORGANIZ ATION 01/12/2024 [facility] DATE CREATED AUTHOR AUTHOR'S ORGANIZ ATION 02/27/2024 [facility] Care Teams (unrecognized sec tion and content) Team Status: Inactive Member Role Status Dates Danae Grant MD Primary Care Provider, Referring Tony pleitez Active Ankit Resendiz MD Attending Provider Active Team Status: Active Member Role Status Dates Danae Grnat MD Primary Care Provider Active Team Status: Inactive Member Role Status Dates Danae Grant MD Primary Care Provider Active Ankit Resendiz MD Attending Provider Active Team Status: Inactive Member Role Status Dates Danae Grant MD Primary Care Provider Active Outreach [facility] Attending Provider Active Team Status: Inactive Member [...] BE BASED ON THE PRIMARY CLINICAL RECORDS. [facility]. provides no warranty or guarantee of the accuracy or completeness of information in this document.
[2024-03-12 10:54] VITALS: BP 148/76; PULSE 78; TEMP 36.1; O2SAT 96
[2024-03-12] MEDS: BUPIVACAINE HCL 0.25% PF 25 MG/10 ML VIAL 5 ML INJ (11:34)
[2024-03-12] MEDS: TRIAMCINOLONE ACETONIDE 40 MG/ML VIAL INJ (11:35)
[2024-03-12] MEDS: LIDOCAINE HCL 2% 400 MG/20 ML MDV 15 ML INJ (11:35)
[2024-03-12] MEDS: IOHEXOL 240 MG/ML - 10 ML VIAL INJ (11:35)
[2024-03-12 11:36] VITALS: BP 155/68; BP 164/73; PULSE 80; PULSE 85; O2SAT 96
--- NOTE | 2024-03-12 11:36 | W.PM.PROCNOT ---
Date of procedure: 03/12/24 Pre-op diagnosis: Pain due to right sacroiliitis Post-op diagnosis: same as pre-op Procedure: Procedure: Right sacroiliac joint injection Medications: Bupivacaine 0.25% 3cc, kenalog 40mg After informed consent was obtained, the patient was brought to the medical procedure unit and placed in the prone position, when a timeout was completed verifying correct patient, procedure, site, positioning, implant, and/or special equipment.? The skin overlying the area was prepped and draped in standard sterile fashion using alcohol.? A 25-gauge needle was inserted towards the right sacroiliac joint under direct fluoroscopic imaging.? Needle tip was advanced until the joint was encountered.? We instilled a total of 2 mL of solution.? Postoperatively needles were removed.? The patient tolerated the procedure well without complication.? The patient reported reduction in pain symptoms postoperatively. Anesthesia: Local Surgeon: Elisa Donohue Pathology: none sent Condition: stable Disposition: no change
== END 2024-03-12 11:47 | disposition home or self-care (01) ==
LOC: SURGOUT 10:29
PROVIDERS: PCP Family Medicine; Visit Provider Anesthesiology
DX: M46.1 Sacroiliitis, not elsewhere classified (principal)
CPT/HCPCS: 27096; J0665; J3301; Q9966

== ENCOUNTER 2024-03-22 14:34 | Outpatient (OUT) | payer MEDICARE, OTHER, SELFPAY ==
--- NOTE | 2024-03-22 14:58 | P.CN_ITS ---
Consult Note: HPI Data of Consult Patient: known to practice within the last 3 years Consult date: 02/06/24 Requesting Physician: Farzaneh Syed NP Primary Care Provider: Danae Wallace MD Consult Narrative Reason for consult: midback, low back, right leg pain Narrative: 83yof who presents for assessment. notes worsening pain in midback, low back, right leg. recently has had several falls, where she has acute pain. right leg tends to feel weak. 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 continues in a series of provider directed home exercises >6 weeks, without benefit. uses tylenol prn. recently underwent right L4-5 L5-S1 TFESI with mild relief ongoing and right SIJ injection with mild relief. she failed tylenol #3, noticed drowsiness. recently prescribed hydrocodone-acetaminophen 5-325mg daily PRN with significant improvement. cc:: CC: Farzaneh Syed NP Review of Systems ROS Status of ROS 10 or more systems reviewed and unremark able except as noted in history and below Musculoskeletal Reports: back pain PFSH PFSH Medical History Parkinson disease ?G20 - Parkinson's disease (ICD-10) Surgical History History of phacoemulsification of cataract of both eyes with intraocular lens implantation ?Z98.41 - Cataract extraction status, right eye (ICD-10) ?Z98.42 - Cataract extraction status, left eye (ICD-10) ?Z96.1 - Presence of intraocular lens (ICD-10) Meds Home Medications and Allergies Home Medications ?Medication ?Instructions ?Recorded ?Confirmed ?Type acetaminophen 650 mg 650 mg PO Q8H PAIN 11/08/22 03/12/24 History tablet,extended release (8 Hour Pain Reliever) ascorbic acid (vitamin C) 1,000 mg 1 g PO DAILY 11/08/22 03/12/24 History tablet (Vitamin C) calcium 100 mg capsule mg PO .QD 11/08/22 History carbidopa 25 mg-levodopa 100 mg 1 tab PO QID 11/08/22 03/12/24 History tablet (Sinemet) cholecalciferol (vitamin D3) 50 50 mcg PO DAILY 11/08/22 03/12/24 History mcg (2,000 unit) tablet (Vitamin D3) diphenhydramine 25 2 tab PO .HS PRN sleep 11/08/22 03/12/24 History mg-acetaminophen 500 mg tablet (Tylenol PM Extra Strength) magnesium 200 mg tablet 200 mg PO DAILY 11/08/22 03/12/24 History multivitamin 1 tab PO DAILY 11/08/22 03/12/24 History zinc 50 mg tablet 50 mg PO DAILY 11/08/22 03/12/24 History entacapone 200 mg tablet 200 mg PO BID 01/25/23 03/12/24 History hydrocodone 5 mg-acetaminophen 325 1 tab PO DAILY PRN pain 02/29/24 03/12/24 History mg tablet Allergies Allergy/AdvReac Type Severity Reaction Status Date / Time No Known Drug Allergies Allergy Verified 03/12/24 11:03 Exam Narrative Exam Narrative: Psych-alert and oriented x 3. Attentive and appropriate, constitutionally normal, displays normal mood and affect per situation. There are no obvious deficits in memory, reasoning, or intellect.? Skin-no obvious rashes, bruising, erythema noted to the patient's area of pain.? Extremities- extremities are warm with minimal edema and palpable pulses. Lumbar-tenderness to palpation noted in the lumbar spine and paraspinal muscul ature. Pain is elicited with flexion, extension, and lateral rotation of the lumbar spine. Range of motion is diminished with these motions. Facet loading maneuvers are positive.? right sij negative keila(patricks), gaenslens, thigh thrust, compression test Strength-noted to be unremarkable Sensory-no notable sensory deficits in the bilateral lower extremities to touch or pinprick in all dermatomal distributions Coordination remains intact.? Gait remains non-antalgic. Results Additional Findings Additional findings: If on a controlled substance or opioids, I have checked an [place]AR[place] report on this patient and there are no aberrancies noted in the prescribing history.??If on a controlled substance or opioid a drug screen was completed and reviewed within the last year, and if there has not been a drug screen completed we ordered one today to monitor higher risk, state monitored pain medication use. As part of providing excellent, safe, comprehensive care, the following was completed at our patient's visit: 1. A medication reconciliation and review to ensure accurate knowledge of current/active medications, including asking our patients to inform us about any [id number]-[id number] medications or herbal remedies/nutritional supplements/alternative remedies. 2. A review to specifically ensure our patients have had annual screening for screening for depression, screening for tobacco use, and screening for unhealthy alcohol use. For concerning screenings had a discussion with the patient, provided patient education, and recommended follow-up with primary care provider when appropriate. If patient noted with a risk of falling, they received education on strength, gait, and balance training to prevent future risk of falling. Assessment and Plan Assessment and Plan (1) Sacroiliac joint pain: Assessment and Plan: improvement on exam (2) Lumbar stenosis with neurogenic claudication: (3) Lumbar spondylosis: Assessment and Plan: could consider right L1-2 L2-3 MBB x2 working towards RFA in the future (4) Lumbar scoliosis: Assessment and Plan: unfortunately with degree of curvature she is unlikely to have significant relief from interventional therapy Plan decrease hydrocodone-acetaminophen 5-325mg 1/2 tab daily PRN moderate to severe pain, risks vs benefits reviewed encouraged NSAIDs continue tylenol f/u 2 months
--- OUTSIDE RECORDS SUMMARY | 2024-03-22 14:58 | XMS_ITS | CCD ---
Author Organization [facility] Care Team Providers Care Leather Grader Name Role Phone Zahler, Maximilian Unavailable Unavailable Zahler, Maximilian Unavailable Unavailable Kimhler, Maximilian Unavailable Unavailable NATALIE [phone] UNKNOWN Unavailable Unavailable RUDY, DR DANAE Rosa Admitting Unavailable GRANT, DR DANAE Rosa Attending Unavailable GRANT, DR DANAE Rosa Primary Care Unavailable WEST, DR PING Valentin Consulting Unavailable ZIEBER, DR MARKY Iraheta Consulting Unavailable RUDY, DR [...] Provider MD Danae Grant Primary Care Provider [phone] MD Ankit Resendiz Attending Provider [phone] MD Danae Grant Primary Care Provider Community, Outreach Attending Provider Danae Grant Unavailable MD Danae Grant Attending Provider NO FAMILY, PHYSICIAN Primary Care Unavailable Grant, Danae E Admitting Unavailable Rudy Danae E Attending Unavailable Grant, Danae E Primary Care Unavailable Grant, Danae E Referring Unavailable Bej, Ankit D Admitting Unavailable Bej, Ankit D Attending Unavailable Rudy Danae E Primary Care Unavailable BejAnkit D Admitting Unavailable Bej, Ankit D Attending Unavailable Rudy Danae E Primary Care Unavailable Community, Outreach Admitting Unavailable Community, Outreach Attending Unavailable Giedraitis , Andrius Vytautrenny Attending Unavailable Giedraitis MD, Andrius Vytautas Attending Unavailable Giedraitis MD, Andrius Vytautas Attending Unavailable Giedraitis MD, Andrius Vytautas Attending Unavailable Danae Grant MD Primary Care Provider ANKIT RESENDIZ Attending Unavailable RENE, ENRIQUE Attending Unavailable BEJANKIT D Referring Unavailable RENE, ENRIQUE Attending Unavailable BEANKIT Aguilar D Referring Unavailable WENGERD, SHERYL Attending Unavailable BEJANKIT D Referring Unavailable WENGERD, SHERYL Attending Unavailable BEJANKIT D Referring Unavailable RENE, ENRIQUE Attending Unavailable BEJANKIT D Referring Unavailable RENE, ENRIQUE Attending Unavailable BEJ, ANKIT D Referring Unavailable WENGERD, SHERYL Attending Unavailable BEJ, ANKIT D Referring Unavailable RENE, ENRIQUE Attending Unavailable BEJ, ANKIT D Referring Unavailable BEJ, ANKIT D Attending Unavailable WENGERD, SHERYL Attending Unavailable BEJ, ANKIT [...] Referring Unavailable BEJ, ANKIT D Attending Unavailable LISA ARMENDARIZ Attending Unavailable Allergies Allergy Classification Reported Allergen(s) Allergy Type Date of Onset Reaction(s) Facility (1 source) No Known Medication Allergies; Translations: [No Known Medication Allergies] Propensity to adverse reactions (disorder) [facility] Repository Medications Current Medications Medication Drug Class(es) Dates Sig (Normalized) Sig (Original) Acetaminophen (3 sources) Acetaminophen (TYLENOL ARTHRITIS PAIN PO) Tylenol Arthritis Pain Active ascorbic acid 1000 mg oral tablet (3 sources) Vitamin C Ascorbic Acid (vitamin C) 1000 MG tablet 1 (one) time each day at the same time. Active Aspirin (8 sources) Platelet Aggregation Inhibitor, Nonsteroidal Anti-inflammatory Drug BABY ASPIRIN PO Take by mouth Active take 0.5 tablet by mouth once da isabella Aspirin 300 MG 1/2 tablet Orally Once a day Active Calcium (5 sources) Phosphate Binder, Calcium Calciu m 250 MG as directed Orally Active Calcium Carb-Cholecalciferol (CALCIUM + D3 PO) (3 sources) Calcium Carb-Cholecalciferol (CALCIUM + D3 PO) Calcium + D3 Active carbidopa 25 mg / levodopa 100 mg oral tablet (8 sources) Aromatic Amino Acid Decarboxylation Inhibitor, Aromatic Amino Acid Start: 01-10-2024 carbidopa-levodopa (Sinemet) 25-100 MG tablet Indications: Parkinson disease (CMS/HCC) 1.5 tabs 4 times daily at 09, 1300, 1700, 2100 180 tablet 5 01/10/2024 Active take 1 tablet by mouth every six hours Sinemet 10-100 MG 1 tablet Orally four times a day Active entacapone 200 mg oral tablet (6 sources) Apqbqcmq-W-Ktibmuuyudewmuuzd Inhibitor Start: 02-28-2024 entacapone (Comtan) 200 MG tablet Indications: Parkinson disease (CMS/HCC) 1 tab 4 times daily (w/Sinemet) 120 tablet 6 02/28/2024 Active take 1 tablet by mouth every six hours Entacapone 200 MG 1 tablet Orally qid Active Fish Oils (5 sources) take 1 capsule by [facility] twice daily Fish Oil 500 MG 1 capsule Orally Twice a day Active Magnesium (8 sources) Start: 07-25-2023 magnesium 200 MG tablet Daily 07/25/2023 Active take 2 tablets by [facility] twice daily at mealtime Magnesium 100 MG 2 tablets with meals Orally Twice a day Active 24 hr mirabegron 25 mg extended release oral tablet (4 sources) beta3-Adrenergic Agonist Start: 02-15-2023 take 1 tablet by mouth every twenty-four hours Myrbetriq 25 MG 1 tablet Orally Once a day for 30 day(s) Jan, Active Multiple Vitamin (MULTI VITAMIN DAILY PO) (3 sources) Multiple Vitamin (MULTI VITAMIN DAILY PO) Multi Vitamin Daily Active Multivitamin preparation (5 sources) Multivitamin Active tiZANidine 2 mg oral tablet (3 sources) Central alpha-2 Adrenergic Agonist Start: 01-10-2024 End: 07-08-2024 take 1 tablet by mouth at bedtime tiZANidine (Zanaflex) 2 MG tablet Indications: Lumbar paraspinal muscle spasm Take 1 tablet (2 mg) by mouth at bedtime 30 tablet 5 01/10/2024 07/08/2024 Active vitamin B12 (4 sources) Vitamin B12 Cyanocobalamin (VITAMIN B-12 CR PO) Vitamin B12 Active Vitamin B12 100 MCG as directed Orally [...] 1 tablet Orally Once a day Active zinc gluconate 30 mg oral tablet (3 sources) Start: 07-25-2023 zinc 30 MG tablet Daily 07/25/2023 Active Problems Active Problems Problem Classification Problem Date Documented Date Episodic/Chronic Genitourinary symptoms and ill-defined conditions (9 sources) Mixed urinary incontinence; Translations: [Mixed incontinence] Onset: 02-08-2023 Chronic Other acquired deformities (3 sources) Scoliosis of lumbar spine; Translations: [Scoliosis, unspecified] Onset: 01-02-2023 01-02-2023 Chronic Other acquired deformities (5 sources) Leg length inequality; Translations: [Unequal limb length (acquired), unspecified site] Episodic Other and unspecified benign neoplasm (2 sources) Melanocytic nevus of trunk; Translations: [Melanocytic nevi of trunk] 03-15-2024 Episodic Other nervous system disorders (1 source) Polyneuropathy, unspecified; Translations: [Polyneuropathy, unspecified] Onset: 04-12-2022 Chronic Other nervous system disorders (3 sources) Polyneuropathy; Translations: [Polyneuropathy, unspecified] Onset: 01-02-2023 01-02-2023 Chronic Other nervous system disorders (5 sources) Abnormal gait; Translations: [Other abnormalities of gait and mobility] Episodic Other screening for suspected conditions (not mental disorders or infectious disease) (2 sources) Encounter for screening mammogram for malignant neoplasm of breast; Translations: [Abnormal findings on diagnostic imaging of other parts of musculoskeletal system] Onset: 06-04-2021 Episodic Other skin disorders (2 sources) Seborrheic keratosis; Translations: [Other seborrheic keratosis] 03-15-2024 Episodic Other skin disorders (2 sources) Lentiginosis; Translations: [Other melanin hyperpigmentation] 03-15-2024 Episodic Parkinson`s disease (8 sources) Parkinson's disease; Translations: [Parkinson's disease] Onset: 01-02-2023 01-02-2023 Chronic Spondylosis; intervertebral disc disorders; other back problems (1 source) Spondylosis without myelopathy or radiculopathy, lumbar region; Translations: [SPONDYLS W/O MYELO-/RADICULOP LUMB] Onset: 11-25-2021 Chronic Unclassified (3 sources) LOW BACK PAIN, UNSPECIFIED; Translations: [LOW BACK PAIN, UNSPECIFIED] Onset: 11-25-2021 Past or Other Problems Problem Classification Problem Date Documented Date Episodic/Chronic Other connective tissue disease (3 sources) Spasm of cervical paraspinous muscle; Translations: [Other muscle spasm] Onset: 01-02-2023 01-02-2023 Episodic Other connective tissue disease (3 sources) Other symptoms and signs involving the musculoskeletal system; Translations: [Other musculoskeletal symptoms referable to limbs] Onset: 09-15-2023 09-15-2023 Episodic Residual codes; unclassified (4 sources) Asymptomatic menopausal state; Translations: [ASYMPTOMATIC MENOPAUSAL STATE] Onset: 05-28-2021 Episodic Residual codes; unclassified (1 source) Family history of malignant neoplasm of breast; Translations: [FAMILY HX MALIG NEOPLASM OF BREAST] Onset: 06-04-2021 Episodic Residual codes; unclassified (1 source) Family history of leukemia; Translations: [FAMILY HISTORY OF LEUKEMIA] Onset: 06-04-2021 Episodic Spondylosis; intervertebral disc disorders; other back problems (4 sources) Sacrococcygeal disorders, not elsewhere classified; Translations: [Spasm of muscle of lower back] Onset: 11-25-2021 01-02-2023 Episodic Unclassified (1 source) LOW BACK PAIN, UNSPECIFIED; Translations: [LOW BACK PAIN, UNSPECIFIED] Onset: 11-20-2021 Results Test Name Value Interpretation Reference Range Facility Urinalysis - DIPSTICKon 01-28 Appearance (U) cloudy [employer] Other Bilirubin Ql (U) small [facility] [employer] Other Color (U) orange [employer] Other Glucose Ql (U) Negative [facility] Other Hemoglobin Ql (U) Negative [place] [facility] Other Ketones Ql (U) off chart [facility] Other Leukocyte esterase Test strip Ql (U) off [facility] [employer] Other Nitrite Ql (U) Negative [facility] Other pH (U) trace [employer] Other Protein Ql (U) trace [facility] Other Specific gravity (U) [Rel density] 1.015 [employer] Other Urobilinogen (U) [Mass/Vol] 0.2 mg/dL [employer] Other Urinalysis - DIPSTICK [employer] Other Urine Cultureon 02-08-2023 Bacteria identified Cx Nom (U) <9,000 colonies/ml mixed bacterial skin contaminants 2 Days PERFORMED BY: [facility] [address] [facility] [place] [place] [address] PATHOLOGIST WELL BLOWER ISAIAS BAHENA M.D. Normal [facility] Comment on above: Performed By: #### C UU #### [facility] [address] Bacteria identified Cx Nom (U) [employer] Other Alanine aminotransferase [En zymatic activity/volume] in Serum or PlasmaOrdered By: [facility] on 01-15-2023 ALT [Catalytic activity/Vol] 11 U/L 7-52 [facility] Albumin [Mass/volume] in Ser um or Plasma by Bromocresol green (BCG) dye binding methoOrdered By: [facility] on 01-15-2023 Albumin BCG dye [Mass/Vol] 4.2 g/dL 3.5-5.7 [facility] Alkaline phosphatase [Enzyma tic activity/volume] in Serum or PlasmaOrdered By: [facility] on 01-15-2023 ALP [Catalytic activity/Vol] 35 U/L 34-104 [facility] Aspartate aminotransferase [ Enzymatic activity/volume] in Serum or PlasmaOrdered By: [facility] on 01-15-2023 AST [Catalytic activity/Vol] 28 U/L 13-39 [facility] Bilirubin.total [Mass/volume ] in Serum or PlasmaOrdered By: [facility] on 01-15-2023 Bilirubin [Mass/Vol] 0.4 mg/dL 0.3-1.0 [facility] CBC Without Differentialon 0 01-15-2023 Erythrocyte distribution width (RBC) [Ratio] 13.2 % Normal 11.9-15.3 [facility] Comment on above: Performed By: #### O RYLEE CMP, OUTREACH LIPID, CBCNOOUTREACH #### [facility] [address] Hematocrit (Bld) [Volume fraction] 34.7 % Normal 34.0-46.4 [facility] Comment on above: Performed By: #### O RYLEE CMP, OUTREACH LIPID, CBCNOOUTREACH #### [facility] [address] [place] [id number] [place] Hemoglobin (Bld) [Mass/Vol] 11.5 g/dL Low 11.8-15.4 [facility] Comment on above: Performed By: #### O RYLEE CMP, OUTREACH LIPID, CBCNOOUTREACH #### [facility] [address] [place] [id number] [place] MCH (RBC) [Entitic mass] 32.2 pg Normal 24.7-34.3 [facility] Comment on above: Performed By: #### O UTREACH CMP, OUTREACH LIPID, CBCNOOUTREACH #### [facility] [address] [place] [address] MCV (RBC) [Entitic vol] 97.2 fL Normal 80-100 [facility] Comment on above: Performed By: #### O UTREACH CMP, OUTREACH LIPID, CBCNOOUTREACH #### [address] Mean Corpuscular HGB Conc 33.1 g/dL Normal 32.0-35.0 [facility] Comment on above: Performed By: #### O UTREACH CMP, OUTREACH LIPID, CBCNOOUTREACH #### [address] Platelet mean volume (Bld) [Entitic vol] 7.9 fL Normal 6.3-10.7 [facility] Comment on above: Result Comment: PERF ORMED BY: [place] [address] PATHOLOGIST WELL BLOWER ISAIAS BAHENA M.D. Performed By: #### O UTREACH CMP, OUTREACH LIPID, CBCNOOUTREACH #### [address] Platelets (Bld) [#/Vol] 319 10*3/uL Normal 150-450 [facility] Comment on above: Performed By: #### O UTREACH CMP, OUTREACH LIPID, CBCNOOUTREACH #### [address] RBC (Bld) [#/Vol] 3.56 10*6/uL Low 3.60-5.00 [facility] Comment on above: Performed By: #### O UTREACH CMP, OUTREACH LIPID, CBCNOOUTREACH #### [address] WBC (Bld) [#/Vol] 9.3 10*3/uL Normal 3.8-11.6 [facility] Comment on above: Performed By: #### O UTREACH CMP, OUTREACH LIPID, CBCNOOUTREACH #### [facility] [address] [place] [address] [place] CMP Outreachon 01-15-2023 Albumin [Mass/Vol] 4.2 g/dL Normal 3.5-5.7 [facility] Comment on above: Performed By: #### O UTREACH CMP, OUTREACH LIPID, CBCNOOUTREACH #### [facility] [address] ALP [Catalytic activity/Vol] 35 U/L Normal 34-104 [facility] Comment on above: Performed By: #### O UTREACH CMP, OUTREACH LIPID, CBCNOOUTREACH #### [facility] [address] [place] [address] ALT [Catalytic activity/Vol] 11 U/L Normal 7-52 [facility] Comment on above: Performed By: #### O UTREACH CMP, OUTREACH LIPID, CBCNOOUTREACH #### [facility] [address] [place] [address] Anion gap [Moles/Vol] 12.5 mmol/L Normal 6.0-15.0 [facility] Comment on above: Performed By: #### O UTREACH CMP, OUTREACH LIPID, CBCNOOUTREACH #### [facility] [address] [place] [address] AST [Catalytic activity/Vol] 28 U/L Normal 13-39 [facility] Comment on above: Performed By: #### O UTREACH CMP, OUTREACH LIPID, CBCNOOUTREACH #### [facility] [address] [place] [address] [place] Bilirubin [Mass/Vol] 0.4 mg/dL Normal 0.3-1.0 [facility] Comment on above: Performed By: #### O UTREACH CMP, OUTREACH LIPID, CBCNOOUTREACH #### [facility] [address] [place] [address] Calcium [Mass/Vol] 9.9 mg/dL Normal 8.6-10.3 [facility] Comment on above: Performed By: #### O UTREACH CMP, OUTREACH LIPID, CBCNOOUTREACH #### [facility] [address] [place] [address] [place] Chloride [Moles/Vol] 104 mmol/L Normal 98-107 [facility] Comment on above: Performed By: #### O UTREACH CMP, OUTREACH LIPID, CBCNOOUTREACH #### [facility] [address] [place] [address] [place] CO2 [Moles/Vol] 26.8 mmol/L Normal 21.0-31.0 [facility] Comment on above: Performed By: #### O UTREACH CMP, OUTREACH LIPID, CBCNOOUTREACH #### [facility] [address] Creatinine [Mass/Vol] 0.76 mg/dL Normal 0.60-1.20 [facility] Comment on above: Performed By: #### O UTREACH CMP, OUTREACH LIPID, CBCNOOUTREACH #### [place] [address] [place] GFR/1.73 sq M.predicted MDRD (S/P/Bld) [Vol rate/Area] mL/min/{1.73_m2} Normal [facility] Comment on above: Performed By: #### O UTREACH CMP, OUTREACH LIPID, CBCNOOUTREACH #### [address] Glucose [Mass/Vol] 102 mg/dL High 70-100 [facility] Comment on above: Result Comment: [facility] Glucose Reference Range is dependent on time and content of last meal. Glucose of more than 200 mg/dL in a nonstressed, ambulatory subject supports the diagnosis of Diabetes Mellitus. ADA recommended reference range Performed By: #### O UTREACH CMP, OUTREACH LIPID, CBCNOOUTREACH #### [facility] [address] [place] [address] [place] Potassium [Moles/Vol] 4.3 mmol/L Normal 3.5-5.1 [facility] Comment on above: Performed By: #### O UTREACH CMP, OUTREACH LIPID, CBCNOOUTREACH #### [facility] [address] [place] [id number] [place] Protein [Mass/Vol] 6.6 g/dL Normal 6.4-8.9 [facility] Comment on above: Performed By: #### O UTREACH CMP, OUTREACH LIPID, CBCNOOUTREACH #### [facility] [address] [place] [phone] [place] Sodium [Moles/Vol] 139 mmol/L Normal 136-145 [facility] Comment on above: Performed By: #### O UTRLANNYCH CMP, OUTREACH LIPID, CBCNOOUTREACH #### [facility] [address] [place] [address] [place] Urea nitrogen [Mass/Vol] 28 mg/dL High 7-25 [facility] Comment on above: Performed By: #### O UTRSMILEY CMP, OUTREACH LIPID, CBCNOOUTREACH #### [facility] [address] [place] [address] [place] Calcium [Mass/volume] in Ser um or PlasmaOrdered By: [facility] on 01-15-2023 Calcium [Mass/Vol] 9.9 mg/dL 8.6-10.3 [facility] Carbon dioxide, total [Moles /volume] in Serum or PlasmaOrdered By: [facility] on 01-15-2023 CO2 [Moles/Vol] 26.8 mmol/L 21.0-31.0 [facility] Chloride [Moles/volume] in S zachary or PlasmaOrdered By: [facility] on 01-15-2023 Chloride [Moles/Vol] 104 mmol/L 98-107 [facility] Cholesterol [Mass/volume] in Serum or PlasmaOrdered By: [facility] on 01-15-2023 Cholesterol [Mass/Vol] 211 mg/dL 140-200 [facility] Comment on above: Chol less than 200 m g/dl low riskChol 201-239 mg/dl borderline riskChol 240 mg/dl and greater high risk Cholesterol in LDL Calc [Mas s/Vol]Ordered By: [facility] on 01-15-2023 Cholesterol in LDL [Mass/Vol] 121 mg/dL 0-100 [facility] Comment on above: LDL ATP III CLASSIFI CATIONLDL less than 100 mg/dL OptimalLDL 100-129 mg/dL Near or above optimalLDL 130-159 mg/dL Borderline highLDL 160-189 mg/dL HighLDL greater than 189 mg/dL Very high Cholesterol in VLDL Calc [Ma ss/Vol]Ordered By: [facility] on 01-15-2023 Cholesterol in VLDL [Mass/Vol] 11 mg/dL [facility] Creatinine [Mass/volume] in Serum or PlasmaOrdered By: [facility] on 01-15-2023 Creatinine [Mass/Vol] 0.76 mg/dL 0.60-1.20 [facility] Erythrocyte distribution wid th Auto (RBC) [Ratio]Ordered By: [facility] on 01-15-2023 Erythrocyte distribution width (RBC) [Ratio] 13.2 % 11.9-15.3 [facility] Glucose [Mass/volume] in Ser um or PlasmaOrdered By: [facility] on 01-15-2023 Glucose [Mass/Vol] 102 mg/dL 70-100 [facility] Comment on above: ADA recommended refe rence rangeRandom Glucose Reference Range is dependent on time and content of last meal. Glucose of more than 200 mg/dL in a nonstressed, ambulatory subject supports the diagnosis of Diabetes Mellitus. Hematocrit Auto (Bld) [Volum e fraction]Ordered By: [facility] on 01-15-2023 Hematocrit (Bld) [Volume fraction] 34.7 % 34.0-46.4 [facility] Hemoglobin [Mass/volume] in BloodOrdered By: [facility] on 01-15-2023 Hemoglobin (Bld) [Mass/Vol] 11.5 g/dL 11.8-15.4 [facility] Leukocytes [#/volume] correc glenda for nucleated erythrocytes in Blood by Automated counOrdered By: [facility] on 01-15-2023 WBC corrected for nucl RBC Auto (Bld) [#/Vol] 9.3 10*3/uL 3.8-11.6 [facility] Lipid Profile Outreach Cholesterol [Mass/Vol] 211 mg/dL High 140-200 [facility] Comment on above: Result Comment: Chol less than 200 mg/dl low risk Chol 201-239 mg/dl borderline risk Chol 240 mg/dl and greater high risk Performed By: #### O UTREACH CMP, OUTREACH LIPID, CBCNOOUTREACH #### [facility] [address] Cholesterol in HDL [Mass/Vol] 78 mg/dL Normal 23-92 [facility] Comment on above: Result Comment: HDL CHOL ATP-III CLASSIFICATION Cardiovascular Risk HDL > or equal to 60 mg/dL LOW HDL < 40 mg/dL HIGH Performed By: #### O UTREACH CMP, OUTREACH LIPID, CBCNOOUTREACH #### [facility] [address] Cholesterol.total/Chol esterol in HDL [Mass ratio] 2.7 {ratio} Normal <5.0 [facility] Comment on above: Result Comment: PERF ORMED BY: [place] [address] PATHOLOGIST WELL BLOWER ISAIAS BAHENA M.D. Performed By: #### O UTREACH CMP, OUTREACH LIPID, CBCNOOUTREACH #### [address] LDL Cholesterol,Calculated 121 mg/dL High 0-100 [facility] Comment on above: Result Comment: LDL ATP III CLASSIFICATION LDL less than 100 mg/dL Optimal LDL 100-129 mg/dL Near or above optimal LDL 130-159 mg/dL Borderline high LDL 160-189 mg/dL High LDL greater than 189 mg/dL Very high Performed By: #### O UTREACH CMP, OUTREACH LIPID, CBCNOOUTREACH #### [facility] [address] [place] [address] Triglyceride w/Reflex 59 mg/dL Normal 0-149 [facility] Comment on above: Result Comment: TRIG ATP III CLASSIFICATION TRIG less than 150 mg/dL Normal TRIG 150-199 mg/dL Borderline high TRIG 200-500 mg/dL High TRIG greater than 500 mg/dL Very high Standard traceable to the Center for Disease Conrtrol and Prevention (CDC) test method. Performed By: #### O UTREACH CMP, OUTREACH LIPID, CBCNOOUTREACH #### [facility] [address] VLDL CHOLESTEROL 11 mg/dL Normal [facility] Comment on above: Performed By: #### [facility] LIPID, CBCNOOUTREACH #### [facility] [address] MCH Auto (RBC) [Entitic mass ]Ordered By: [facility] on 01-15-2023 MCH (RBC) [Entitic mass] 32.2 pg 24.7-34.3 [facility] MCHC Auto (RBC) [Mass/Vol]Or dered By: [facility] on 01-15-2023 MCHC (RBC) [Mass/Vol] 33.1 g/dL 32.0-35.0 [facility] MCV Auto (RBC) [Entitic vol] Ordered By: [facility] on 01-15-2023 MCV (RBC) [Entitic vol] 97.2 fL 80-100 [facility] No Panel InformationOrdered By: [facility] on 01-15-2023 Estimated GFR (CKD-EPI) > 60.0 mL/Min [facility] Creatinine Clearance (Chem N/A [facility] Platelet mean volume Auto (B ld) [Entitic vol]Ordered By: [facility] on 01-15-2023 Platelet mean volume (Bld) [Entitic vol] 7.9 fL 6.3-10.7 [facility] Platelets Auto (Bld) [#/Vol] Ordered By: [facility] on 01-15-2023 Platelets (Bld) [#/Vol] 319 10*3/uL 150-450 [facility] Potassium [Moles/volume] in Serum or PlasmaOrdered By: [facility] on 01-15-2023 Potassium [Moles/Vol] 4.3 mmol/L 3.5-5.1 [facility] Protein [Mass/volume] in Ser um or PlasmaOrdered By: [facility] on 01-15-2023 Protein [Mass/Vol] 6.6 g/dL 6.4-8.9 [facility] RBC Auto (Bld) [#/Vol]Ordere d By: [facility] on 01-15-2023 RBC (Bld) [#/Vol] 3.56 10*6/uL 3.60-5.00 [facility] Serum or plasma anion gap de terminationOrdered By: [facility] on 01-15-2023 Anion gap [Moles/Vol] 12.5 mmol/L 6.0-15.0 [facility] Serum or plasma high density lipoprotein (HDL) cholesterol measurementOrdered By: [facility] on 01-15-2023 Cholesterol in HDL [Mass/Vol] 78 mg/dL 23-92 [facility] Comment on above: HDL CHOL ATP-III CLA SSIFICATION Cardiovascular RiskHDL > or equal to 60 mg/dL LOWHDL < 40 mg/dL HIGH Serum or plasma total choles terol/high density lipoprotein (HDL) cholesterol mass ratOrdered By: [facility] on 01-15-2023 Cholesterol.total/Chol esterol in HDL [Mass ratio] 2.7 {ratio} <5.0 [facility] Sodium [Moles/volume] in Ser um or PlasmaOrdered By: [facility]RE[facility] on 01-15-2023 Sodium [Moles/Vol] 139 mmol/L 136-145 [facility] Triglyceride [Mass/volume] i n Serum or PlasmaOrdered By: [facility] on 01-15-2023 Triglyceride [Mass/Vol] 59 mg/dL 0-149 [facility] Comment on above: TRIG ATP III CLASSIF ICATIONTRIG less than 150 mg/dL NormalTRIG 150-199 mg/dL Borderline highTRIG 200-500 mg/dL High TRIG greater than 500 mg/dL Very highStandard traceable to the Center for Disease Conrtrol and Prevention (CDC) test method. Urea nitrogen [Mass/volume] in Serum or PlasmaOrdered By: [facility] on 01-15-2023 Urea nitrogen [Mass/Vol] 28 mg/dL 7-25 [facility] A1C with Estimated Average G luon 10-01-2022 Glucose [Mass/Vol] 117 mg/dL Normal [facility] Comment on above: Result Comment: PERF ORMED BY: [place] [address] PATHOLOGIST WELL BLOWER ISAIAS BAHENA M.D. Performed By: #### A 1C [facility] #### [address] HbA1c (Bld) [Mass fraction] 5.7 % High 4.3-5.6 [facility] Comment on above: Result Comment: Incr eased risk for diabetes: 5.7 - 6.4 diabetes: >6.4 glycemic control for adults with diabetes: <7.0 Performed By: #### A 1C [facility] #### [place] [id number] [facility] spine min 4V*on XR lumbar spine min 4V* [facility] [place] [address] [place] [id number] XRay Report Signed Patient: Dacia Sprague MR#: [id number] : 1940 Acct:[id number] Age/Sex: 82 / F ADM Date: 10/01/22 Loc: XD Room: Type: [facility] Attending Dr: Ankit Resendiz MD Copies to: [...] Yaneli Neely M.D.10/01/2022 3:36 PM Dictation Location: [place] [address] Transcribed By: [facility] 10/01/22 1536 Dictated By: Yaneli Neely MD 10/01/22 1532 Signed By: 10/01/22 1536 Normal [facility] A1C with Estimated Average Jacky smith 04-12-2022 Glucose [Mass/Vol] 117 mg/dL Normal [facility] Comment on above: Result Comment: PERF ORMED BY: [place] [address] PATHOLOGIST WELL BLOWER ISAIAS BAHENA M.D. Performed By: #### A 1C [facility] e[facility] #### [facility] [address] [place] [address] HbA1c (Bld) [Mass fraction] 5.7 % High 4.3-5.6 [facility] Comment on above: Result Comment: Incr eased risk for diabetes: 5.7 - 6.4 diabetes: >6.4 glycemic control for adults with diabetes: <7.0 Performed By: #### A 1C [facility] eA #### [facility] [address] [place] [address] MG MAMM SCREEN 3D GISELA CADon 05-28-2021 MG MAMM SCREEN 3D GISELA CAD Patient: DACIA SPRAGUE Exam Date: 05/28/2021 : 1940 Gender:F Ordering : DR DANAE GRANT M.D. Admission #: [id number] Family : Order #: [id number] CLICK HERE TO VIEW EXAM RADIOLOGY REPORT [...] leukemia cancer at age 24. LOCATION: [facility] BREAST COMPOSITION: Heterogeneously dense,which may obscure small [...] Anand MD on 05/29/2021 at 07:25 Normal [facility] XR DEXA BONE DENSITYon 05-28 XR DEXA [...] by: MARKY BEAL Date: 2021-05-28 14:52 Normal [facility] Initial Visit (Orthopaedic S urgery)on 10-26-2019 Initial Visit (Orthopaedic Surgery) Chief Complaint New patient visit for scoliosis of lumbar spine. -MM History of Present Illnessretirend [facility] [place]. Seen at the request of self for another opinion about low back pain in the setting of scoliosis. Patient complains of low back pain present since about 2015, but worsening for the past 8 or 9 months since late 2019. She has no significant injury, but notices [...] Bright MD, FAAPMR, R-MSK Chief, Division of [facility] Board Certified in PMANDR and Sports Medicine [...] disorder and recent psychosocial stressors.[] HEM Normal [facility] Operative Reporton 9 Operative Report Date of Surgery: 05/16/2018SURGEON: Maximilian [...] day for postoperative care.Maximilian Grover D.O.glsDictated: 05/16/2018 #[id number]: 05/17/2018 #[id number]: Maximilian Grover D.O. [facility] Comment on above: Result Comment: Elec tronically Signed By: Maximilian Grover DO\.br\Date and Time Signed: 06/02/18 11:27 EST Coding Summary.on 05-17-2018 Coding Summary. CODING DATE: 018 FINAL [facility] DS[facility] STATUS: Home (Routine DC) PAYOR: Medicare APC DESCRIPTION 5491 Level 1 Intraocular Procedures ADMIT DX: REASON FOR VISIT DX: H25.11 Age-related nuclear cataract, right eye FINAL DX: PRINCIPAL: H25.11 Age-related nuclear cataract, right eye SECONDARY: H25.011 Cortical age-related cataract, right eye Z98.42 Cataract extraction status, left eye Z96.1 Presence of intraocular lens PYMT PROC APC STAT DESCRIPTION DOCTOR NAME DATE 06183 5491 J1 Extracapsular cataract Maximilian Grover DO [...] Linda Schaefer Date Saved: 05/17/2018 11:16 am [facility] History and Physicalon 05-16 History and Physical [...] in the near future.Maximilian Grover D.O.glsDictated: 05/15/2018 #[id number] 05/16/2018 #[id number]: Maximilian Grover D.O. Normal [facility] Comment on above: Result Comment: Elec tronically Signed By: Maximilian Grover DO\.br\Date and Time Signed: 05/16/18 07:20 EST Inpatient Patient Summaryon 05-16-2018 Inpatient [facility] Dis[facility] InstructionsPERSON INFORMATION Name: DACIA SPRAGUE [facility]#:[id number] PHYSICIANS Admitting Physician: Maximilian Grover DOAttending Physician: Maximilian Grover DO PCP: Narda GRANT MD Diagnosis: Cataract Comment: PATIENT EDUCATION INFORMATIONInstructions :REILLY- After Surgery Eye (Custom)Medication Leaflets:Follow up:With: Address: When: Maximilian Reilly [facility] [address] [place] [address] Business (1) Within 1 to 2 days MEDICATION LISTComment: Normal [facility] Main OR Intraoperative Recor don 05-16-2018 Main OR Intraoperative Record IntraOp Document Type FT Summary Primary Physician: Maximilian Grover DO Finalized Date/Time: 05/16/18 14:53:37 Pt. Name: BENTONDIPIKADACIA/Sex: 1940 Female Med Rec #: [id number] Physician: Maximilian Grover DO Financial #: [id number] Pt. Type: A Room/Bed: [place] [address] Admit/Disch: 05/16/18 06:43:00 - 05/16/18 09:50:00 Institution: [...] 2 Entry 3 Case Attendee Maximilian Grover DO, RN, Jorgito Clay RN, Kadi Aguilar Role Performed Surgeon - Primary General Assistant - Primary General Assistant - Primary Time In 05/16/18 08:56:00 05/16/18 08:51:00 05/16/18 08:51:00 Time Out 05/16/18 09:13:00 05/16/18 09:13:00 05/16/18 09:13:00 Procedure CATARACT EXTRACTION W/ CATARACT EXTRACTION W/ CATARACT EXTRACTION W/ INTRAOCULAR LENS(Right) INTRAOCULAR LENS(Right) INTRAOCULAR LENS(Right) Comments Last Modified By: Jose Alejandro AGUILLON, Jorgito Blount RN, Jorgito Ryan RN 05/16/18 09:13:05 05/16/18 09:13:05 05/16/18 09:13:05 Entry 4 Entry 5 Case Attendee Al COOPER, Digna Cash CST, Mindy Role Performed Scrub - Primary Scrub - Other Time In 05/16/18 08:51:00 05/16/18 08:51:00 Time Out 05/16/18 09:13:00 05/16/18 09:13:00 Procedure CATARACT EXTRACTION W/ CATARACT EXTRACTION W/ INTRAOCULAR LENS(Right) INTRAOCULAR LENS(Right) Comments Last Modified By: Jorgito Blount RN, RN, Andrea L 05/16/18 09:13:05 05/16/18 09:13:05 Perioperative Protocols FT [...] Time Out Maximilian Grover DO, Given Participants Jose Alejandro AGUILLON, bOed Martinez RN, Al Goodman CST, Shreya Lance CST, [...] and tissue Entry 1 Skin Integrity Intact, [place], Warm, and Skin Abnormality No Dry Outcomes [...] RN Patient Status Stable Skin. Condition Intact, [place], Warm, and Dry Airway Maintenance Oxygen in [...] safely administered during the perioperative period For [facility] please see scanned medication reconcilliation form for medications used at the field during the procedure. Implant Log FT Pre-Care Text: Records devices implanted during the operative or invasive procedure Entry 1 Implant/Explant Implant Implant Identification Description YOVANI [id number] 12.50MM Serial Number [id number] 24.00 [[id number]][F] Lot Number [id number] Heel Emery Buffer FT-BAUSCH [employer] LOMB Catalog ?# [id number] [F] Size 24.0 Expiration Date 04/28/20 Usage [...] 09:13 Blessing Stacy CST 05/16/18 14:53 Normal [facility] Main OR PACU II Recordon Main OR PACU II Record PACU Phase II Doc ument Type FT Summary Primary Physician: Maximilian Grover DO Finalized Date/Time: 05/16/18 10:30:32 Pt. Name: DACIA SPRAGUE/Sariah: 1940 Female Med Rec #: [id number] Physician: Maximilian Grover DO Financial #: [id number] Pt. Type: A Room/Bed: [facility] Admit/Disch: 05/16/18 06:43:11 - Institution: Case Times [...] By: Shu Chung RN 05/16/18 10:30 Normal [facility] Main OR Preoperative Recordo n 05-16-2018 Main OR Preoperative Record PreOp Document Type FT Summary Primary Physician: Maximilian Grover DO Finalized Date/Time: 05/16/18 08:54:03 Pt. Name: DACIA SPRAGUE/Sex: 1940 Female Med Rec #: [id number] Physician: Maximilian Grover DO Financial #: [id number] Pt. Type: A Room/Bed: AS12/01 Admit/Disch: 05/16/18 06:43:11 - Institution: Case Times [...] Signed By: Jorgito Blount RN 05/16/18 08:54 [facility] Main OR Preoperative Record Holding Area Document Type FT Summary Primary Physician: Clarissasam Maximilian CROSS Finalized Date/Time: 05/16/18 07:10:50 Pt. Name: DACIA SPRAGUE/Sex: 1940 Female Med Rec #: [id number] Physician: Maximilian Grover DO Financial #: [id number] Pt. Type: A Room/Bed: AS12/01 Admit/Disch: 05/16/18 06:43:11 - Institution: Case Times [...] By: Silvia Munoz RN 05/16/18 07:10 Normal [facility] Patient Education - [place] 1 07-17-2017 Patient Education - Text [place], [place] Gro[place] D.O.AFTER SURGERY [right eye] [left eye] RESTRICTIONS FOR [...] to surgical eye, six times today. Normal [facility] Progress Note-Physicianon Protein mass conc Patient: DACIA [...] Blood Loss: 0 ml. Complications: None. Normal [facility] Comment on above: Result Comment: Elec tronically Signed By: Maximilian Grover DO\.br\Date and Time Signed: 05/16/18 09:14 EST Vital Signs Date Time Vital Sign Value Performing Clinician Facility 04-11-2023 14:30-0500 Body height 149.86 cm Danae Grant Other [facility] Other 04-11-2023 14:30-0500 Body mass index (BMI) [Ratio] 21.89 kg/m2 Danae Grant Other [facility] Other 04-11-2023 14:30-0500 Body weight 49.17 kg Danae Grant Other [facility] Other 04-11-2023 14:30-0500 Diastolic blood pressure 68 mm[Hg] Danae Grant Other [facility] Other 04-11-2023 14:30-0500 Systolic blood pressure 142 mm[Hg] Danae Grant Other [facility] Other 02-08-2023 15:00-0400 Body height 149.86 cm Danae Grant Other [facility] Other 02-08-2023 15:00-0400 Body mass index (BMI) [Ratio] 21.61 kg/m2 Danae Grant Other [facility] Other 02-08-2023 15:00-0400 Body weight 48.54 kg Danae Grant Other [facility] Other 02-08-2023 15:00-0400 Diastolic blood pressure 71 mm[Hg] Danae Grant Other [facility] Other 02-08-2023 15:00-0400 Respiratory rate 12 /min Danae Grant Other [facility] Other 02-08-2023 15:00-0400 Systolic blood pressure 126 mm[Hg] Danae Grant Other [facility] Other Encounters Encounter Date Encounter Type Care Provider Facility Start: 03-15-2024 End: 03-15-2024 Bamboo flowsheet Lisa Armendariz MD Work Phone: [facility] Start: 03-15-2024 End: 03-15-2024 [employer] flowsheet Lisa Armendariz MD Work Phone: [facility] Start: 03-15-2024 End: 03-15-2024 Office outpatient visit 15 minutes Lisa Armendariz MD Work Phone: [facility] Comment on above: Melanocytic nevus of trunk (Primary Dx); Seborrheic keratosis; Lentigines Start: 03-15-2024 End: 03-15-2024 ambulatory LISA ARMENDARIZ Not Available Start: 02-20-2024 End: 02-20-2024 ambulatory Elisa Donohue MD Facility: [facility] Start: 02-06-2024 End: 02-06-2024 ambulatory Elisa Donohue MD Facility: [facility] Start: 01-10-2024 End: 01-10-2024 ambulatory ANKIT D [...] Available Start: 08-16-2023 End: 08-16-2023 ambulatory ANKIT D BEJ Not Available Start: 04-25-2023 End: 04-25-2023 ambulatory Danae Grant Other [facility] Other Start: 04-25-2023 Telephone encounter Danae Grant [facility] Start: 04-11-2023 End: 04-11-2023 ambulatory Danae Grant Other [facility] Other Start: 04-11-2023 Office outpatient vi sit 15 minutes Danae Grant [facility] Start: 03-28-2023 End: 03-28-2023 ambulatory Elisa Donohue MD Facility:[facility] Start: 03-07-2023 Telephone encounter Danae Grant [facility] Start: 03-07-2023 End: 03-07-2023 ambulatory Elisa Donohue MD [facility] [employer] Other Start: 02-11-2023 End: 02-11-2023 ambulatory Danae Grant Other [facility] Other Start: 02-11-2023 Telephone encounter Danae Grant [facility] Start: 02-08-2023 End: 02-08-2023 Departed Referred MD Danae Grant Work Phone: [facility] [place] Work Phone: Start: 02-08-2023 End: 02-08-2023 ambulatory MD Danae Grant Work Phone: [facility] Work Phone: Start: 02-08-2023 Office outpatient vi sit 15 minutes Danae Grant [facility] Start: 01-15-2023 End: 01-15-2023 ambulatory Danae Grant Facility:[facility] Start: 01-15-2023 End: 01-15-2023 ambulatory MD Danae Grant Work Phone: [facility] Work Phone: Start: 01-15-2023 End: 01-15-2023 Departed Referred MD Danae Grant Work Phone: [facility] Work Phone: Start: 10-01-2022 End: 10-01-2022 ambulatory Danae Grant Facility:[facility] Start: 10-01-2022 End: 10-01-2022 ambulatory MD Danae Grant Work Phone: [facility] Work Phone: Start: 10-01-2022 End: 10-01-2022 Patient encounter procedure MD Danae Grant Work Phone: [facility] [place] Work Phone: Start: 04-12-2022 End: 04-12-2022 ambulatory Danae Grant Facility:[facility] Start: 04-12-2022 End: 04-12-2022 ambulatory MD Danae Grant Work Phone: [facility] Work Phone: Start: 04-12-2022 End: 04-12-2022 Patient encounter procedure MD Danae Grant Work Phone: [facility] [place] Start: 02-19-2022 ambulatory EVARISTO MAGGI Facility :[facility] Start: 11-20-2021 End: 11-21-2021 ambulatory EVARISTO MAGGI Facility:[facility] Start: 10-23-2021 End: 10-23-2021 ambulatory EVARISTO MAGGI Facility:[facility] Start: 10-09-2021 End: 10-10-2021 ambulatory EVARISTO MAGGI Facility:[facility] Start: 05-28-2021 End: 05-29-[address] DANAE GRANT Facility:[facility] Start: 05-16-2018 End: 05-16-2018 Patient encounter procedure Maximilian Grover [place] [place] Date Procedure Procedure Detail Performing Clinician Start: 10-01-2022 X-ray of lumbar spin e, four or more views MD Danae Grant Work Phone: Plan of Treatment Date Care Activity Detail Author Start: 04-02-2025 End: 04-02-2025 Patient encounter procedure 04/02/2025 1:50 PM EST Office Visit [facility] [address] [place] [address] Lisa Armendariz MD [address] [place] [address] [facility] Start: 04-10-2024 End: 04-10-2024 Patient encounter procedure 04/10/2024 4:30 PM EST Office Visit [facility] [address] [place] [address] Ankit Resendiz MD [address] [facility] [place] [address] [facility] Start: 03-15-2024 End: 03-15-2024 Patient encounter procedure 03/15/2024 1:05 PM EDT Office Visit [facility] [address] [place] [address] Lisa Armendariz MD [address] [place] [address] Arrived [facility] Comment on above: Arrived Start: 01-29-2024 Influenza vaccination Influenz a Vaccine (#1) [facility] Start: 02-08-2023 Bacteria identified in Urine by Culture Urine Culture [facility] Start: 10-01-2022 [facility] Start: 04-12-2022 [facility] Glucose measurement estimated from glycated hemoglobin [facility] Work Phone: Glucose measurement estimated from glycated hemoglobin [facility] Hemoglobin A1c/Hemoglobin.total in Blood [facility] Work Phone: Hemoglobin A1c/Hemoglobin.total in Blood [facility] Immunizations Immunization Date Immunization Notes Care Provider Fa cility 02-08-2023 influenza, high dose seasonal, preservative-free Danae Grant Other [facility] Other 02-08-2023 influenza virus vaccine, unspecified formulation Lisa Armendariz MD Work Phone: [facility] 04-30-2021 COVID-19 Vaccine Moderna - Documentation Purposes Only Danae Grant Other [facility] Other 03-19-2021 influenza virus vaccine, split virus (incl. purified surface antigen) Danae Grant Other [facility] Other 09-18-2020 COVID-19 Vaccine Pfi zer - Documentation Purposes Only Danae Grant Other [facility] Other 08-29-2020 COVID-19 Vaccine Pfi zer - Documentation Purposes Only Danae Grant Other [facility] Other 03-06-2020 influenza virus vaccine, split virus (incl. purified surface antigen) Danae Grant Other [facility] Other 03-29-2019 pneumococcal polysaccharide vaccine, 23 valent Danae Grant Other [facility] Other 02-23-2019 influenza virus vaccine, split virus (incl. purified surface antigen) Danae Grant Other [facility] Other 03-07-2018 influenza virus vaccine, split virus (incl. purified surface antigen) Danae Grant Other [facility] Other 02-10-2017 influenza virus vaccine, split virus (incl. purified surface antigen) Danae Grant Other [facility] Other 05-20-2016 influenza virus vaccine, split virus (incl. purified surface antigen) Danae Grant Other [facility] Other 05-20-2016 influenza, injectabl e, quadrivalent, preservative free Danae Grant Other [facility] Other 05-06-2015 pneumococcal conjuga te vaccine, 13 valent Danaeradha Grant Other [facility] Other 03-11-2015 influenza virus vaccine, split virus (incl. purified surface antigen) Danae Grant Other [facility] Other 02-20-2014 tetanus and diphther ia toxoids, adsorbed, preservative free, for adult use (5 Lf of tetanus toxoid and 2 Lf of diphtheria toxoid) Danae Grant Other [facility] Other 04-04-2013 tetanus and diphther ia toxoids, adsorbed, preservative free, for adult use (5 Lf of tetanus toxoid and 2 Lf of diphtheria toxoid) Danae Grant Other [facility] Other Payers Date Payer Category Payer Unknown 2022 Self-pay [id number] 2018 Medicare [id number] 2004 Private Health Insurance [facility] [id number]. 315 2004 Medicare 1959 Medicare [id number] 1959 Unknown [id number] 1940 Unknown [id number] 2.16.840.1.721229.3.57 9.2.727 1940 Unknown [id number] 2.16.840.1.305745.3.57 9.2.593 1940 Unknown [id number] 2.16.840.1.369729.3.57 9.2.593 1940 Unknown [id number] 2.16.840.1.597800.3.57 9.2.593 1940 Unknown [id number] 2.16.840.1.306942.3.57 9.2.593 1940 Unknown [id number] 2.16.840.1.917446.3.57 9.2.593 1940 Unknown [id number] 2.16.840.1.017542.3.57 9.2.196 1940 Unknown [id number] 2.16840.1.252118.3.57 9.2.196 1940 Unknown [id number] 2.16840.1.485684.3.57 9.2.196 1940 Unknown [id number] 2.16.840.1.961060.3.57 9.2.196 1940 Unknown [id number] 2.16.840.1.394649.3.57 9.2.1259 1939 Unknown [id number] 2.16840.1.621200.3.57 9.2.1259 1939 Unknown [id number] 2.16.840.1.182659.3.57 9.2.1259 1939 Unknown [id number] 2.16.840.1.344071.3.57 9.2.1259 1939 Unknown [id number] 2.16.840.1.828117.3.57 9.2.1259 1939 Unknown [id number] 2.16.840.1.568679.3.57 9.2.1259 1939 Unknown [id number] 2.16.840.1.851832.3.57 9.2.1259 1940 Unknown [id number] 2.16.840.1.892623.3.57 9.2.125 1940 Unknown [id number] 2.16.840.1.968984.3.57 9.2.1259 1940 Unknown [id number] 2.16.840.1.714966.3.57 9.2.125 1940 Unknown [id number] 2.16.840.1.020814.3.57 9.2.125 1940 Unknown [id number] 2.16.840.1.098792.3.57 9.2.125 1940 Unknown [id number] 2.16.840.1.476836.3.57 9.2.125 1940 Unknown [id number] 2.16.840.1.840123.3.57 9.2.125 1940 Unknown [id number] 2.16.840.1.287945.3.57 9.2.125 1940 Unknown [id number] 2.16.840.1.706454.3.57 9.2.125 1940 Unknown [id number] 2.16.840.1.931151.3.57 9.2.125 1940 Unknown [id number] 2.16.840.1.538620.3.57 9.2.125 1940 Unknown [id number] 2.16.840.1.778781.3.57 9.2.125 1940 Unknown [id number] 2.16.840.1.341841.3.57 9.2.125 1940 Unknown [id number] 2.16.840.1.132807.3.57 9.2.1259 Medicare [id number] 2.16.840.1.148185.19 Medicare [id number] 2.16.840.1.186885.19 Unknown [id number] 2.16.840.1.869530.3.57 9.2.531 Unknown [id number] 2.16.840.1.449755.3.57 9.2.531 Unknown [id number] 2.16.840.1.944485.3.57 9.2.531 Unknown [id number] 2.16.840.1.214552.3.57 9.2.531 Social History Date Type Detail [facility] Work Phone: Start: 1940 Sex Assigned At Female F [facility] Start: 03-14-2023 End: 03-15-2024 Sex Assigned At [facility] Other Start: 03-14-2023 Tobacco smoking stat [facility] Never smoked tobacco [facility] Work Phone: Start: 03-28-2023 End: 03-15-2024 Alcoholic beverage intake Lifetime non-drinker (finding) [facility] Start: 03-14-2023 End: 03-15-2024 History of Social function [facility] Start: 03-28-2023 Alcohol Comment caffeine 1-2 cups/da y [facility] Start: 1940 Sex assigned at Not on file N [facility] History of Present illness Narrative 03-15-2024 Lisa Armendariz MD - 03/15/2024 1:05 PM EDT Note Date & Type Note Facility 03-15-2024 History of Presen t illness Narrative Skin Check Location: Patient requests a skin examination from the waist up Dermatologic history: history of Actinic Keratosis Last visit: 1 year ago Lesions: Location: left cheek Duration: months Quality: denies pain, denies itch Associated symptoms: rough Treatments: none Established patient All pertinent medical history, medications, and allergies were reviewed. General Exam: alert, oriented to person, place, and time, normal affect, well appearing uses a wheelchair Accompanied by son A complete skin exam was offered, pt declined. Areas not examined despite medical recommendation: From the waist down Scalp, Examined Head, Face Examined Neck Examined Chest Examined Back Examined Abdomen Examined Right arm Examined Left arm Examined Hands Examined Digits,nails: Examined Lymphatics: Not examined 1. Melanocytic nevus of trunk Torso - Posterior (Back) Scattered benign appearing, regular brown to light brown melanocytic papules and macules with similar morphology Counseled regarding these benign growths. Rarely, a nevus can develop into malignant melanoma, so any changing nevi should be promptly re-evaluated. 2. Seborrheic keratosis Left Malar Cheek Stuck on verrucous, hammond-brown papules and plaques. Patient was counseled regarding these benign growths. Removal is normally not necessary, but they may be removed if they are symptomatic or for cosmetic reasons. 3. Lentigines (3) Head - Anterior (Face), Left Arm, Right Arm Scattered hammond macules in sun-exposed areas. The patient was informed that lentigines are benign pigmented lesions that occur on sun-exposed and sun-damaged skin. No treatment is necessary. Recommended regular use of broad spectrum sunscreen SPF 30 or higher Next Visit: 1 year documented in this encounter [facility] Evaluation note 04-11-2023 Note Date & Type Note Facility 04-11-2023 Evaluation note Encounter Date Diagnosis Assessment Notes Mar, Mixed stress and urge urinary incontinence (ICD-10 - N39.46) States improvement on myrbetriq, continue at 25mg dose Mar, Abnormal MRI, lumbar spine (ICD-10 - R93.7) will contact pain mgmt with her concerns. [employer] Other Evaluation note 03-07-2023 Note Date & Type Note Facility 03-07-2023 Evaluation note Encounter Date Diagnosis Assessment Notes Feb, Mixed stress and urge urinary incontinence (ICD-10 - N39.46) [employer] Other Evaluation note 02-08-2023 Note Date & [...] in a few weeks if not improved. [employer] Other Evaluation note Note Date & Type Note Facility Evaluation note No assessment information [facility] Work Phone: Evaluation note Note Date & Type Note Facility Evaluation note No Information [employer] Other Evaluation note Note Date & Type Note Facility Evaluation note Diagnosis Parkinson disease (CMS/HCC)- Primary Paralysis agitans Polyneuropathy Unspecified hereditary and idiopathic peripheral neuropathy Cervical paraspinal muscle spasm Spasm of muscle Lumbar paraspinal muscle spasm Other symptoms referable to back Parkinson's disease without dyskinesia or fluctuating manifestations (CMS/HCC)- Primary Polyneuropathy Unspecified hereditary and idiopathic peripheral neuropathy Cervical paraspinal muscle spasm Spasm of muscle Lumbar paraspinal muscle spasm Other symptoms referable to back Parkinson's disease without dyskinesia or fluctuating manifestations (CMS/HCC)- Primary Polyneuropathy Unspecified hereditary and idiopathic peripheral neuropathy Cervical paraspinal muscle spasm Spasm of muscle Lumbar paraspinal muscle spasm Other symptoms referable to back Parkinson's disease without dyskinesia or fluctuating manifestations (CMS/HCC)- Primary Parkinson's disease without dyskinesia or fluctuating manifestations (CMS/HCC)- Primary Lumbar paraspinal muscle spasm Other symptoms referable to back Cervical paraspinal muscle spasm Spasm of muscle Polyneuropathy Unspecified hereditary and idiopathic peripheral neuropathy Melanocytic nevus of trunk- Primary Benign neoplasm of skin of trunk, except scrotum Seborrheic keratosis Lentigines documented in this encounter [facility] History general Narrative - Reported Note Date & Type Note Facility History general Narrative - Reported Type Medical History SCOLIOSIS Medical History Parkinson Surgical History D&C Hospitalization History SEE ABOVE [employer] Other Summary Purpose Family History No Family [...] section and content) DATE CREATED AUTHOR 06/03/2018 [facility] DATE CREATED AUTHOR AUTHOR'S ORGANIZ ATION 10/26/2019 [employer] DATE CREATED AUTHOR AUTHOR'S ORGANIZ ATION 11/26/2021 [facility] DATE CREATED AUTHOR AUTHOR'S ORGANIZ ATION 02/16/2023 [facility] DATE CREATED AUTHOR AUTHOR'S ORGANIZ ATION 02/27/2024 [facility] DATE CREATED AUTHOR AUTHOR'S ORGANIZ ATION 03/18/2024 [facility] [employer] Care Teams (unrecognized sec tion and content) Team Status: Inactive Member Role Status Dates Danae Grant MD Primary Care Provider, Referring P pricilla Active Ankit Resendiz MD Attending Provider Active Team Status: Active Member Role Status Dates Danae Grant MD Primary Care Provider Active Team Status: Inactive Member Role Status Dates Danae Grant MD Primary Care Provider Active Ankit Resendiz MD Attending Provider Active Team Status: Inactive Member Role Status Dates Danae Grant MD Primary Care Provider Active Outreach [facility] Attending Provider Active Team Status: Inactive Member Role Status Dates Danae Grant MD Attending Provider Active Leather Grader Relationship Specialty Start Date End Date Danae Grant MD [address] [place] [id number] PCP - General Family Medicine 01/04/23 Leather Grader Relationship Specialty Start Date End Date Danae Grant MD [address] [place] [id number] PCP - General Family Medicine 01/04/23 Goals (unrecognized section and content) Goals may be documented in a n alternate sectionGoals may be documented in an alternate sectionGoals may be documented in an alternate sectionNo InformationNo InformationGoals may be documented in an alternate sectionNo InformationNo InformationNo Information REASON FOR VISIT (unrecogniz ed section and content) Reason Comments Skin Check FOR RECORDS PERTAINING TO PATIENTS WHO ARE [...] BE BASED ON THE PRIMARY CLINICAL RECORDS. [facility]. provides no warranty or guarantee of the accuracy or completeness of information in this document.
== END 2024-03-22 14:35 | disposition home or self-care (01) ==
PROVIDERS: PCP Family Medicine; Visit Provider Nurse Practitioner
DX: M53.3 Sacrococcygeal disorders, not elsewhere classified (principal); M48.062 Spinal stenosis, lumbar region with neurogenic claudication; M47.816 Spondylosis without myelopathy or radiculopathy, lumbar region; M41.9 Scoliosis, unspecified
CPT/HCPCS: G0463

== ENCOUNTER 2024-05-31 14:15 | Outpatient (OUT) | payer MEDICARE, OTHER, SELFPAY ==
--- NOTE | 2024-05-31 14:51 | P.CN_ITS ---
Consult Note: HPI Data of Consult Patient: known to practice within the last 3 years Consult date: 02/06/24 Requesting Physician: Farzaneh Syed NP Primary Care Provider: Danae Wallace MD Consult Narrative Reason for consult: back and BLE pain Narrative: 83yof who presents for assessment. notes worsening pain in midback, low back, right leg. recently has had several falls, where she has acute pain. right leg tends to feel weak. 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 continues in a series of provider directed home exercises >6 weeks, without benefit. uses tylenol prn. recently underwent right L4-5 L5-S1 TFESI with mild relief ongoing and right SIJ injection with mild relief. she failed tylenol #3, noticed drowsiness. recently prescribed hydrocodone-acetaminophen 5-325mg daily PRN with significant improvement. since last visit she has fallen again, with injury to left lower leg. she fell 1 month ago and had 3 open wounds which are healing per pt. cc:: CC: Farzaneh Syed NP Review of Systems 2 ROS0 Status of ROS 10 or more systems reviewed and unremark able except as noted in history and below Musculoskeletal Reports: back pain PFSH PFSH Medical History Parkinson disease ?G20 - Parkinson's disease (ICD-10) Surgical History History of phacoemulsification of cataract of both eyes with intraocular lens implantation ?Z98.41 - Cataract extraction status, right eye (ICD-10) ?Z98.42 - Cataract extraction status, left eye (ICD-10) ?Z96.1 - Presence of intraocular lens (ICD-10) Meds Home Medications and Allergies Home Medications ?Medication ?Instructions ?Recorded ?Confirmed ?Type acetaminophen 650 mg 650 mg PO Q8H PAIN 11/08/22 03/12/24 History tablet,extended release (8 Hour Pain Reliever) ascorbic acid (vitamin C) 1,000 mg 1 g PO DAILY 11/08/22 03/12/24 History tablet (Vitamin C) calcium 100 mg capsule mg PO .QD 11/08/22 History carbidopa 25 mg-levodopa 100 mg 1 tab PO QID 11/08/22 03/12/24 History tablet (Sinemet) cholecalciferol (vitamin D3) 50 50 mcg PO DAILY 11/08/22 03/12/24 History mcg (2,000 unit) tablet (Vitamin D3) diphenhydramine 25 2 tab PO .HS PRN sleep 11/08/22 03/12/24 History mg-acetaminophen 500 mg tablet (Tylenol PM Extra Strength) magnesium 200 mg tablet 200 mg PO DAILY 11/08/22 03/12/24 History multivitamin 1 tab PO DAILY 11/08/22 03/12/24 History zinc 50 mg tablet 50 mg PO DAILY 11/08/22 03/12/24 History entacapone 200 mg tablet 200 mg PO BID 01/25/23 03/12/24 History hydrocodone 5 mg-acetaminophen 325 1 tab PO DAILY PRN pain 02/29/24 03/12/24 History mg tablet hydrocodone 5 mg-acetaminophen 325 0.5 tab PO DAILY PRN pain #7 tabs 03/22/24 Rx mg tablet Allergies Allergy/AdvReac Type Severity Reaction Status Date / Time No Known Drug Allergies Allergy Verified 03/12/24 11:03 Exam Constitutional Documenting provider has reviewed patient's vital signs: yes Common normals: no apparent distress, oriented x3, healthy appearing, alert and well nourished General appearance: cooperative HENMT Common normals: normocephalic, hearing grossly normal bilaterally and moist oral mucous membranes Head and scalp: normocephalic Eye Common normals: PERRL Pupil: PERRL Neck & C-Spine Common normals: full ROM General: normal visual inspection Chest Common normals: inspection of chest normal Respiratory Common normals: normal respiratory effort, no retractions and no use of accessory muscles Back & Pelvis Lumbar spine/lower back: ROM limited, pain with ROM and straight leg raise negative bilaterally Extremity Left lower extremity: lower leg Other: mild edema, redness noted to left coronado radiating into left foot 3 wounds noted as marked below redness marked with skin marker Extremity image (front): 2 1. 2. 3. Neuro Common normals: oriented x3, CN's II-XII intact bilaterally, moves all extremities, no focal motor deficits, no sensory deficits noted and deep tendon reflexes 2+ bilaterally Sensorium/orientation: alert Motor exam: strength 5/5 throughout and no movement abnormalities noted Psych Common normals: mental status grossly normal, thought process normal, cooperative, affect normal, speech normal and activity/motor behavior normal Speech: normal speech Thought process: normal thought process Results Additional Findings Additional findings: If on a controlled substance or opioids, I have checked an [place]AR[place] report on this patient and there are no aberrancies noted in the prescribing history.??If on a controlled substance or opioid a drug screen was completed and reviewed within the last year, and if there has not been a drug screen completed we ordered one today to monitor higher risk, state monitored pain medication use. As part of providing excellent, safe, comprehensive care, the following was completed at our patient's visit: 1. A medication reconciliation and review to ensure accurate knowledge of current/active medications, including asking our patients to inform us about any [id number] medications or herbal remedies/nutritional supplements/alternative remedies. 2. A review to specifically ensure our patients have had annual screening for screening for depression, screening for tobacco use, and screening for unhealthy alcohol use. For concerning screenings had a discussion with the patient, provided patient education, and recommended follow-up with primary care provider when appropriate. If patient noted with a risk of falling, they received education on strength, gait, and balance training to prevent future risk of falling. Assessment and Plan Assessment and Plan (1) Frequent falls: (2) Pain in left lower leg: (3) Lumbar stenosis with neurogenic claudication: (4) Sacroiliac joint pain: Assessment and Plan: improvement on exam (5) Lumbar spondylosis: Assessment and Plan: could consider right L1-2 L2-3 MBB x2 working towards RFA in the future (6) Lumbar scoliosis: Assessment and Plan: unfortunately with degree of curvature she is unlikely to have significant relief from interventional therapy Plan update stat left tib/fib xray f/u with PCP regarding LLE edema, redness and pain start gabapentin 100mg HS continue hydrocodone-acetaminophen 5-325mg 1/2 tab daily PRN moderate to severe pain, risks vs benefits reviewed encouraged NSAIDs continue tylenol nurse call in 2 weeks to assess gabapentin. if tolerating well without side effects can increase to 300mg HS. f/u with me in 6 weeks
== END 2024-05-31 14:16 | disposition home or self-care (01) ==
PROVIDERS: PCP Family Medicine; Visit Provider Nurse Practitioner
DX: M48.062 Spinal stenosis, lumbar region with neurogenic claudication (principal); M79.662 Pain in left lower leg; M47.816 Spondylosis without myelopathy or radiculopathy, lumbar region; M41.86 Other forms of scoliosis, lumbar region; M53.3 Sacrococcygeal disorders, not elsewhere classified
CPT/HCPCS: G0463

== ENCOUNTER 2024-05-31 15:19 | Outpatient (OUT) | payer MEDICARE, OTHER, SELFPAY ==
--- NOTE | 2024-05-31 15:37 | XR_ITS ---
The [address] [address] Patient Name: DACIA ESPINOZA MRN: [id number] date: 1940 Sex: F Assigned Patient Location: [facility] Current Patient Location: Accession/Order Number: [id number] Exam Date: 05/31/2024 15:52 Report Date: 06/01/2024 07:29 At the request of: FLORENCIO SCHROEDER Procedure: XR tibia fibula LT 2V PROCEDURE: XR tibia fibula LT 2V COMPARISON: None. HISTORY: left lower leg pain FINDINGS: BONES:No fracture, acute abnormality, or significant arthropathy. SOFT TISSUES:Mild soft tissue swelling mid to distal lower leg. No radiopaque foreign body. Vascular calcifications EFFUSION:None visible. OTHER: Negative. XR/XR tibia fibula LT 2V IMPRESSION: Soft tissue swelling, no acute bony abnormality Electronically authenticated by: PING AYALA Date: 06/01/2024 07:29
== END 2024-05-31 15:20 | disposition home or self-care (01) ==
PROVIDERS: PCP Family Medicine; Visit Provider Nurse Practitioner
DX: M48.062 Spinal stenosis, lumbar region with neurogenic claudication (principal); M79.662 Pain in left lower leg; M47.816 Spondylosis without myelopathy or radiculopathy, lumbar region; M41.86 Other forms of scoliosis, lumbar region; M53.3 Sacrococcygeal disorders, not elsewhere classified
CPT/HCPCS: 73590; G0463

== ENCOUNTER 2024-06-28 14:26 | Outpatient (OUT) | payer MEDICARE, OTHER, SELFPAY ==
--- NOTE | 2024-06-28 14:33 | PM.CN ---
Consult Note: HPI Data of Consult Patient: known to practice within the last 3 years Requesting Physician: Farzaneh Syed NP Primary Care Provider: Danae Wallace MD Consult Narrative Reason for consult: back and BLE pain Narrative: 84yof who presents for assessment. notes worsening pain in midback, low back, right leg. 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 continues in a series of provider directed home exercises >6 weeks, without benefit. uses tylenol prn. she failed tylenol #3, noticed drowsiness. previously prescribed hydrocodone-acetaminophen 5-325mg daily PRN with significant improvement. at last visit i started her on gabapentin 100mg which she stopped within 5 days due to ineffectiveness. cc:: CC: Farzaneh Syed NP Review of Systems ROS Status of ROS 10 or more systems reviewed and unremarkable except as noted in history and below Musculoskeletal Reports: back pain PFSH PFSH Medical History Parkinson disease ?G20 - Parkinson's disease (ICD-10) Surgical History History of phacoemulsification of cataract of both eyes with intraocular lens implantation ?Z98.41 - Cataract extraction status, right eye (ICD-10) ?Z98.42 - Cataract extraction status, left eye (ICD-10) ?Z96.1 - Presence of intraocular lens (ICD-10) Meds Home Medications and Allergies Home Medications ?Medication ?Instructions ?Recorded ?Confirmed ?Type acetaminophen 650 mg 650 mg PO Q8H PAIN 11/08/22 03/12/24 History tablet,extended release (8 Hour Pain Reliever) ascorbic acid (vitamin C) 1,000 mg 1 g PO DAILY 11/08/22 03/12/24 History tablet (Vitamin C) calcium 100 mg capsule mg PO .QD 11/08/22 History carbidopa 25 mg-levodopa 100 mg 1 tab PO QID 11/08/22 03/12/24 History tablet (Sinemet) cholecalciferol (vitamin D3) 50 50 mcg PO DAILY 11/08/22 03/12/24 History mcg (2,000 unit) tablet (Vitamin D3) diphenhydramine 25 2 tab PO .HS PRN sleep 11/08/22 03/12/24 History mg-acetaminophen 500 mg tablet (Tylenol PM Extra Strength) magnesium 200 mg tablet 200 mg PO DAILY 11/08/22 03/12/24 History multivitamin 1 tab PO DAILY 11/08/22 03/12/24 History zinc 50 mg tablet 50 mg PO DAILY 11/08/22 03/12/24 History entacapone 200 mg tablet 200 mg PO BID 01/25/23 03/12/24 History hydrocodone 5 mg-acetaminophen 325 1 tab PO DAILY PRN pain 02/29/24 03/12/24 History mg tablet hydrocodone 5 mg-acetaminophen 325 0.5 tab PO DAILY PRN pain #7 tabs 03/22/24 Rx mg tablet Allergies Allergy/AdvReac Type Severity Reaction Status Date / Time No Known Drug Allergies Allergy Verified 03/12/24 11:03 Exam Constitutional Documenting provider has reviewed patient's vital signs: yes Common normals: no apparent distress, oriented x3, healthy appearing, alert and well nourished General appearance: cooperative HENMT Common normals: normocephalic, hearing grossly normal bilaterally and moist oral mucous membranes Head and scalp: normocephalic Eye Common normals: PERRL Pupil: PERRL Neck & C-Spine Common normals: full ROM General: normal visual inspection Chest Common normals: inspection of chest normal Respiratory Common normals: normal respiratory effort, no retractions and no use of accessory muscles Back & Pelvis Lumbar spine/lower back: ROM limited, pain with ROM, lumbar scoliosis present and straight leg raise negative bilaterally Sacroiliac joints: SI joint(s) abnormal Extremity Common normals: normal to inspection and full ROM Neuro Common normals: oriented x3, CN's II-XII intact bilaterally, moves all extremities, no focal motor deficits, no sensory deficits noted and deep tendon reflexes 2+ bilaterally Sensorium/orientation: alert Motor exam: strength 5/5 throughout and no movement abnormalities noted Psych Common normals: mental status grossly normal, thought process normal, cooperative, affect normal, speech normal and activity/motor behavior normal Speech: normal speech Thought process: normal thought process Results Additional Findings Additional findings: If on a controlled substance or opioids, I have checked an OARRS report on this patient and there are no aberrancies noted in the prescribing history.??If on a controlled substance or opioid a drug screen was completed and reviewed within the last year, and if there has not been a drug screen completed we ordered one today to monitor higher risk, state monitored pain medication use. As part of providing excellent, safe, comprehensive care, the following was completed at our patient's visit: 1. A medication reconciliation and review to ensure accurate knowledge of current/active medications, including asking our patients to inform us about any [id number]-vvx-pwzritp medications or herbal remedies/nutritional supplements/alternative remedies. 2. A review to specifically ensure our patients have had annual screening for screening for depression, screening for tobacco use, and screening for unhealthy alcohol use. For concerning screenings had a discussion with the patient, provided patient education, and recommended follow-up with primary care provider when appropriate. If patient noted with a risk of falling, they received education on strength, gait, and balance training to prevent future risk of falling. Portions of this note may have been carried over from the previous visit and updated as appropriate. Please note this office utilizes paper charting in addition to the electronic medical record. A list of current medications, vitals, and PMH is available there as the clinical staff outside of myself do not have access to [employer] charting during the clinic day operations. As part of providing quality comprehensive care the current medications, vitals, and PMH were reviewed in the paper chart. Assessment and Plan Assessment and Plan (1) Frequent falls: (2) Lumbar stenosis with neurogenic claudication: (3) Sacroiliac joint pain: Assessment and Plan: improvement on exam (4) Lumbar spondylosis: Assessment and Plan: could consider right L1-2 L2-3 MBB x2 working towards RFA in the future (5) Lumbar scoliosis: Assessment and Plan: unfortunately with degree of curvature she is unlikely to have significant relief from interventional therapy (6) Chronic use of opiate drug for therapeutic purpose: Plan restart gabapentin 100mg HS increasing to 300mg HS refill hydrocodone-acetaminophen 5-325mg 1/2-1 tab daily as needed moderate to severe pain declining PT, utilizes walker and cane pt to call in 2 weeks to discuss response to medications, f/u to be determined
--- OUTSIDE RECORDS SUMMARY | 2024-06-28 14:37 | XMS_ITS | CCD ---
Author Organization [facility] Providers Care Registered Travel Nurse Name Role Phone Maximilian Grover Unavailable Unavailable Elena Maximilian Unavailable Unavailable Elena Maximilian Unavailable Unavailable AMRITA GRANT~[phone] UNKNOWN Unavailable Unavailable RUDY, DR AMRITA Rosa Admitting Unavailable RUDY, DR AMRITA Rosa Attending Unavailable RUDY, DR AMRITA Rosa Primary Care Unavailable WEST, DR PING Valentin Consulting Unavailable ZIEBER, DR MARKY Iraheta Consulting Unavailable RUDY, DR AMRITA Rosa Consulting Unavailable MAGGI, EVARISTO Admitting Unavailable MAGGI, EVARISTO Attending Unavailable RUDY, DR AMRITA Rosa Primary Care Unavailable MAGGI, EVARISTO Consulting Unavailable MAGGI, EVARISTO Admitting Unavailable MAGGI, EVARISTO Attending Unavailable RUDY, DR AMRITA Rosa Primary Care Unavailable MAGGI, EVARISTO Consulting Unavailable MAGGI, EVARISTO Admitting Unavailable MAGGI, EVARISTO Attending Unavailable RUDY, DR AMRITA Rosa Primary Care Unavailable MAGGI, EVARISTO Consulting Unavailable MAGGI, EVARISTO Admitting Unavailable MAGGI, EVARISTO Attending Unavailable DR AMRITA GRANT Referring Unavailable DR AMRITA GRANT Primary Care Unavailable MD Amrita Grant Primary Care Provider MD Amrita Grant Referring Provider MD Ankit Resendiz Attending Provider [phone] MD Amrita Grant Primary Care Provider MD Ankit Resendiz Attending Provider [phone] MD Amrita Grant Primary Care Provider Community, Outreach Attending Provider Amrita Grant Unavailable MD Amrita Grant Attending Provider NO FAMILY, PHYSICIAN Primary Care Unavailable Amrita Grant Admitting Unavailable Amrita Grant Attending Unavailable Amrita Grant Primary Care Unavailable Rudy Amrita E Referring Unavailable Bej, Ankit D Admitting Unavailable Bej, Ankit D Attending Unavailable Rudy Amrita E Primary Care Unavailable Bej, Ankit D Admitting Unavailable Bej, Ankit D Attending Unavailable Rudy Amrita E Primary Care Unavailable Community, Outreach Admitting Unavailable Community, Outreach Attending Unavailable Rudy CUETO, Amrita Primary Care Provider Gihéctoritis , Andrius Mann Attending Unavailable Giedraitis , Andrius Vytautas Attending Unavailable Giedraitis MD, Andrius Vytautas Attending Unavailable BEJ, ANKIT D Attending Unavailable [...] Referring Unavailable BEJ, ANKIT D Attending Unavailable VISHNU ARMENDARIZ Attending Unavailable BEJ, ANKIT D Attending Unavailable ARIELLE FERRARA Attending Unavailable Allergies Allergy Classification Reported Allergen(s) Allergy Type Date of Onset Reaction(s) Facility (1 source) No Known Medication Allergies; Translations: [No Known Medication Allergies] Propensity to adverse reactions (disorder) [facility] Repository Medications Current Medications Medication Drug Class(es) Dates Sig (Normalized) Sig (Original) Acetaminophen (8 sources) Acetaminophen (TYLENOL ARTHRITIS PAIN PO) Tylenol Arthritis Pain Active ascorbic acid 1000 mg oral tablet (9 sources) Vitamin C Start: 07-25-2023 take 1 tablet by mouth once daily Ascorbic Acid (Vitamin C) 1,000 mg tablet Active 1 TAB PO Daily July 25, 2023 12:00am FreeTextSi tablet Orally Once a day; Note: Source Status: Taking; Provider: Rudy Fink ( ) Calcium (5 sources) Phosphate Binder, Calcium Calcium 250 MG as directed Orally Active Calcium Carb-Cholecalcifero l (CALCIUM + D3 PO) (8 sources) Calcium Carb-Cholecalcifer ol (CALCIUM + D3 PO) Calcium + D3 Active calcium carbonate 1250 mg chewable tablet (1 source) Start: 07-25-2023 take 1 tablet by mouth once daily Calcium Carbonate (Calcium 500) 500 mg calcium (1,250 mg) tablet,chewable Active 500 MG PO Daily July 25, 2023 12:00am carbidopa 25 mg / levodopa 100 mg oral tablet (14 sources) Aromatic Amino Acid Decarboxylation Inhibitor, Aromatic Amino Acid Start: 01-10-2024 carbidopa-levodopa (Sinemet) 25-100 MG tablet Indications: Parkinson disease (CMS/HCC) 1.5 tabs 4 times daily at 09, 1300, 1700, 2100 180 tablet 5 01/10/2024 Active Start: 07-25-2023 take 1 tablet by alexia th four times daily Carbidopa-Levodopa 10-100 mg tablet Active 1 TAB PO Four times daily July 25, 2023 12:00am FreeTextSi tablet Orally four times a day; Note: Source Status: Taking; Provider: Rudy Fink ( ) take 1 tablet by alexia th every six hours Sinemet 10-100 MG 1 tablet Orally four times a day Active cholecalciferol 0.025 mg oral tablet (1 source) Vitamin D Start: 07-25-2023 take 1 tablet by mouth once daily Cholecalciferol (Vitamin D3) 25 mcg (1,000 unit) tablet Active 1 TAB PO Daily July 25, 2023 12:00am FreeTextSi tablet Orally Once a day; Note: Source Status: Taking; Provider: Rudy Fink ( ) entacapone 200 mg oral tablet (11 sources) Itygxjwj-R-Zgdc yltransferase Inhibitor Start: 02-28-2024 entacapone (Comtan) 200 MG tablet Indications: Parkinson disease (CMS/HCC) 1 tab 4 times daily (w/Sinemet) 120 tablet 6 02/28/2024 Active take 1 tablet by mouth every six hours Entacapone 200 MG 1 tablet Orally qid Active Fish Oils (5 sources) take 1 capsule by mo ut twice daily Fish Oil 500 MG 1 capsule Orally Twice a day Active Magnesium (14 sources) Start: 07-25-2023 magnesium 200 MG tablet Daily 07/25/2023 Active Start: 07-25-2023 take 1 tablet by mouth once da isabella Magnesium 200 mg tablet Active 200 MG PO Daily July 25, 2023 12:00am take 2 tablets by [facility] twice daily at mealtime Magnesium 100 MG 2 tablets with meals Orally Twice a day Active 24 hr mirabegron 25 mg extended release oral tablet (5 sources) beta3-Adrenergic Agonist Start: 07-25-2023 take 1 tablet by mouth once daily Mirabegron (Myrbetriq) 25 mg tablet extended release 24 hr Active 1 TAB PO Daily July 25, 2023 12:00am FreeTextSi tablet Orally Once a day; Note: Source Status: Taking; Refills: 3; Provider: Rudy Rosa Start: 02-15-2023 [facility] Myrbetriq 25 MG 1 tablet Orally Once a day for 30 day(s) Jan, Active Multiple Vitamin (MULTI VITAMIN DAILY PO) (8 sources) Multiple Vitamin (MULTI VITAMIN DAILY PO) Multi Vitamin Daily Active Multivitamin preparation (5 sources) Multivitamin Act trang Multivitamin tablet (1 source) Start: take 1 tablet by mouth once daily Multivitamin tablet Active 1 TAB PO Daily July 25, 2023 12:00am mupirocin 0.02 mg/mg topical ointment (1 source) RNA Synthetase Inhibitor Antibacterial Start: 025 Mupirocin 2 % ointment Active 1 APPLIC TOPICAL Twice daily June 08, 2024 12:00am [place] 6-Etr-Cbw-Fish Oil (Fish Oil) 100-160-1,000 mg capsule (1 source) Start: 024 Inkom 6-Pit-Fjo-Fish Oil (Fish Oil) 100-160-1,000 mg capsule Active CAP PO July 25, 2023 12:00am sulfamethoxazole 800 mg / trimethoprim 160 mg oral tablet (1 source) Dihydrofolate Reductase Inhibitor Antibacterial, Sulfonamide Antimicrobial Start: 025 take 1 tablet by mouth twice daily Sulfamethoxazole-Trim ethoprim 800-160 mg tablet Active 1 TAB PO Twice daily June 08, 2024 12:00am vitamin b12 0.1 mg oral tablet (10 sources) Vitamin B12 Start: 024 Cyanocobalamin (Vitamin B-12) 100 mcg tablet Active MCG PO As Directed July 25, 2023 12:00am FreeTextSig: as directed Orally; Note: Source Status: Taking; Provider: Rudy Fink ( ) Cyanocobalamin ( VITAMIN B-12 CR PO) Vitamin B12 Active Vitamin [...] Active zinc gluconate 30 mg oral tablet (9 sources) Start: 07-25-2023 zinc 30 MG tablet Daily 07/25/2023 Active Completed/Discontinued Medications Medication Drug Class(es) Dates Sig (Normalized) Sig (Original) acetaminophen 325 mg / HYDROcodone bitartrate 5 mg oral tablet (4 sources) Opioid Agonist Start: 03-22-2024 End: 04-16-2024 take 0.5 tablet by mouth once daily as needed for pain HYDROcodone-acetam inophen ([place]) 5-325 MG tablet TAKE 1/2 (ONE-HALF) OF A TABLET BY MOUTH EVERY DAY NEEDED FOR PAIN 03/22/2024 04/16/2024 Discontinued aspirin 300 mg rectal suppository (14 sources) Platelet Aggregation Inhibitor, Nonsteroidal Anti-inflammatory Drug Start: 07-25-2023 End: 07-25-2023 take 0.5 tablet by mouth once daily Aspirin 300 mg suppository Discontinued 0.5 TAB MT Daily July 25, 2023 12:00am July 25, 2023 2:41pm FreeTextSi/2 tablet Orally Once a day; Note: Source Status: Taking; Provider: Rudy Fink ( ) BABY ASPIRIN PO Take by mouth Active take 0.5 tablet by mouth once da isabella Aspirin 300 MG 1/2 tablet Orally Once a day Active cephalexin 500 mg oral capsule (2 sources) Cephalosporin Antibacterial Start: 04-16-2024 End: 04-23-2024 take 1 capsule by mouth in the morning cephalexin (Keflex) 500 MG capsule Indications: Skin tear of left lower leg without complication, initial encounter Take 1 capsule (500 mg) by mouth in the morning and 1 capsule (500 mg) before bedtime. Do all this for 7 days. 14 capsule 04/16/2024 04/23/2024 tiZANidine 2 mg oral tablet (8 sources) Central alpha-2 Adrenergic Agonist Start: 01-10-2024 End: 07-08-2024 take 1 tablet by mouth at bedtime tiZANidine (Zanaflex) 2 MG tablet Indications: Lumbar paraspinal muscle spasm Take 1 tablet (2 mg) by mouth at bedtime 30 tablet 5 01/10/2024 04/16/2024 Discontinued Problems Active Problems Problem Classification Problem Date Documented Date Episodic/Chronic E Codes: Fall (2 sources) Fall; Translations: [Unspecified fall, initial encounter] 04-16-2024 Episodic Genitourinary symptoms and ill-defined conditions (9 sources) Mixed urinary incontinence; Translations: [Mixed incontinence] Onset: 02-08-2023 Chronic Open wounds of extremities (2 sources) Tear of skin; Translations: [Laceration without foreign body, left lower leg, initial encounter] 04-16-2024 Episodic Other acquired deformities (3 sources) Scoliosis of lumbar spine; Translations: [Scoliosis, unspecified] Onset: 01-02-2023 01-02-2023 Chronic Other acquired deformities (5 sources) Leg length inequality; Translations: [Unequal limb length (acquired), unspecified site] Episodic Other and unspecified benign neoplasm (2 sources) Melanocytic nevus of trunk; Translations: [Melanocytic nevi of trunk] 03-15-2024 Episodic Other bone disease and musculoskeletal deformities (7 sources) Idiopathic scoliosis of lumbar spine; Translations: [Other idiopathic scoliosis, lumbar region] Onset: 01-02-2023 04-10-2024 Chronic Other lower respiratory disease (1 source) Rib pain; Translations: [Pleurodynia] 07-25-2023 Episodic Other nervous system disorders (1 source) Polyneuropathy, unspecified; Translations: [Polyneuropathy, unspecified] Onset: 04-12-2022 Chronic Other nervous system disorders (10 sources) Polyneuropathy; Translations: [Polyneuropathy, unspecified] Onset: 01-02-2023 [...] [Other melanin hyperpigmentation] 03-15-2024 Episodic Parkinson`s disease (15 sources) Parkinson's disease; Translations: [Parkinson's disease] Onset: 01-02-2023 01-02-2023 Chronic Spondylosis; intervertebral disc disorders; other back problems (8 sources) Spondylosis without myelopathy or radiculopathy, lumbar region; Translations: [Lumbar spondylosis] Onset: 11-25-2021 04-10-2024 Chronic Spondylosis; intervertebral disc disorders; other back problems (12 sources) Sacrococcygeal disorders, not elsewhere classified; Translations: [Spasm of muscle of lower back] Onset: 11-25-2021 01-02-2023 Episodic Unclassified (3 sources) LOW BACK PAIN, UNSPECIFIED; Translations: [LOW BACK PAIN, UNSPECIFIED] Onset: 11-25-2021 Past or Other Problems Problem Classification Problem Date Documented Date Episodic/Chronic Other connective tissue disease (10 sources) Spasm of cervical paraspinous muscle; Translations: [Other muscle spasm] Onset: 01-02-2023 01-02-2023 Episodic Other connective tissue disease (8 sources) Other symptoms and signs involving the [...] Test Name Value Interpretation Reference Range Facility No Panel Informationon 04-16 Светлана Amador MA 04/24/2024 5:17 PM Wound Care Date/Time: 04/16/2024 3:37 PM Performed by: Светлана Amador MA Authorized by: Arielle Ferrara NP Consent: Consent obtained: Verbal Consent given by: Patient Risks discussed: Bleeding, infection and pain Procedure details: Wound location: Leg Leg location: L lower leg Post-procedure details: Procedure completion: Tolerated Comments: Wound cleaned with sterile water, 2x3 nonadherent gauze pad with bacitracin applied, Kerlix wrapped around the leg. [facility] [employer] [facility] [employer] Urinalysis - DIPSTICKon 01-28 Appearance (U) cloudy [employer] Other Bilirubin Ql (U) small [employer] Other Color (U) orange [employer] Other Glucose Ql (U) Negative [employer] Other Hemoglobin Ql (U) Negative [employer] Other Ketones Ql (U) off chart [employer] Other Leukocyte esterase Test strip Ql (U) off chart [employer] Other Nitrite Ql (U) Negative [employer] Other pH (U) trace [employer] Other Protein Ql (U) trace [employer] Other Specific gravity (U) [Rel density] 1.015 [place] [employer] Other Urobilinogen (U) [Mass/Vol] 0.2 mg/dL [employer] Other Urinalysis - DIPSTICK Nor [employer] Other Urine Cultureon 02-08-2023 Bacteria identified Cx Nom (U) <9,000 colonies/ml mixed bacterial skin contaminants 2 Days PERFORMED BY: [place] [address] PATHOLOGIST [employer] ISAIAS BAHENA M.D. [facility] Comment on above: Performed By: #### C UU #### [address] Bacteria identified Cx Nom (U) [employer] Other Alanine aminotransferase [En zymatic activity/volume] in Serum or PlasmaOrdered By: OUTREACH COMMUNITY on 01-15-2023 ALT [Catalytic activity/Vol] 11 U/L 7-52 [facility] Albumin [Mass/volume] in Ser um or Plasma by Bromocresol green (BCG) dye binding methoOrdered By: OUTREACH COMMUNITY on 01-15-2023 Albumin BCG dye [Mass/Vol] 4.2 g/dL 3.5-5.7 [facility] Alkaline phosphatase [Enzyma tic activity/volume] in Serum or PlasmaOrdered By: OUTREACH COMMUNITY on 01-15-2023 ALP [Catalytic activity/Vol] 35 U/L 34-104 [facility] Aspartate aminotransferase [ Enzymatic activity/volume] in Serum or PlasmaOrdered By: OUTREACH COMMUNITY on 01-15-2023 AST [Catalytic activity/Vol] 28 U/L 13-39 [facility] Bilirubin.total [Mass/volume ] in Serum or PlasmaOrdered By: OUTREACH COMMUNITY on 01-15-2023 Bilirubin [Mass/Vol] 0.4 mg/dL 0.3-1.0 [facility] CBC Without Differentialon 0 01-15-2023 Erythrocyte distribution width (RBC) [Ratio] 13.2 % Normal 11.9-15.3 [facility] Comment on above: Performed By: #### O UTREACH CMP, OUTREACH LIPID, CBCNOOUTREACH #### [address] Hematocrit (Bld) [Volume fraction] 34.7 % Normal 34.0-46.4 [facility] Comment on above: Performed By: #### O UTREACH CMP, OUTREACH LIPID, CBCNOOUTREACH #### [address] Hemoglobin (Bld) [Mass/Vol] 11.5 g/dL Low 11.8-15.4 [facility] Comment on above: Performed By: #### O UTREACH CMP, OUTREACH LIPID, CBCNOOUTREACH #### [address] MCH (RBC) [Entitic mass] 32.2 pg Normal 24.7-34.3 [facility] Comment on above: Performed By: #### O UTREACH CMP, OUTREACH LIPID, CBCNOOUTREACH #### [address] MCV (RBC) [Entitic vol] 97.2 fL Normal 80-100 [facility] Comment on above: Performed By: #### O UTREACH CMP, OUTREACH LIPID, CBCNOOUTREACH #### [facility] [address] [place] [address] Mean Corpuscular HGB Conc 33.1 g/dL Normal 32.0-35.0 [facility] Comment on above: Performed By: #### O UTREACH CMP, OUTREACH LIPID, CBCNOOUTREACH #### [address] Platelet mean volume (Bld) [Entitic vol] 7.9 fL Normal 6.3-10.7 [facility] Comment on above: Result Comment: PERF ORMED BY: [place] [address] PATHOLOGIST [employer] ISAIAS BAHENA M.D. Performed By: #### O UTREACH CMP, OUTREACH LIPID, CBCNOOUTREACH #### [facility] [address] [place] [address] Platelets (Bld) [#/Vol] 319 10*3/uL Normal 150-450 [facility] Comment on above: Performed By: #### O UTREACH CMP, OUTREACH LIPID, CBCNOOUTREACH #### [address] RBC (Bld) [#/Vol] 3.56 10*6/uL Low 3.60-5.00 [facility] Comment on above: Performed By: #### O UTREACH CMP, OUTREACH LIPID, CBCNOOUTREACH #### [address] WBC (Bld) [#/Vol] 9.3 10*3/uL Normal 3.8-11.6 [facility] Comment on above: Performed By: #### O UTREACH CMP, OUTREACH LIPID, CBCNOOUTREACH #### [facility] [address] [place] [address] CMP Outreachon 01-15-2023 Albumin [Mass/Vol] 4.2 g/dL Normal 3.5-5.7 [facility] Comment on above: Performed By: #### O UTREACH CMP, OUTREACH LIPID, CBCNOOUTREACH #### [facility] [address] [place] [address] ALP [Catalytic activity/Vol] 35 U/L Normal 34-104 [facility] Comment on above: Performed By: #### O UTREACH CMP, OUTREACH LIPID, CBCNOOUTREACH #### [address] ALT [Catalytic activity/Vol] 11 U/L Normal 7-52 [facility] Comment on above: Performed By: #### O UTREACH CMP, OUTREACH LIPID, CBCNOOUTREACH #### [facility] [address] Anion gap [Moles/Vol] 12.5 mmol/L Normal 6.0-15.0 [facility] Comment on above: Performed By: #### O UTREACH CMP, OUTREACH LIPID, CBCNOOUTREACH #### [facility] [address] AST [Catalytic activity/Vol] 28 U/L Normal 13-39 [facility] Comment on above: Performed By: #### O UTREACH CMP, OUTREACH LIPID, CBCNOOUTREACH #### [facility] [address] Bilirubin [Mass/Vol] 0.4 mg/dL Normal 0.3-1.0 [facility] Comment on above: Performed By: #### O UTREACH CMP, OUTREACH LIPID, CBCNOOUTREACH #### [facility] [address] Calcium [Mass/Vol] 9.9 mg/dL Normal 8.6-10.3 [facility] Comment on above: Performed By: #### O UTREACH CMP, OUTREACH LIPID, CBCNOOUTREACH #### [facility] [address] [place] [id number] [place] Chloride [Moles/Vol] 104 mmol/L Normal 98-107 [facility] Comment on above: Performed By: #### O UTREACH CMP, OUTREACH LIPID, CBCNOOUTREACH #### [facility] [address] [place] [address] [place] CO2 [Moles/Vol] 26.8 mmol/L Normal 21.0-31.0 [facility] Comment on above: Performed By: #### O UTREACH CMP, OUTREACH LIPID, CBCNOOUTREACH #### [facility] [address] [place] [id number] [place] Creatinine [Mass/Vol] 0.76 mg/dL Normal 0.60-1.20 [facility] Comment on above: Performed By: #### O UTREACH CMP, OUTREACH LIPID, CBCNOOUTREACH #### [facility] [address] [place] [address] [place] GFR/1.73 sq M.predicted MDRD (S/P/Bld) [Vol rate/Area] mL/min/{1.73_m2} Normal [facility] Comment on above: Performed By: #### O UTREACH CMP, OUTREACH LIPID, CBCNOOUTREACH #### [facility] [address] Glucose [Mass/Vol] 102 mg/dL High 70-100 [facility] Comment on above: Result Comment: [facility] Glucose Reference Range is dependent on time and content of last meal. Glucose of more than 200 mg/dL in a nonstressed, ambulatory subject supports the diagnosis of Diabetes Mellitus. ADA recommended reference range Performed By: #### O UTREACH CMP, OUTREACH LIPID, CBCNOOUTREACH #### [facility] [address] [place] [address] Potassium [Moles/Vol] 4.3 mmol/L Normal 3.5-5.1 [facility] Comment on above: Performed By: #### O UTREACH CMP, OUTREACH LIPID, CBCNOOUTREACH #### [address] Protein [Mass/Vol] 6.6 g/dL Normal 6.4-8.9 [facility] Comment on above: Performed By: #### O UTREACH CMP, OUTREACH LIPID, CBCNOOUTREACH #### [place] [address] [place] Sodium [Moles/Vol] 139 mmol/L Normal 136-145 [facility] Comment on above: Performed By: #### O UTREACH CMP, OUTREACH LIPID, CBCNOOUTREACH #### [facility] [address] [place] [address] [place] Urea nitrogen [Mass/Vol] 28 mg/dL High 7-25 [facility] Comment on above: Performed By: #### O UTREACH CMP, OUTREACH LIPID, CBCNOOUTREACH #### [facility] [address] Calcium [Mass/volume] in Ser um or PlasmaOrdered By: OUTREACH COMMUNITY on 01-15-2023 Calcium [Mass/Vol] 9.9 mg/dL 8.6-10.3 [facility] Carbon dioxide, total [Moles /volume] in Serum or PlasmaOrdered By: OUTREACH COMMUNITY on 01-15-2023 CO2 [Moles/Vol] 26.8 mmol/L 21.0-31.0 [facility] Chloride [Moles/volume] in S zachary or PlasmaOrdered By: OUTREACH COMMUNITY on 01-15-2023 Chloride [Moles/Vol] 104 mmol/L 98-107 [facility] Cholesterol [Mass/volume] in Serum or PlasmaOrdered By: OUTREACH COMMUNITY on 01-15-2023 Cholesterol [Mass/Vol] 211 mg/dL 140-200 [facility] Comment on above: Chol less than 200 m g/dl low riskChol 201-239 mg/dl borderline riskChol 240 mg/dl and greater high risk Cholesterol in LDL Calc [Mas s/Vol]Ordered By: OUTREACH COMMUNITY on 01-15-2023 Cholesterol in LDL [Mass/Vol] 121 mg/dL 0-100 [facility] Comment on above: LDL ATP III CLASSIFI CATIONLDL less than 100 mg/dL OptimalLDL 100-129 mg/dL Near or above optimalLDL 130-159 mg/dL Borderline highLDL 160-189 mg/dL HighLDL greater than 189 mg/dL Very high Cholesterol in VLDL Calc [Ma ss/Vol]Ordered By: OUTREACH COMMUNITY on 01-15-2023 Cholesterol in VLDL [Mass/Vol] 11 mg/dL [facility] Creatinine [Mass/volume] in Serum or PlasmaOrdered By: OUTREACH COMMUNITY on 01-15-2023 Creatinine [Mass/Vol] 0.76 mg/dL 0.60-1.20 [facility] Erythrocyte distribution wid th Auto (RBC) [Ratio]Ordered By: OUTREACH COMMUNITY on 01-15-2023 Erythrocyte distribution width (RBC) [Ratio] 13.2 % 11.9-15.3 [facility] Glucose [Mass/volume] in Ser um or PlasmaOrdered By: OUTREACH COMMUNITY on 01-15-2023 Glucose [Mass/Vol] 102 mg/dL 70-100 [facility] Comment on above: ADA recommended refe rence rangeRandom Glucose Reference Range is dependent on time and content of last meal. Glucose of more than 200 mg/dL in a nonstressed, ambulatory subject supports the diagnosis of Diabetes Mellitus. Hematocrit Auto (Bld) [Volum e fraction]Ordered By: [facility] on 01-15-2023 Hematocrit (Bld) [Volume fraction] 34.7 % 34.0-46.4 [facility] Hemoglobin [Mass/volume] in BloodOrdered By: [facility] on 01-15-2023 Hemoglobin (Bld) [Mass/Vol] 11.5 g/dL 11.8-15.4 [facility] Leukocytes [#/volume] correc glenda for nucleated erythrocytes in Blood by Automated counOrdered By: [facility] on 01-15-2023 WBC corrected for nucl RBC Auto (Bld) [#/Vol] 9.3 10*3/uL 3.8-11.6 [facility] Lipid Profile Outreach Cholesterol [Mass/Vol] 211 mg/dL High 140-200 [facility] Comment on above: Result Comment: Chol less than 200 mg/dl low risk Chol 201-239 mg/dl borderline risk Chol 240 mg/dl and greater high risk Performed By: #### O [facility], OUTREACH LIPID, CBCNOOUTREACH #### [facility] [address] Cholesterol in HDL [Mass/Vol] 78 mg/dL Normal 23-92 [facility] Comment on above: Result Comment: HDL CHOL ATP-III CLASSIFICATION Cardiovascular Risk HDL > or equal to 60 mg/dL LOW HDL < 40 mg/dL HIGH Performed By: #### O [facility], OUTREACH LIPID, CBCNOOUTREACH #### [facility] [address] Cholesterol.total/Chol esterol in HDL [Mass ratio] 2.7 {ratio} Normal <5.0 [facility] Comment on above: Result Comment: PERF ORMED BY: [facility] [address] [place] [address] PATHOLOGIST [employer] ISAIAS BAHENA M.D. Performed By: #### O UTREACH CMP, OUTREACH LIPID, CBCNOOUTREACH #### [facility] [address] LDL Cholesterol,Calculated 121 mg/dL High 0-100 [facility] Comment on above: Result Comment: LDL ATP III CLASSIFICATION LDL less than 100 mg/dL Optimal LDL 100-129 mg/dL Near or above optimal LDL 130-159 mg/dL Borderline high LDL 160-189 mg/dL High LDL greater than 189 mg/dL Very high Performed By: #### O UTREACH CMP, OUTREACH LIPID, CBCNOOUTREACH #### [facility] [address] Triglyceride w/Reflex 59 mg/dL Normal 0-149 [facility] Comment on above: Result Comment: TRIG ATP III CLASSIFICATION TRIG less than 150 mg/dL Normal TRIG 150-199 mg/dL Borderline high TRIG 200-500 mg/dL High TRIG greater than 500 mg/dL Very high Standard traceable to the Center for Disease Conrtrol and Prevention (CDC) test method. Performed By: #### O UTREACH CMP, OUTREACH LIPID, CBCNOOUTREACH #### [facility] [address] VLDL CHOLESTEROL 11 mg/dL Normal [facility] Comment on above: Performed By: #### O UTREACH CMP, OUTREACH LIPID, CBCNOOUTREACH #### [facility] [address] MCH Auto (RBC) [Entitic mass ]Ordered By: OUTREACH COMMUNITY on 01-15-2023 MCH (RBC) [Entitic mass] 32.2 pg 24.7-34.3 [facility] MCHC Auto (RBC) [Mass/Vol]Or dered By: OUTREACH COMMUNITY on 01-15-2023 MCHC (RBC) [Mass/Vol] 33.1 g/dL 32.0-35.0 [facility] MCV Auto (RBC) [Entitic vol] Ordered By: OUTREACH COMMUNITY on 01-15-2023 MCV (RBC) [Entitic vol] 97.2 fL 80-100 [facility] No Panel InformationOrdered By: OUTREACH [facility] on 01-15-2023 Estimated GFR (CKD-EPI) > 60.0 mL/Min [facility] Creatinine Clearance (Chem N/A [facility] Platelet mean volume Auto (B ld) [Entitic vol]Ordered By: [facility] on 01-15-2023 Platelet mean volume (Bld) [Entitic vol] 7.9 fL 6.3-10.7 [facility] Platelets Auto (Bld) [#/Vol] Ordered By: OUTREACH [facility] on 01-15-2023 Platelets (Bld) [#/Vol] 319 10*3/uL 150-450 [facility] Potassium [Moles/volume] in Serum or PlasmaOrdered By: [facility] on 01-15-2023 Potassium [Moles/Vol] 4.3 mmol/L 3.5-5.1 [facility] Protein [Mass/volume] in Ser um or PlasmaOrdered By: OUTREACH [facility] on 01-15-2023 Protein [Mass/Vol] 6.6 g/dL 6.4-8.9 [facility] RBC Auto (Bld) [#/Vol]Ordere d By: [facility] on 01-15-2023 RBC (Bld) [#/Vol] 3.56 10*6/uL 3.60-5.00 [facility] Serum or plasma anion gap de terminationOrdered By: OUTREACH [facility] on 01-15-2023 Anion gap [Moles/Vol] 12.5 mmol/L 6.0-15.0 [facility] Serum or plasma high density lipoprotein (HDL) cholesterol measurementOrdered By: OUTREACH [facility] on 01-15-2023 Cholesterol in HDL [Mass/Vol] 78 mg/dL 23-92 [facility] Comment on above: HDL CHOL ATP-III CLA SSIFICATION Cardiovascular RiskHDL > or equal to 60 mg/dL LOWHDL < 40 mg/dL HIGH Serum or plasma total choles terol/high density lipoprotein (HDL) cholesterol mass ratOrdered By: OUTREACH [facility] on 01-15-2023 Cholesterol.total/Chol esterol in HDL [Mass ratio] 2.7 {ratio} <5.0 [facility] Sodium [Moles/volume] in Ser um or PlasmaOrdered By: OUTREACH COMMUNITY on 01-15-2023 Sodium [Moles/Vol] 139 mmol/L 136-145 [facility] Triglyceride [Mass/volume] i n Serum or PlasmaOrdered By: OUTREACH COMMUNITY on 01-15-2023 Triglyceride [Mass/Vol] 59 mg/dL 0-149 [facility] Comment on above: TRIG ATP III CLASSIF ICATIONTRIG less than 150 mg/dL NormalTRIG 150-199 mg/dL Borderline highTRIG 200-500 mg/dL High TRIG greater than 500 mg/dL Very highStandard traceable to the Center for Disease Conrtrol and Prevention (CDC) test method. Urea nitrogen [Mass/volume] in Serum or PlasmaOrdered By: OUTREACH COMMUNITY on 01-15-2023 Urea nitrogen [Mass/Vol] 28 mg/dL 7-25 [facility] A1C with Estimated Average G luon 10-01-2022 Glucose [Mass/Vol] 117 mg/dL Normal [facility] Comment on above: Result Comment: PERF ORMED BY: [place] [address] PATHOLOGIST CLEANER [employer]KEEPING ISAIAS BAHENA M.D. Performed By: #### A 1C [facility] eA #### [address] HbA1c (Bld) [Mass fraction] 5.7 % High 4.3-5.6 [facility] Comment on above: Result Comment: Incr eased risk for diabetes: 5.7 - 6.4 diabetes: >6.4 glycemic control for adults with diabetes: <7.0 Performed By: #### A 1C [facility] eA #### [facility] [address] [place] [address] XR lumbar spine min 4V*on XR lumbar spine min 4V* [facility] [address] XRay Report Signed Patient: Dacia Sprague MR#: [id number] : 1940 Acct:[id number] Age/Sex: 82 / F ADM Date: 10/01/22 Loc: XD Room: Type: REG CLI Attending Dr: Ankit Resendiz MD Copies to: [...] Yaneli Neely M.D.10/01/2022 3:36 PM Dictation Location: [place] [address] Transcribed By: [facility] 10/01/221535 Dictated By: Yaneli Neely MD 10/01/22 153 Signed By: 10/01/22 1536 Normal [facility] A1C with Estimated Average G [facility] 04-12-2022 Glucose [Mass/Vol] 117 mg/dL Normal [facility] Comment on above: Result Comment: PERF ORMED BY: [place] [address] PATHOLOGIST [employer] ISAIAS BAHENA M.D. Performed By: #### A 1C [facility] #### [address] HbA1c (Bld) [Mass fraction] 5.7 % High 4.3-5.6 [facility] Comment on above: Result Comment: Incr eased risk for diabetes: 5.7 - 6.4 diabetes: >6.4 glycemic control for adults with diabetes: <7.0 Performed By: #### A 1C [facility] #### [facility] [address] MG MAMM SCREEN 3D GISELA CADon 05-28-2021 MG MAMM SCREEN 3D GISELA CAD Patient: DACIA SPRAGUE Exam Date: 05/28/2021 : 1940 Gender:F Ordering : DR AMRITA GRANT M.D. Admission #: [id number] Family : Order #: [id number] CLICK HERE TO VIEW EXAM RADIOLOGY REPORT [...] leukemia cancer at age 24. LOCATION: [facility] BREAST COMPOSITION: Heterogeneously dense,which may obscure [...] MD on 05/29/2021 at 07:25 Normal [facility] XR DEXA BONE DENSITYon 05-28 XR [...] MARKY BEAL Date: 2021-05-28 14:52 Normal [facility] Initial Visit (Orthopaedic S urgery)on 10-26-2019 Initial Visit (Orthopaedic Surgery) Chief Complaint New patient visit for scoliosis of lumbar spine. -MM History of Present Illnessretirend [facility] [place]. Seen at the request of self for [...] stressors.[] HEM Normal [facility] Operative Reporton 9 Operative Report Date of [...] day for postoperative care.Maximilian Grover D.O.glsDictated: 05/16/2018 #[id number]: 05/17/2018 #[id number]: Maximilian Grover D.O. [facility] Comment on above: Result Comment: Elec tronically Signed By: Maximilian Grover DO\.br\Date and Time Signed: 06/02/18 11:27 EST Coding Summary.on 05-17-2018 Coding Summary. CODING DATE: 018 FINAL [facility] DSC STATUS: Home (Routine DC) PAYOR: Medicare APC DESCRIPTION 5491 Level 1 Intraocular Procedures ADMIT DX: REASON FOR VISIT DX: H25.11 Age-related nuclear cataract, right eye FINAL DX: PRINCIPAL: H25.11 Age-related nuclear cataract, right eye SECONDARY: H25.011 Cortical age-related cataract, right eye Z98.42 Cataract extraction status, left eye Z96.1 Presence of intraocular lens PYMT PROC APC STAT DESCRIPTION DOCTOR NAME DATE 96718 5491 J1 Extracapsular cataract Maximilian Grover DO [...] Schaefer Date Saved: 05/17/2018 11:16 am Normal [facility] History and Physicalon 05-16 History and Physical HOSPITAL REGULATION S: ALL Positive Important Negative Findings Shall BeRecrajendraedDATE ADMITTED: 05/16/2018HISTORY: The patient is a 77-year-old [...] in the near future.Maximilian Grover D.O.glsDictated: 05/15/2018 #[id number] 05/16/2018 #[id number]: Maximilian Grover D.O. [facility] Comment on above: Result Comment: Elec tronically Signed By: Maximilian Grover DO\.br\Date and Time Signed: 05/16/18 07:20 EST Inpatient Patient Summaryon 05-16-2018 Inpatient [facility] InstructionsPERSON INFORMATION Name: DACIA SPRAGUE PHYSICIANS Admitting Physician: Maximilian Grover DOAttending Physician: Maximilian Grover DO PCP: Narda GRANT MD Diagnosis: Cataract Comment: PATIENT EDUCATION INFORMATIONInstructions :ELENA- After Surgery Eye (Custom)Medication Leaflets:Follow up:With: Address: When: Maximilian Grover [facility] [address] [place] [address], [facility] [address] [place] [id number] Business (1) Within 1 to 2 days MEDICATION LISTComment: [facility] Main OR Intraoperative Recor don 05-16-2018 Main OR Intraoperative Record IntraOp Document Type FT Summary Primary Physician: Maximilian Grover DO Finalized Date/Time: 05/16/18 14:53:37 Pt. Name: DACIA SPRAGUE D.O.B./Sex: 1940 Female Med Rec #: [id number] Physician: Maximilian Grover DO Financial #: [id number] Pt. Type: A Room/Bed: [facility]06/30 Admit/Disch: 05/16/18 06:43:00 - 05/16/18 09:50:00 Institution: Case Times FT Entry 1 Patient Times In Room 05/16/18 08:51:00 Out Room 05/16/18 09:13:00 Procedure Times Start 05/16/18 09:00:00 Stop 05/16/18 09:11:00 Anesthesia Times Last Modified By: Blessing Stacy CST 05/16/18 09:12:54 General Comments: 05/16/18 Chart opened to review and send charges Jeff Stacy BETTING AGENCY COUNTER CLERK Case Attendance FT Entry 1 Entry 2 Entry 3 Case Attendee Elena CROSS, Maximilian Blount RN, Jorgito Clay RN, Kadi Aguilar Role Performed Surgeon - Primary Nursing Clerk - Primary Nursing Clerk - Primary Time In 05/16/18 08:56:00 05/16/18 08:51:00 05/16/18 08:51:00 Time Out 05/16/18 09:13:00 05/16/18 09:13:00 05/16/18 09:13:00 Procedure CATARACT EXTRACTION W/ CATARACT EXTRACTION W/ CATARACT EXTRACTION W/ INTRAOCULAR LENS(Right) INTRAOCULAR LENS(Right) INTRAOCULAR LENS(Right) Comments Last Modified By: Jose Alejandro RN, Jorgito Blount RN, Jorgito Ryan RN 05/16/18 09:13:05 05/16/18 09:13:05 05/16/18 09:13:05 Entry 4 Entry 5 Case Attendee Al BETTING AGENCY COUNTER CLERK, Digna Cash BETTING AGENCY COUNTER CLERK, Mindy Role Performed Scrub - Primary Scrub - Other Time In 05/16/18 08:51:00 05/16/18 08:51:00 Time Out 05/16/18 09:13:00 05/16/18 09:13:00 Procedure CATARACT EXTRACTION W/ CATARACT EXTRACTION W/ INTRAOCULAR LENS(Right) INTRAOCULAR LENS(Right) Comments Last Modified By: Jose Alejandro AGUILLON, Jorgito Blount RN, Jorgito Peterson 05/16/18 09:13:05 05/16/18 09:13:05 Perioperative Protocols FT [...] and tissue Entry 1 Skin Integrity Intact, [place], Warm, and Skin Abnormality No Dry Outcomes [...] Up PostOp Destination Pre Surgery/ASU Transported By Jorgiot Blount RN Patient Status Stable Skin. Condition Intact, [place], Warm, and Dry Airway Maintenance Oxygen in [...] safely administered during the perioperative period For [place] please see scanned medication reconcilliation form for medications used at the field during the procedure. Implant Log FT Pre-Care Text: Records devices implanted during the operative or invasive procedure Entry 1 Implant/Explant Implant Implant Identification Description YOVANI [id number] 12.50MM Serial Number [id number] 24.00 [[id number]] Lot Number [id number] [employer] Catalog ?# [id number] [F] Size 24.0 Expiration Date 04/28/20 Usage [...] 09:13 Blessing Stacy CST 05/16/18 14:53 Normal [facility] Main OR PACU II Recordon Main OR PACU II Record PACU Phase II Doc ument Type FT Summary Primary Physician: Maximilian Grover DO Finalized Date/Time: 05/16/18 10:30:32 Pt. Name: BENTONDIPIKADACIA/Sex: 1940 Female Med Rec #: [id number] Physician: Maximilian Grover DO Financial #: [id number] Pt. Type: A Room/Bed: [place] [address] Admit/Disch: 05/16/18 06:43:11 - Institution: Case Times [...] By: Shu Chung RN 05/16/18 10:30 Normal [facility] Main OR Preoperative Recordo n 05-16-2018 Main OR Preoperative Record PreOp Document Type FT Summary Primary Physician: Maximilian Grover DO Finalized Date/Time: 05/16/18 08:54:03 Pt. Name: DACIA SPRAGUE/Sex: 1940 Female Med Rec #: [id number] Physician: Maximilian Grover DO Financial #: [id number] Pt. Type: A Room/Bed: [facility]06/30 Admit/Disch: 05/16/18 06:43:11 - Institution: Case [...] By: Jorgito Blount RN 05/16/18 08:54 Normal [facility] Main OR Preoperative Record Holding Area Document Type FT Summary Primary Physician: Maximilian Grover DO Finalized Date/Time: 05/16/18 07:10:50 Pt. Name: DACIA SPRAGUE Esequiel Velasco/Sex: 1940 Female Med Rec #: [id number] Physician: Maximilian Grover DO Financial #: [id number] Pt. Type: A Room/Bed: [place] [address] Admit/Disch: 05/16/18 06:43:11 - Institution: Case Times [...] By: Silvia Munoz RN 05/16/18 07:10 Normal [facility] Patient Education - Texton 1 07-17-2017 Patient Education - [facility] GroverAFTER SURGERY [right eye] [left eye] [...] to surgical eye, six times today. Normal [facility] Progress Note-Physicianon Protein mass conc [...] Blood Loss: 0 ml. Complications: None. Normal [facility] Comment on above: Result Comment: Elec tronically Signed By: Maximilian Grover DO\.br\Date and Time Signed: 05/16/18 09:14 EST Vital Signs Date Time Vital Sign Value Performing Clinician Facility 06-08-2024 11:46-0500 Body height 149.86 cm [facility] 06-08-2024 11:46-0500 Body mass index (BMI) [Ratio] 21.4 kg/m2 [facility] 06-08-2024 11:46-0500 Body weight 48.13 kg [facility] 06-08-2024 11:46-0500 Diastolic blood pressure 70 mm[Hg] [facility] 06-08-2024 11:46-0500 Heart rate 71 /min [facility] 06-08-2024 11:46-0500 Systolic blood pressure 145 mm[Hg] [facility] 04-16-2024 15:00-0500 Body mass index (BMI) [Ratio] 19.53 kg/m2 Arielle Ferrara [employer] Work Phone: [facility] 04-16-2024 15:00-0500 Body temperature 97.59 [degF] Arielle Ferrara [employer] Work Phone: [facility] 04-16-2024 15:00-0500 Body weight 45.36 kg Arielle Ferrara [employer] Work Phone: [facility] 04-16-2024 15:00-0500 Diastolic blood pressure 60 mm[Hg] Arielle Ferrara [employer] Work Phone: [facility] 04-16-2024 15:00-0500 Heart rate 87 /min Arielle Ferrara [employer] Work Phone: [facility] 04-16-2024 15:00-0500 SaO2% (BldA) [Mass fraction] 99 % Arielle Ferrara [employer] Work Phone: [facility] 04-16-2024 15:00-0500 Systolic blood pressure 122 mm[Hg] Arielle Ferrara [employer] Work Phone: [facility] 04-10-2024 19:59-0500 Body height 152.4 cm Ankit Resendiz MD Work Phone: [facility] 04-10-2024 19:59-0500 Body mass index (BMI) [Ratio] 19.53 kg/m2 Ankit Resendiz MD Work Phone: [facility] [employer] 04-10-2024 19:59-0500 Body weight 45.36 kg Ankit Resendiz MD Work Phone: [facility] [employer] 04-11-2023 14:30-0500 Body height 149.86 cm Amrita Grant Other [email or web address] Other 04-11-2023 14:30-0500 Body mass index (BMI) [Ratio] 21.89 kg/m2 Amrita Grant Other [email or web address] Other 04-11-2023 14:30-0500 Body weight 49.17 kg Amrita Grant Other [email or web address] Other 04-11-2023 14:30-0500 Diastolic blood pressure 68 mm[Hg] Amrita Grant Other [email or web address] Other 04-11-2023 14:30-0500 Systolic blood pressure 142 mm[Hg] Amrita Grant Other [email or web address] Other 02-08-2023 15:00-0400 Body height 149.86 cm Amrita Grant Other [email or web address] Other 02-08-2023 15:00-0400 Body mass index (BMI) [Ratio] 21.61 kg/m2 Amrita Grant Other [email or web address] Other 02-08-2023 15:00-0400 Body weight 48.54 kg Amrita Grant Other [email or web address] Other 02-08-2023 15:00-0400 Diastolic blood pressure 71 mm[Hg] Amrita Grant Other [email or web address] Other 02-08-2023 15:00-0400 Respiratory rate 12 /min Amrita Rudy Other [email or web address] Other 02-08-2023 15:00-0400 Systolic blood pressure 126 mm[Hg] Amrita Grant Other [email or web address] Other Encounters Encounter Date Encounter Type Care Provider Facility Start: 06-08-2024 End: 06-08-2024 ambulatory [facility] Work Phone: Start: 06-08-2024 End: 06-08-2024 Patient encounter procedure [facility] Work Phone: Start: 04-16-2024 End: 04-16-2024 ambulatory ARIELLE FERRARA Not Available Start: 04-16-2024 End: 04-16-2024 Office outpatient visit 25 minutes Arielle Ferrara [employer] Work Phone: [facility] Comment on above: Skin tear of left lo wer leg without complication, initial encounter (Primary Dx); Fall, initial encounter Start: 04-10-2024 End: 04-11-2024 ambulatory ANKIT RESENDIZ Not Available Start: 04-10-2024 End: 04-11-2024 Office outpatient visit 25 minutes Ankit Resendiz MD Work Phone: [facility] Comment on above: Parkinson's disease without dyskinesia or fluctuating manifestations (CMS/HCC) (Primary Dx); Other idiopathic scoliosis, lumbar region; Spondylosis of lumbar spine; Lumbar paraspinal muscle spasm; Cervical paraspinal muscle spasm; Polyneuropathy Start: 04-10-2024 End: 04-10-2024 Bamboo flowsheet Ankit Resendiz MD Work Phone: [facility] Start: 04-10-2024 End: 04-10-2024 Bamboo flowsheet Ankit Resendiz MD Work Phone: [facility] Start: 03-15-2024 End: 03-15-2024 Bamboo flowsheet Vishnu Armendariz MD Work Phone: [facility] Start: 03-15-2024 End: 03-15-2024 Bamboo flowsheet Vishnu Armendariz MD Work Phone: [facility] Start: 03-15-2024 End: 03-15-2024 Office outpatient visit 15 minutes Vishnu Armendariz MD Work Phone: [facility] Comment on above: Melanocytic nevus of trunk (Primary Dx); Seborrheic keratosis; Lentigines Start: 03-15-2024 End: 03-15-2024 ambulatory VISHNU ARMENDARIZ Not Available Start: 03-12-2024 End: 03-12-2024 ambulatory Elisa Donohue MD Facility: [facility] Start: 02-20-2024 End: 02-20-2024 ambulatory Elisa Donohue [...] Not Available Start: 04-25-2023 End: 04-25-2023 ambulatory Amrita Grant Other [email or web address] Other Start: 04-25-2023 Telephone encounter Amrita Grant [facility] Start: 04-11-2023 End: 04-11-2023 ambulatory Amrita Grant Other [email or web address] Other Start: 04-11-2023 Office outpatient vi sit 15 minutes Amrita Grant [facility] Start: 03-07-2023 End: 03-07-2023 ambulatory Amrita Grant Other [email or web address] Other Start: 03-07-2023 Telephone encounter Amrita Grant [facility] Start: 02-11-2023 End: 02-11-2023 ambulatory Amrita Grant Other [email or web address] Other Start: 02-11-2023 Telephone encounter Amrita Grant [facility] Start: 02-08-2023 End: 02-08-2023 Departed Referred MD Amrita Grant Work Phone: [facility] [place] Work Phone: Start: 02-08-2023 End: 02-08-2023 ambulatory MD Amrita Grant Work Phone: [facility] Work Phone: Start: 02-08-2023 Office outpatient vi sit 15 minutes Amrita Grant [facility] Start: 01-15-2023 End: 01-15-2023 ambulatory Amrita Grant Facility:[facility] Start: 01-15-2023 End: 01-15-2023 ambulatory MD Amrita Grant Work Phone: [facility] Work Phone: Start: 01-15-2023 End: 01-15-2023 Departed Referred MD Amrita Grant Work Phone: [facility] Work Phone: Start: 10-01-2022 End: 10-01-2022 ambulatory Amrita Grant Facility:[facility] Start: 10-01-2022 End: 10-01-2022 ambulatory MD Amrita Grant Work Phone: [facility] Work Phone: Start: 10-01-2022 End: 10-01-2022 Patient encounter procedure MD Amrita Grant Work Phone: [facility] [place] Work Phone: Start: 04-12-2022 End: 04-12-2022 ambulatory Amrita Grant Facility:[facility] Start: 04-12-2022 End: 04-12-2022 ambulatory MD Amrita Grant Work Phone: [facility] Work Phone: Start: 04-12-2022 End: 04-12-2022 Patient encounter procedure MD Amrita Grant Work Phone: [facility] [place] Start: 02-19-2022 ambulatory EVARISTO MAGGI Facility :[facility] Start: 11-20-2021 End: 11-21-2021 ambulatory EVARISTO MAGGI Facility:[facility] Start: 10-23-2021 End: 10-23-2021 ambulatory EVARISTO MAGGI Facility:[facility] Start: 10-09-2021 End: 10-10-2021 ambulatory EVARISTO MAGGI Facility:[facility] Start: 05-28-2021 End: 05-29-[address] AMRITA GRANT Facility: Start: 05-16-2018 End: 05-16-2018 Patient encounter procedure Maximilian Grover Facility:[facility] [place] Procedures Date Procedure Procedure Detail Performing Clinician Start: 04-16-2024 WOUND CARE Светлана glass MA Start: 10-01-2022 X-ray of lumbar spin e, four or more views MD Amrita Grant Work Phone: Plan of Treatment Date Care Activity Detail Author Start: 04-02-2025 End: 04-02-2025 Patient encounter procedure 04/02/2025 1:50 PM EST Office Visit [facility] [address] [place] [address] Vishnu Armendariz MD [address] [place], [place] [id number] [facility] Start: 09-04-2024 End: 09-04-2024 Patient encounter procedure 09/04/2024 4:00 PM EDT Office Visit [facility] [address] [place] [address] Ankit Resendiz MD [address] [place] [address] [facility] Start: 04-10-2024 End: 04-10-2024 Patient encounter procedure 04/10/2024 4:30 PM EST Office Visit [facility] [address] [place] [address] Ankit Resendiz MD [address] [facility] [address] [place] [address] [facility] Start: 03-15-2024 End: 03-15-2024 Patient encounter procedure 03/15/2024 1:05 PM EDT Office Visit [facility] [address] [place] [address] Vishnu Armendariz MD [address] [place] [address] Arrived [facility] Comment on above: Arrived Start: 01-29-2024 Influenza vaccination Influenz a Vaccine (#1) [facility] Start: 02-08-2023 Bacteria identified in Urine by Culture Urine Culture [facility] Start: 10-01-2022 [facility] Start: 04-12-2022 [facility] Glucose measurement estimated from glycated hemoglobin [facility] Work Phone: Glucose measurement estimated from glycated hemoglobin [facility] Hemoglobin A1c/Hemoglobin.total in Blood [facility] Work Phone: Hemoglobin A1c/Hemoglobin.total in Blood [facility] Immunizations Immunization Date Immunization Notes Care Provider Fa cility 02-08-2023 influenza, high dose seasonal, preservative-free Amrita Grant Other [email or web address] [facility] [employer] Other 02-08-2023 influenza virus vaccine, unspecified formulation Vishnu Armendariz MD Work Phone: [facility] 04-30-2021 COVID-19 Vaccine Moderna - Documentation Purposes Only Amrita Grant Other [facility] 03-19-2021 influenza virus vaccine, split virus (incl. purified surface antigen) Amrita Grant Other [email or web address] [facility] [employer] Other 03-19-2021 influenza virus vaccine, unspecified formulation [facility] 09-18-2020 COVID-19 Vaccine Pfi zer - Documentation Purposes Only Amrita Grant Other [facility] 08-29-2020 COVID-19 Vaccine Pfi zer - Documentation Purposes Only Amrita Grant Other [facility] 03-06-2020 influenza virus vaccine, split virus (incl. purified surface antigen) Amrita Grant Other [facility] [employer] Other 03-06-2020 influenza virus vaccine, unspecified formulation [facility] 03-29-2019 pneumococcal polysaccharide vaccine, 23 valent Amrita Grant Other [facility] 02-23-2019 influenza virus vaccine, split virus (incl. purified surface antigen) Amrita Grant Other [facility] [employer] Other 02-23-2019 influenza virus vaccine, unspecified formulation [facility] 03-07-2018 influenza virus vaccine, split virus (incl. purified surface antigen) Amrita Grant Other [facility] [employer] Other 03-07-2018 influenza virus vaccine, unspecified formulation [facility] 02-10-2017 influenza virus vaccine, split virus (incl. purified surface antigen) Amrita Grant Other [email or web address] [facility] [employer] Other 02-10-2017 influenza virus vaccine, unspecified formulation [facility] 05-20-2016 influenza virus vaccine, split virus (incl. purified surface antigen) Amrita Grant Other [email or web address] Other 05-20-2016 influenza virus vaccine, unspecified formulation [facility] 05-20-2016 influenza, injectabl e, quadrivalent, preservative free Amrita Grant Other [email or web address] Other 05-06-2015 pneumococcal conjuga te vaccine, 13 valent Amrita Grant Other [facility] 03-11-2015 influenza virus vaccine, split virus (incl. purified surface antigen) Amrita Grant Other [email or web address] Other 03-11-2015 influenza virus vaccine, unspecified formulation [facility] 02-20-2014 tetanus and diphther ia toxoids, adsorbed, preservative free, for adult use (5 Lf of tetanus toxoid and 2 Lf of diphtheria toxoid) Amrita Grant Other [facility] 04-04-2013 tetanus and diphther ia toxoids, adsorbed, preservative free, for adult use (5 Lf of tetanus toxoid and 2 Lf of diphtheria toxoid) Amrita Grant Other [facility] Payers Date Payer Category Payer Unknown 2022 Self-pay [id number] 2018 Medicare [id number] [address] [facility] [id number] [id number]. 315 2004 Medicare [id number]. 1.13.69 3.2.7.9.231333.931695. 315 1959 Medicare [id number] 1959 Unknown [id number] 1939 Unknown [id number] 2.16.840.1.269450.3.57 9.2.727 1939 Unknown [id number] 2.16.840.1.709433.3.57 9.2.593 1939 Unknown [id number] 2.16.840.1.637827.3.57 9.2.593 1939 Unknown [id number] 2.16.840.1.230905.3.57 9.2.593 1939 Unknown [id number] 2.16.840.1.132501.3.57 9.2.593 1939 Unknown [id number] 2.16.840.1.765337.3.57 9.2.593 1939 Unknown [id number] 2.16.840.1.832088.3.57 9.2.196 1939 Unknown [id number] 2.16.840.1.702570.3.57 9.2.196 1939 Unknown [id number] 2.16.840.1.341248.3.57 9.2.196 1939 Unknown [id number] 2.16.840.1.980672.3.57 9.2.1259 1939 Unknown [id number] 2.16.840.1.372596.3.57 9.2.1259 1939 Unknown [id number] 2.16.840.1.796677.3.57 9.2.1259 1939 Unknown [id number] 2.16.840.1.024028.3.57 9.2.1259 1939 Unknown [id number] 2.16.840.1.653553.3.57 9.2.1259 1939 Unknown [id number] 2.16.840.1.008063.3.57 9.2.1259 1939 Unknown [id number] 2.16.840.1.805775.3.57 9.2.1259 1939 Unknown [id number] 2.16.840.1.235313.3.57 9.2.1259 1939 Unknown [id number] 2.16.840.1.446251.3.57 9.2.1259 1939 Unknown [id number] 2.16.840.1.709850.3.57 9.2.1259 1939 Unknown [id number] 2.16.840.1.952416.3.57 9.2.125 1939 Unknown [id number] 2.16.840.1.687682.3.57 9.2.125 1939 Unknown [id number] 2.16.840.1.275570.3.57 9.2.125 1939 Unknown [id number] 2.16.840.1.877131.3.57 9.2.125 1939 Unknown [id number] 2.16.840.1.624113.3.57 9.2.125 1939 Unknown [id number] 2.16.840.1.609601.3.57 9.2.125 1939 Unknown [id number] 2.16.840.1.351170.3.57 9.2.125 1939 Unknown [id number] 2.16.840.1.994157.3.57 9.2.125 1939 Unknown [id number] 2.16.840.1.028449.3.57 9.2.125 1939 Unknown [id number] 2.16.840.1.470782.3.57 9.2.125 1939 Unknown [id number] 2.16.840.1.189412.3.57 9.2.125 1939 Unknown [id number] 2.16.840.1.162039.3.57 9.2.125 1939 Unknown [id number] 2.16.840.1.140879.3.57 9.2.1259 Medicare [id number] 2.16.840.1.138625.19 Medicare [id number] 2.16.840.1.133898.19 Unknown [id number] 2.16.840.1.460674.3.57 9.2.531 Unknown [id number] 2.16.840.1.331628.3.57 9.2.531 Unknown [id number] 2.16.840.1.332327.3.57 9.2.531 Unknown [id number] 2.16.840.1.681155.3.[address] [facility] [id number] Social History Date Type Detail Facility Tobacco smoking stat us KSIS Unknown if ever smoked [facility] Work Phone: Start: 1940 Sex Assigned At Female F [facility] Start: 03-14-2023 End: 03-15-2024 Sex Assigned At [facility] [employer] Other Start: 10-13-2015 End: 03-14-2023 Tobacco smoking status NHIS Never smoked tobacco [facility] Work Phone: Start: 03-28-2023 End: 04-16-2024 Alcoholic beverage intake Lifetime non-drinker (finding) [facility] Start: 03-14-2023 End: 03-15-2024 History of Social function [facility] Start: 03-28-2023 Alcohol Comment caffeine 1-2 cups/da y [facility] Start: 1940 Sex assigned at Not on file [facility] Start: 06-08-2024 Sex Female (finding) [facility] Clinical Notes 02-08-2023 to 04-16-2024 Arielle Ferrara NP - 04/16/2024 2:45 PM José Luis Amador MA - 04/16/2024 2:45 PM Modesto Resendiz MD - 04/10/2024 4:30 PM Modesto Resendiz MD - 04/10/2024 4:30 PM EST Note Date & Type Note Facility 04-16-2024 History of Presen t illness Narrative Images from the original note were not included. HPI: Historian of HPI: patient and family Dacia Sprague is a 83 y.o. female who presents today to the Urgent Care with the following complaints and denials which have been present for 1 week(s). Pt states she fell at home about a week ago, and has a small wound on her left coronado. Last reported tetanus was 2004. C/O Denies Symptom Comments [x] [] Lesion Left coronado wound [] [x] Rash [] [x] Lump [] [x] Bump [] [x] Depression [] [x] abscess [] [x] cellulitis [] [x] itching [x] [] pain [x] [] burning [] [x] Sensation of insects crawling Additional Comments: pt has taken triple antibiotic cream OTC medication without relief ROS: A complete system ROS was performed and negative aside from the pertinent positives noted in the HPI and PE. Visit Vitals BP 122/60 Pulse 87 Temp 97.6 F (Temporal) Wt 100 lb SpO2 99% BMI 19.53 kg/m Smoking Status Never BSA 1.39 m Physical Exam Vitals reviewed. Constitutional: General: She is not in acute distress. Appearance: Normal appearance. HENT: Head: Normocephalic and atraumatic. Nose: Nose normal. Mouth/Throat: Mouth: Mucous membranes are moist. Pharynx: Oropharynx is clear. Eyes: Extraocular Movements: Extraocular movements intact. Conjunctiva/sclera: Conjunctivae normal. Pupils: Pupils are equal, round, and reactive to light. Cardiovascular: Rate and Rhythm: Normal rate and regular rhythm. Pulses: Normal pulses. Heart sounds: Normal heart sounds. Pulmonary: Effort: Pulmonary effort is normal. No respiratory distress. Breath sounds: Normal breath sounds. No wheezing, rhonchi or rales. Musculoskeletal: General: Normal range of motion. Cervical back: Normal range of motion and neck supple. Skin: General: Skin is warm and dry. Capillary Refill: Capillary refill takes less than 2 seconds. Findings: No rash. Comments: Skin tear 2 cm x 1 cm; mild erythema surrounding area Neurological: General: No focal deficit present. Mental Status: She is alert and oriented to person, place, and time. Psychiatric: Mood and Affect: Mood normal. Behavior: Behavior normal. Thought Content: Thought content normal. Judgment: Judgment normal. 1. Skin tear of left lower leg without complication, initial encounter (Primary) Presents today for evaluation of possible infection of lower leg. She fell in her driveway last week and has been caring for the area on her own. She is here today for evaluation. Dx and tx discussed. She and her son had concern for some redness that started today. Area measured, cleansed, and non stick dressing applied with Kerlix. Will order oral ATB. Follow up with PCP if no improvement in symptoms. - cephalexin (Keflex) 500 MG capsule; Take 1 capsule (500 mg) by mouth in the morning and 1 capsule (500 mg) before bedtime. Do all this for 7 days. Dispense: 14 capsule; Refill: 0 - Wound Care 2. Fall, initial encounter Patient fell in driveway last week and did not seek medical attention. She does have a skin tear to her LLE that she has been using triple antibiotic ointment. There has been some new surrounding erythema so son brought her in today. Patient left the urgent care without getting her Tetanus shot updated. She was called by electrician front staff Charly and a VM was left. Associated Order(s): Wound Care Post-Procedure Diagnose(s): Skin tear of left lower leg without complication, initial encounter Images from the original note were not included. Patient ID: Dacia Sprague is a 83 y.o. female. Wound Care Date/Time: 04/16/2024 3:37 PM Performed by: Светлана Amador MA Authorized by: Arielle Ferrara NP Consent: Consent obtained: Verbal Consent given by: Patient Risks discussed: Bleeding, infection and pain Procedure details: Wound location: Leg Leg location: L lower leg Post-procedure details: Procedure completion: Tolerated Comments: Wound cleaned with sterile water, 2x3 nonadherent gauze pad with bacitracin applied, Kerlix wrapped around the leg. documented in this encounter [facility] 04-10-2024 History of Presen t illness Narrative Associated Problem(s): Parkinson disease (CMS/HCC) (Continue current regimen.) Continue home PT for PD. Associated Problem(s): Spondylosis of lumbar spine Offered nsurg consult, pt declined. Associated Problem(s): Lumbar paraspinal muscle spasm Pt may still use tizanidine 2 hs. Lumbar PT when/if needed. Associated Problem(s): Cervical paraspinal muscle spasm (Continue home PT.) Formal PT as necessary. Associated Problem(s): Polyneuropathy (Continue glycaemic index.) Associated Problem(s): Idiopathic scoliosis of lumbar spine Consult Cori - are there lumbar braces that would be helpful to pt? Images from the original note were not included. Outpatient Progress Note Patient: Dacia Sprague Dept: Neurology : 1940 Appt Date: 04/10/2024 Prev Appt: 01/10/2024 Chief Complaint Patient presents with Parkinson's Disease Assessment and Plan - Assessment & Plan Parkinson's disease without dyskinesia or fluctuating manifestations (CMS/HCC) (Continue current regimen.) Continue home PT for PD. Other idiopathic scoliosis, lumbar region Consult Cori - are there lumbar braces that would be helpful to pt? Spondylosis of lumbar spine Offered nsurg consult, pt declined. Lumbar paraspinal muscle spasm Pt may still use tizanidine 2 hs. Lumbar PT when/if needed. Cervical paraspinal muscle spasm (Continue home PT.) Formal PT as necessary. Polyneuropathy (Continue glycaemic index.) No orders of the defined types were placed in this encounter. Follow-Up - No follow-ups on file. History of Present Illness, Associated Treatments and Results - Dx PD Tx Sinemet 25/100 1.5 tabs @ 09, 13, 17, 21 + entacapone 200 qid AEs Hx Pt uncertain of improvement (but see exam), mostly focusing on effects of lower back. Onset Semeiology Tremor L>R, shuffling gait, difficulty rising from a chair, handwriting smaller. Imaging Testing Surgery Failed Sinemet 25/100 ER (dizziness, ataxia) Dx PN Tx AEs Hx Denies burning, paraesthesiae. Onset Semeiology numbness in feet. Imaging Testing +[facility] (04/2020) Labs - A1c=5.7, was 6.7, 5.5 Surgery Failed meloxicam 15 (ineff, somn) Dx MYOFASCIITIS . (PAIN) . (SCOLIOSIS) Tx home PT + Mg 250 (+ injs --pain mgt) AEs Hx Back pain - remains, quite bothersome. Still needs Tylenol PM to sleep. Scoliosis - 35 deg curvature. Onset Semeiology Imaging XR L-s (09/2022, [facility]) - scoliosis prominent , anterolisth L4-[address] Grant (urg) recommended against surgery.. Failed Physical Exam - General appearance, mentation, extraocular movements, facial strength and movement, hearing, upper and lower extremity strength and tone, sensation to gross testing, coordination, and gait are normal or at baseline unless noted below. HEENT - ___, unchanged: ___, orig: ___ MS - ___, unchanged: ___, orig: ___ CNN - ___, unchanged: [place], orig: ___ Motor - BF 4+B, unchanged: ___, orig: ___ Sens - ___, unchanged: Vibr loss distal LEs, orig: ___ Reflex - ___, unchanged: ___, orig: ___ Coord - Rigidity signif improved, unchanged: Cogwheeling ... Tremor minimal ... Rigidity L>R, orig: ___ Gait - Rises from chair more easily ... stride length better again ... Very hunched over, short steps, appear to be antalgic, unchanged: Very slow, very short steps ... L arm swing lower ... Very slow arising from chair ... Cane, orig: ___ Vestib - ___, unchanged: ___, orig: ___ MSK - Spasm - C T L sev, unchanged: ___, orig: ___ Other - ___, unchanged: ___, orig: ___ Vital Signs - Visit Vitals Smoking Status Never Review of Systems - . Const: Denies appetite change, fever, chills. Allergy: Denies medication reaction. Ocular: Denies visual acuity change. ENT: Denies hearing change. Endoc: Denies weight loss. Resp: Denies dyspnoea, wheezing. Cardiac: Denies angina, palpitations. GI: Denies nausea, vomiting. Haem: Denies bleeding. : Denies incontinence. MSK: Denies arthralgias, joint oedema. Derm: Denies rash, hair loss. Neuro: Denies ataxia, tremor. Also see HPI for elements of ROS documented therein and for details of positive findings, which shall supersede the foregoing. PMH, PSH, Allergies, FH, SH - Past Medical History: Diagnosis Date Actinic keratosis Parkinsons (CMS/HCC) Scoliosis Past Surgical History: Procedure Laterality Date DILATION AND CURETTAGE OF UTERUS No Known Allergies Family History Problem Relation Name Age of Onset Stroke Mother Hypertension Mother Melanoma Neg Hx Outpatient Encounter Medications as of 04/10/2024 Medication Sig Dispense Refill HYDROcodone-acetaminophen ([place]) 5-325 MG tablet TAKE 1/2 (ONE-HALF) OF A TABLET BY MOUTH EVERY DAY NEEDED FOR PAIN Acetaminophen (TYLENOL ARTHRITIS PAIN PO) Tylenol Arthritis Pain Ascorbic Acid (vitamin C) 1000 MG tablet 1 (one) time each day at the same time. BABY ASPIRIN PO Take by mouth Calcium Carb-Cholecalciferol (CALCIUM + D3 PO) Calcium + D3 carbidopa-levodopa (Sinemet) 25-100 MG tablet 1.5 tabs 4 times daily at 09, 1300, 1700, 2100 180 tablet 5 Cyanocobalamin (VITAMIN B-12 CR PO) Vitamin B12 entacapone (Comtan) 200 MG tablet 1 tab 4 times daily (w/Sinemet) 120 tablet 6 magnesium 200 MG tablet Daily Multiple Vitamin (MULTI VITAMIN DAILY PO) Multi Vitamin Daily tiZANidine (Zanaflex) 2 MG tablet Take 1 tablet (2 mg) by mouth at bedtime 30 tablet 5 zinc 30 MG tablet Daily No facility-administered encounter medications on file as of 04/10/2024. Ankit Resendiz M.D. [facility] Neurology ? [address] ? [place], [place] [address] ? ? fax Neurology ? Clinical Neurophysiology ? Epilepsy ? Sleep Disorders ? Clinical Informatics documented in this encounter [facility] 03-15-2024 History of Presen t illness Narrative [...] Visit: 1 year documented in this encounter [facility] 04-11-2023 Evaluation note Encounter Date Diagnosis Assessment Notes Mar, Mixed stress and urge urinary incontinence (ICD-10 - N39.46) States improvement on myrbetriq, continue at 25mg dose Mar, Abnormal MRI, lumbar spine (ICD-10 - R93.7) will contact pain mgmt with her concerns. [email or web address] Other 10-09-2023 Evaluation note* Encounter Date Diagnosis Assessment Notes Treatment Notes Treatment Clinical Notes Feb, Mixed stress and urge urinary incontinence (ICD-10 - N39.46) [email or web address] Other 09-12-2023 Evaluation note* Encounter Date Diagnosis Assessment Notes Treatment Notes Treatment Clinical Notes Jan, Mixed stress and urge urinary incontinence (ICD-10 - N39.46) Myrbetriq #28 samples given to pt. Discussed potential referral to Urology due to the amount of leakage. Pt just went through a lot of appts, procedures w pain management. Will start w myrbetriq and consider referral in a few weeks if not improved. [email or web address] Other Evaluation noteNo assessment information available [facility] Work Phone: Evaluation noteNo InformationNort [employer] Other Evaluation note* Diagnosis Parkinson disease (CMS/HCC)- Primary Paralysis agitans [...] keratosis Lentigines [facility] Diagnosis Parkinson disease (CMS/HCC)- Primary Paralysis agitans [...] Polyneuropathy Unspecified hereditary and idiopathic peripheral neuropathy Parkinson's disease without dyskinesia or fluctuating manifestations (CMS/HCC)- Primary Other idiopathic scoliosis, lumbar region Spondylosis of lumbar spine Lumbar paraspinal muscle spasm Other symptoms referable to back Cervical paraspinal muscle spasm Spasm of muscle Polyneuropathy Unspecified hereditary and idiopathic peripheral neuropathy [facility] Diagnosis Parkinson disease (CMS/HCC)- Primary Paralysis agitans [...] Polyneuropathy Unspecified hereditary and idiopathic peripheral neuropathy Parkinson's disease without dyskinesia or fluctuating manifestations (CMS/HCC)- Primary Other idiopathic scoliosis, lumbar region Spondylosis of lumbar spine Lumbar paraspinal muscle spasm Other symptoms referable to back Cervical paraspinal muscle spasm Spasm of muscle Polyneuropathy Unspecified hereditary and idiopathic peripheral neuropathy Skin tear of left lower leg without complication, initial encounter- Primary Fall, initial encounter [facility] - Reported* Type Description Date Medical History SCOLIOSIS Medical History Parkinson Surgical History D&C Hospitalization History SEE ABOVE [email or web address] Other Summary Purpose Family History Relationship Condition Age at Onset Recorded Date/T breanna father Unknown family member Unknown mother Unknown sister Unknown Advance Directives Advance Directive Response Recorded Date/ Time Advance Directives No May 02, 2017 11:42am Advance Directive Response Recorded Date/ Time Advance Directives No May 02, 2017 12:42pm Chief Complaint and Reason for Visit Chief Complaint G62.9;R79.89 Chief Complaint See order Chief Complaint complete Chief Complaint Admit Date Had Fall-f/u June 08, 2024 1 1:36am Additional Source Comments INFORMATION SOURCE (unrecogn ized section and content) DATE CREATED AUTHOR 06/03/2018 [facility] DATE CREATED AUTHOR AUTHOR'S ORGANIZ ATION 10/26/2019 [employer] DATE CREATED AUTHOR AUTHOR'S ORGANIZ ATION 11/26/2021 [facility] DATE CREATED AUTHOR AUTHOR'S ORGANIZ ATION 02/16/2023 [facility] DATE CREATED AUTHOR AUTHOR'S ORGANIZ ATION 03/28/[address] [facility] DATE CREATED AUTHOR AUTHOR'S ORGANIZ ATION 04/18/2024 [facility] EPIC Care Teams (unrecognized sec tion and content) Team Status: Inactive Member Role Status Dates Amrita Grant MD Primary Care Provider, Referring P pricilla Active Ankit Resendiz MD Attending Provider Active Team Status: Active Member Role Status Dates Amrita Grant MD Primary Care Provider Active Team Status: Inactive Member Role Status Dates Amrita Garnt MD Primary Care Provider Active Ankit Resendiz MD Attending Provider Active Team Status: Inactive Member Role Status Dates Amrita Grant MD Primary Care Provider Active Outreach [facility] Attending Provider Active Team Status: Inactive Member Role Status Dates Amrita Grant MD Attending Provider Active Registered Travel Nurse Relationship Specialty Start Date End Date Amrita Grant MD [address] [place] [id number] PCP - General Family Medicine 01/04/23 Registered Travel Nurse Relationship Specialty Start Date End Date Amrita Grant MD [address] [place] [id number] PCP - General Family Medicine 01/04/23 Registered Travel Nurse Relationship Specialty Start Date End Date Amrita Grant MD [address] [place] [id number] PCP - General Family Medicine 01/04/23 Registered Travel Nurse Relationship Specialty Start Date End Date Amrita Grant MD [address] [place] [phone] PCP - General Family Medicine 01/04/23 Registered Travel Nurse Relationship Specialty Start Date End Date Amrita Grant MD [address] [place] [phone] PCP - General Family Medicine 01/04/23 Team Status: Active Member Role Status Dates PHYSICIAN NO FAMILY Primary Care Provider Active Team Status: Inactive Member Role Status Dates PHYSICIAN NO FAMILY Primary Care Provider Active Start: June 08, 2024 End: June 08, 2024 Amrita Grant MD Attending Provider Active St art: June 08, 2024 End: June 08, 2024 Goals (unrecognized section and content) Goals may be documented in a n alternate sectionGoals may be documented in an alternate sectionGoals may be documented in an alternate sectionNo InformationNo InformationGoals may be documented in an alternate sectionNo InformationNo InformationNo InformationGoals may be documented in an alternate section REASON FOR VISIT (unrecogniz ed section and content) Reason Comments Skin Check Reason Comments Parkinson's Disease FOR RECORDS PERTAINING TO PATIENTS WHO ARE [...] BE BASED ON THE PRIMARY CLINICAL RECORDS. [employer] provides no warranty or guarantee of the accuracy or completeness of information in this document.
== END 2024-06-28 14:27 | disposition home or self-care (01) ==
PROVIDERS: PCP Family Medicine; Visit Provider Nurse Practitioner
DX: R26.9 Unspecified abnormalities of gait and mobility (principal); M48.062 Spinal stenosis, lumbar region with neurogenic claudication; M53.3 Sacrococcygeal disorders, not elsewhere classified; M47.816 Spondylosis without myelopathy or radiculopathy, lumbar region; M41.86 Other forms of scoliosis, lumbar region; Z79.891 Long term (current) use of opiate analgesic
CPT/HCPCS: G0463